=== PATIENT | male | born 1935 | race Caucasian/White ===

== ENCOUNTER 2021-08-07 17:03 | Inpatient (IN) | payer MEDICARE ==
[~2021-08-07] VITALS: Ht 182.9 cm; Wt 55.3 kg
[2021-08-07] MEDS ORDERED: TIOT18CA IH (17:48)
[2021-08-07] MEDS ORDERED: AMLO-186 PO (17:48)
[2021-08-07] MEDS ORDERED: CHOL10004 PO (17:48)
[2021-08-07] MEDS ORDERED: ALBU2.5V5 NEB (17:48)
[2021-08-07] MEDS ORDERED: ACET325T21 PO (17:48)
[2021-08-07] MEDS ORDERED: UBID100T5 PO (17:48)
[2021-08-07] MEDS ORDERED: MELA3TAB4 PO (17:48)
[2021-08-07] MEDS ORDERED: FOLIC ACID PO (17:48)
[2021-08-07] MEDS ORDERED: CALC-30 PO (17:48)
[2021-08-07] MEDS ORDERED: BUDE10.2 IH (17:48)
[2021-08-07] MEDS ORDERED: DONE5TAB7 PO (17:48)
[2021-08-07] MEDS ORDERED: ALBUTEROL SULFATE 2.5 MG/3 ML NEBU. NEB PRN (18:45)
[2021-08-07] MEDS ORDERED: METHYL SALICYLATE/MENTHOL TOPICAL OINTMENT 57GM TUBE. TP PRN (18:45)
[2021-08-07] MEDS ORDERED: ACETAMINOPHEN 325 MG TABLET PO PRN (18:45)
[2021-08-07] MEDS ORDERED: MAGNESIUM HYDROXIDE 2,400 MG/30 ML ORAL.SUSP. PO PRN (18:45)
[2021-08-07] MEDS ORDERED: MAG HYDROX/AL HYDROX/SIMETH 30 ML ORAL.SUSP PO PRN (18:45)
[2021-08-07] MEDS ORDERED: IPRATRPIUM/ALBUTEROL 0.5/2.5MG 3 ML NEBU. NEB SCH (20:00)
[2021-08-07] MEDS ORDERED: IPRATROPIUM/ALBUTEROL 20/100mcg/INH INHALER. INH PRN (20:00)
[2021-08-07] MEDS ORDERED: BUDESONIDE 0.5 MG/2 ML NEBU NEB SCH (20:00)
[2021-08-07] MEDS ORDERED: DONEPEZIL HCL 5 MG TABLET. PO SCH (21:00)
[2021-08-07] MEDS ORDERED: MELATONIN 3 MG TABLET PO SCH (21:00)
[2021-08-07] MEDS: FLUTICASONE FUROATE 100mcg/INH ELLIPTA INHALER. INH SCH (21:00)
[2021-08-07] MEDS ORDERED: NON FORMULARY ITEM (Budesonide/Formoterol Fumarate (Symbicort 160-4.5 Mcg Inhaler) 2 PUFF) IH SCH (21:00)
--- NOTE | 2021-08-07 22:23 | PDOC ---
Exam Note: Marvin Note: Please also refer to the separate dictated note~for this date of service dictated separately.~Patient seen individually. Discussed the patient with Nursing staff reviewed the chart.~Reviewed interim history and current functioning. Reviewed vital signs,~Labs/ Radiology~and current medications noted below. Continue current treatment with the changes noted in the dictated addendum note Current Medications: Meds: Current Medications Medications (Trade) Dose Ordered Sig/Joyce Route PRN Reason Start Time Stop Time Status Last Admin Dose Admin Donepezil HCl (Aricept) 5 mg HS PO 08/07/21 21:00 08/07/21 20:18 Melatonin (Melatonin) 6 mg QHS PO 08/07/21 21:00 08/07/21 20:18 I have reviewed the current psychotropics carefully including drug interactions. Risk benefit ratio favors no change other than as noted in my dictated progress note. Diagnosis: Problems: (1) Impulse control disorder LES MORA MD Aug 07, 2021 22:23
[2021-08-08 06:07] VITALS: BP 120/84
[2021-08-08 07:50] LABS: BASO % 0 % (0-3); EOS % 0 % (0-3); HEMATOCRIT 37.7 % (39.0-53.0); HEMOGLOBIN 12.5 g/dL (13.0-17.5); LYMPH # 1.7 x10^3/uL (1.0-4.8); LYMPH % 8 % (24-48); MEAN CORPUSCULAR HEMOGLOBIN 31 pg (25-35); MEAN CORPUSCULAR HGB CONC 33 g/dL (31-37); MEAN CORPUSCULAR VOLUME 93 fL (79-100); MONO # 1.2 x10^3/uL (0.0-1.1); MONO % 5 % (0-9); NEUT # 19.3 x10^3uL (1.8-7.7); NEUT % 87 % (31-73); PLATELET COUNT 292 x10^3/uL (140-400); RED BLOOD COUNT 4.05 x10^6/uL (4.30-5.70); RED CELL DISTRIBUTION WIDTH 13.4 % (11.5-14.5); WHITE BLOOD COUNT 22.2 x10^3/uL (4.0-11.0)
[2021-08-08 08:01] LABS: ALBUMIN 2.9 g/dL (3.4-5.0); ALBUMIN/GLOBULIN RATIO 0.6 (1.0-1.7); CALCIUM 8.7 mg/dL (8.5-10.1); CREATININE 0.9 mg/dL (0.7-1.3); GFR 80.2; MAGNESIUM 1.9 mg/dL (1.8-2.4); POTASSIUM 3.6 mmol/L (3.5-5.1); TOTAL BILIRUBIN 0.8 mg/dL (0.2-1.0); TOTAL PROTEIN 7.4 g/dL (6.4-8.2)
[2021-08-08] MEDS ORDERED: NON FORMULARY ITEM (Tiotropium Bromide (Spiriva) 1 CAP) IH SCH (09:00)
[2021-08-08] MEDS: FLUTICASONE FUROATE 100mcg/INH ELLIPTA INHALER. INH SCH ×2 (09:00→20:17)
[2021-08-08] MEDS ORDERED: FLU VACC QUAD 21-22 (6MOS+) PF 0.5 ML SYRINGE. VAX IM ONE (09:00)
[2021-08-08] MEDS: UBIDECARENONE 50 MG CAPSULE. PO SCH (10:36)
[2021-08-08] MEDS: FOLIC ACID 1 MG TABLET PO SCH (10:37)
[2021-08-08] MEDS: CALCIUM CARB/VIT D3 500/200 TABLET PO SCH (10:37)
[2021-08-08] MEDS: amLODIPine BESYLATE 5 MG TABLET PO SCH (10:37)
[2021-08-08 13:50] LABS: % ATYL 2 % (0-0); % BANDS 8 % (0-9); % LYMPHS 7 % (24-48); % MONOS 7 % (0-10); % SEGS 76 % (35-66)
[2021-08-08 13:54] LABS: PLT ESTIMATE ADEQUATE (ADEQUATE)
[2021-08-08 15:37] VITALS: BP 146/73
[2021-08-08] MEDS ORDERED: DEXTROSE 50% 25 GM / 50ML DISP.SYRIN. IV PRN (17:00)
[2021-08-08] MEDS: INSULIN LISPRO 300 UNITS/3 ML VIAL. SQ SCH (17:00)
--- NOTE | 2021-08-08 19:13 | RAD ---
EXAM: PA and Lateral Views of the Chest DATE: 08/08/2021 5:46 PM INDICATION: Reason: worsening shortness of breath and leukocytosis / Spl. Instructions: / History: COMPARISON: No Prior FINDINGS: The heart is not enlarged. Mediastinal and hilar contours are normal. Aortic calcifications are seen. Nodular opacity right lower lung. Linear opacities left lung base. No pleural effusion or pneumothorax. IMPRESSION: Nodular opacity right lower lung, possibly developing consolidative process. However imaging follow-u p to resolution is recommended as underlying mass is not excluded. Electronically signed by: Colin Herrera MD (08/08/2021 7:10 PM) PRANAY
--- NOTE | 2021-08-08 19:15 | RAD ---
EXAM: 2 views left hand DATE: 08/08/2021 5:46 PM INDICATION: Reason: skin tear, redness, concen for infection / Spl. Instructions: / History: . COMPARISON: No Prior FINDINGS: Atherosclerotic vascular calcifications are seen. With advanced thumb CMC DJD. Multifocal scattered I P DJD. Borderline ulnar minus variance. Distal radioulnar joint degenerative changes are seen. No acu te fracture or dislocation. No definite retained radiopaque foreign body. Prominent dorsal soft tissu e swelling overlying the metacarpals. IMPRESSION: 1. Soft tissue swelling overlying the dorsal metacarpals without acute fracture or dislocation or re tained foreign body. 2. Multifocal degenerative changes, with advanced thumb CMC DJD. Electronically signed by: Colin Herrera MD (08/08/2021 7:13 PM) PRANAY
[2021-08-08 20:08] LABS: THYROID STIM HORMONE (TSH) 0.351 uIU/mL (0.358-3.740)
[2021-08-08] MEDS: MELATONIN 3 MG TABLET PO SCH (20:18)
[2021-08-08] MEDS: MIRTAZAPINE 7.5 MG TABLET. PO SCH (20:18)
[2021-08-08] MEDS ORDERED: DONEPEZIL HCL 10 MG TABLET PO SCH (21:00)
--- NOTE | 2021-08-08 22:00 | PDOC ---
Exam Note: Marvin Note: Please also refer to the separate dictated note~for this date of service dictated separately.~Patient seen individually. Discussed the patient with Nursing staff reviewed the chart.~Reviewed interim history and current functioning. Reviewed vital signs,~Labs/ Radiology~and current medications noted below. Continue current treatment with the changes noted in the dictated addendum note Assessment: Vital Signs/I&O: Vital Signs Date Time Temp Pulse Resp B/P (MAP) Pulse Ox O2 Delivery O2 Flow Rate FiO2 08/08/21 15:37 98.9 80 20 146/73 (97) 94 I & O 08/07/21 08/07/21 08/08/21 15:00 23:00 07:00 Intake Total 120 ml Balance 120 ml Labs: Laboratory Tests Test 08/08/21 06:50 08/08/21 17:44 08/08/21 19:23 White Blood Count 22.2 x10^3/uL (4.0-11.0) H Red Blood Count 4.05 x10^6/uL (4.30-5.70) L Hemoglobin 12.5 g/dL (13.0-17.5) L Hematocrit 37.7 % (39.0-53.0) L Mean Corpuscular Volume 93 fL (79-100) Mean Corpuscular Hemoglobin 31 pg (25-35) Mean Corpuscular Hemoglobin Concent 33 g/dL (31-37) Red Cell Distribution Width 13.4 % (11.5-14.5) Platelet Count 292 x10^3/uL (140-400) Neutrophils (%) (Auto) 87 % (31-73) H Lymphocytes (%) (Auto) 8 % (24-48) L Monocytes (%) (Auto) 5 % (0-9) Eosinophils (%) (Auto) 0 % (0-3) Basophils (%) (Auto) 0 % (0-3) Neutrophils # (Auto) 19.3 x10^3uL (1.8-7.7) H Lymphocytes # (Auto) 1.7 x10^3/uL (1.0-4.8) Monocytes # (Auto) 1.2 x10^3/uL (0.0-1.1) H Eosinophils # (Auto) 0.0 x10^3/uL (0.0-0.7) Basophils # (Auto) 0.0 x10^3/uL (0.0-0.2) Segmented Neutrophils % 76 % (35-66) H Band Neutrophils % 8 % (0-9) Lymphocytes % 7 % (24-48) L Atypical Lymphocytes % (Manual) 2 % (0-0) H Monocytes % 7 % (0-10) Platelet Estimate Adequate (ADEQUATE) D-Dimer (Jacque) 0.74 mg/L (0.00-0.50) H Sodium Level 133 mmol/L (136-145) L Potassium Level 3.6 mmol/L (3.5-5.1) Chloride Level 99 mmol/L (98-107) Carbon Dioxide Level 24 mmol/L (21-32) Anion Gap 10 (6-14) Blood Urea Nitrogen 22 mg/dL (8-26) Creatinine 0.9 mg/dL (0.7-1.3) Estimated GFR (Cockcroft-Gault) 80.2 BUN/Creatinine Ratio 24 (6-20) H Glucose Level 195 mg/dL (70-99) H Calcium Level 8.7 mg/dL (8.5-10.1) Magnesium Level 1.9 mg/dL (1.8-2.4) Iron Level 15 ug/dL (65-175) L Total Iron Binding Capacity 175 ug/dL (250-450) L Iron Saturation 9 % (15-34) L Total Bilirubin 0.8 mg/dL (0.2-1.0) Aspartate Amino Transferase (AST) 15 U/L (15-37) Alanine Aminotransferase (ALT) 22 U/L (16-63) Alkaline Phosphatase 75 U/L (46-116) Total Protein 7.4 g/dL (6.4-8.2) Albumin 2.9 g/dL (3.4-5.0) L Albumin/Globulin Ratio 0.6 (1.0-1.7) L Triglycerides Level 40 mg/dL (0-150) Cholesterol Level 163 mg/dL (0-200) LDL Cholesterol, Calculated 102 mg/dL (0-100) H VLDL Cholesterol, Calculated 8 mg/dL (0-40) Non-HDL Cholesterol Calculated 110 mg/dL (0-129) HDL Cholesterol 53 mg/dL (40-60) Cholesterol/HDL Ratio 3.0 Vitamin B12 Level 430 pg/mL (247-911) 25-Hydroxy Vitamin D Total 12.7 ng/mL (30-100) L Thyroid Stimulating Hormone (TSH) 0.351 uIU/mL (0.358-3.740) Treponema pallidum Antibody Nonreactive (Nonreactive) Glucose (Fingerstick) 231 mg/dL (70-99) H 210 mg/dL (70-99) H Current Medications: Meds: Laboratory Tests Test 08/08/21 06:50 08/08/21 17:44 08/08/21 19:23 White Blood Count 22.2 x10^3/uL Red Blood Count 4.05 x10^6/uL Hemoglobin 12.5 g/dL Hematocrit 37.7 % Mean Corpuscular Volume 93 fL Mean Corpuscular Hemoglobin 31 pg Mean Corpuscular Hemoglobin Concent 33 g/dL Red Cell Distribution Width 13.4 % Platelet Count 292 x10^3/uL Neutrophils (%) (Auto) 87 % Lymphocytes (%) (Auto) 8 % Monocytes (%) (Auto) 5 % Eosinophils (%) (Auto) 0 % Basophils (%) (Auto) 0 % Neutrophils # (Auto) 19.3 x10^3uL Lymphocytes # (Auto) 1.7 x10^3/uL Monocytes # (Auto) 1.2 x10^3/uL Eosinophils # (Auto) 0.0 x10^3/uL Basophils # (Auto) 0.0 x10^3/uL Segmented Neutrophils % 76 % Band Neutrophils % 8 % Lymphocytes % 7 % Atypical Lymphocytes % (Manual) 2 % Monocytes % 7 % Platelet Estimate Adequate D-Dimer (Jacque) 0.74 mg/L Sodium Level 133 mmol/L Potassium Level 3.6 mmol/L Chloride Level 99 mmol/L Carbon Dioxide Level 24 mmol/L Anion Gap 10 Blood Urea Nitrogen 22 mg/dL Creatinine 0.9 mg/dL Estimated GFR (Cockcroft-Gault) 80.2 BUN/Creatinine Ratio 24 Glucose Level 195 mg/dL Calcium Level 8.7 mg/dL Magnesium Level 1.9 mg/dL Iron Level 15 ug/dL Total Iron Binding Capacity 175 ug/dL Iron Saturation 9 % Total Bilirubin 0.8 mg/dL Aspartate Amino Transf (AST/SGOT) 15 U/L Alanine Aminotransferase (ALT/SGPT) 22 U/L Alkaline Phosphatase 75 U/L Total Protein 7.4 g/dL Albumin 2.9 g/dL Albumin/Globulin Ratio 0.6 Triglycerides Level 40 mg/dL Cholesterol Level 163 mg/dL LDL Cholesterol, Calculated 102 mg/dL VLDL Cholesterol, Calculated 8 mg/dL Non-HDL Cholesterol Calculated 110 mg/dL HDL Cholesterol 53 mg/dL Cholesterol/HDL Ratio 3.0 Vitamin B12 Level 430 pg/mL 25-Hydroxy Vitamin D Total 12.7 ng/mL Thyroid Stimulating Hormone (TSH) 0.351 uIU/mL Treponema pallidum Antibody Nonreactive Glucose (Fingerstick) 231 mg/dL 210 mg/dL Current Medications Medications (Trade) Dose Ordered Sig/Joyce Route PRN Reason Start Time Stop Time Status Last Admin Dose Admin Acetaminophen (Tylenol) 650 mg PRN Q4HRS PRN PO pain or fever 08/07/21 18:45 Albuterol Sulfate (Ventolin) 2.5 mg PRN Q6HRS PRN NEB SHORTNESS OF AIR 08/07/21 18:45 08/07/21 19:47 DC Amlodipine Besylate (Norvasc) 5 mg DAILY PO 08/08/21 09:00 08/08/21 10:37 Vitamin D (Vitamin D3) 5,000 unit WEEKLY PO 08/14/21 09:00 Donepezil HCl (Aricept) 5 mg HS PO 08/07/21 21:00 08/08/21 18:37 DC 08/07/21 20:18 Melatonin (Melatonin) 6 mg QHS PO 08/07/21 21:00 08/08/21 18:37 DC 08/07/21 20:18 Non-Formulary Medication (Budesonide/ Formoterol Fumarate (Symbicort 160-4.5 Mcg Inhaler)) 2 puff BID IH 08/07/21 21:00 08/07/21 19:24 DC Calcium/Vitamin D (Oscal D 500mg/ 200uts) 1 tab DAILY PO 08/08/21 09:00 08/08/21 10:37 Non-Formulary Medication (Tiotropium [place] (Spiriva)) 1 cap DAILY IH 08/08/21 09:00 08/07/21 19:24 DC Coenzyme Q10 (Coenzyme Q10) 50 mg DAILY PO 08/08/21 09:00 08/08/21 10:36 Folic Acid (Folic Acid) 1 mg DAILY PO 08/08/21 09:00 08/08/21 10:37 Acetaminophen (Tylenol) 650 mg PRN Q6HRS PRN PO MILD PAIN / TEMP > 100.3'F 08/07/21 18:45 08/07/21 18:51 DC Multi-Ingredient Ointment (Analgesic [place]) 1 niles PRN QID PRN TP MUSCLE PAIN 08/07/21 18:45 Al Hydroxide/Mg Hydroxide (Mylanta Plus Xs) 15 ml PRN AFTMEALHC PRN PO DYSPEPSIA 08/07/21 18:45 Magnesium Hydroxide (Milk Of Magnesia) 2,400 mg PRN QHS PRN PO CONSTIPATION 08/07/21 18:45 Influenza Virus Vaccine Quadrival (Flulaval Quad [id number] Syringe) 0.5 ml ONCE ONCE VAX IM 08/08/21 09:00 08/08/21 09:01 DC 08/08/21 10:45 Budesonide (Pulmicort) 0.5 mg RTBID NEB 08/07/21 20:00 08/07/21 19:48 DC Albuterol/ Ipratropium (Duoneb) 3 ml RTQID NEB 08/07/21 20:00 08/07/21 19:49 DC Albuterol/ Ipratropium (Combivent Respimat 20-100 Mcg) 1 puff PRN Q6HRS PRN INH SHORTNESS OF BREATH 08/07/21 20:00 Fluticasone Furoate (ARNUITY 100mcg ELLIPTA) 1 puff BID INH 08/07/21 21:00 08/08/21 20:17 Insulin Human Lispro (HumaLOG) 0-5 UNITS TIDWMEALS SQ 08/08/21 17:00 Dextrose (Dextrose 50%-Water Syringe) 12.5 gm PRN Q15MIN PRN IV SEE COMMENTS 08/08/21 17:00 Donepezil HCl (Aricept) 10 mg HS PO 08/08/21 21:00 08/08/21 20:18 Melatonin (Melatonin) 3 mg QHS PO 08/08/21 21:00 08/08/21 20:18 Rivastigmine (Exelon) 1 patch DAILY TD 08/09/21 09:00 08/11/21 23:50 Rivastigmine (Exelon) 1 patch DAILY TD 08/12/21 09:00 08/14/21 23:50 Rivastigmine (Exelon 13.3mg) 1 patch DAILY TD 08/15/21 09:00 Mirtazapine (Remeron) 7.5 mg QHS PO 08/08/21 21:00 08/08/21 20:18 Current Medications Medications (Trade) Dose Ordered Sig/Joyce Route PRN Reason Start Time Stop Time Status Last Admin Dose Admin Amlodipine Besylate (Norvasc) 5 mg DAILY PO 08/08/21 09:00 08/08/21 10:37 Calcium/Vitamin D (Oscal D 500mg/ 200uts) 1 tab DAILY PO 08/08/21 09:00 08/08/21 10:37 Coenzyme Q10 (Coenzyme Q10) 50 mg DAILY PO 08/08/21 09:00 08/08/21 10:36 Folic Acid (Folic Acid) 1 mg DAILY PO 08/08/21 09:00 08/08/21 10:37 Influenza Virus Vaccine Quadrival (Flulaval Quad Syringe) 0.5 ml ONCE ONCE VAX IM 08/08/21 09:00 08/08/21 09:01 DC 08/08/21 10:45 Donepezil HCl (Aricept) 10 mg HS PO 08/08/21 21:00 08/08/21 20:18 Melatonin (Melatonin) 3 mg QHS PO 08/08/21 21:00 08/08/21 20:18 Mirtazapine (Remeron) 7.5 mg QHS PO 08/08/21 21:00 08/08/21 20:18 I have reviewed the current psychotropics carefully including drug interactions. Risk benefit ratio favors no change other than as noted in my dictated progress note. Diagnosis: Problems: (1) Impulse control disorder LES MORA MD Aug 08, 2021 22:00
[2021-08-08 22:16] LABS: THYROXINE 7.4 ug/dL (4.5-12.0)
[2021-08-09 01:07] LABS: HEMOGLOBIN A1C 6.1 % (4.8-5.6)
--- NOTE | 2021-08-09 02:57 | CONS ---
DATE OF CONSULTATION: 08/08/2021 REASON FOR CONSULTATION: Medical management. HISTORY OF PRESENT ILLNESS: The patient is an 86-year-old male patient, a resident at [facility] in [place], who was [facility] on account of eloping from the facility, then getting lost, slamming doors, agitated, verbally aggressive, attempting to hit staff, all this in a background of impulse control disorder. PAST MEDICAL HISTORY: The patient himself does not really give any useful information; however, when I examined him, his left hand was markedly swollen with open wound; however, he could not really give me any explanation for why his hand is swollen. His white cell count is also extremely high at 22,000. 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 He has also severe protein calorie malnutrition. PAST SURGICAL HISTORY: Unobtainable. FAMILY HISTORY: Unobtainable. SOCIAL HISTORY: He is a resident at [facility]. He is , has a son and a daughter. He has been a smoker before and also alcohol drinker. He used to work for the [employer]. REVIEW OF SYSTEMS: As per history of present illness. PHYSICAL EXAMINATION: GENERAL: When I examined him this afternoon, he was sitting on the edge of the bed comfortably, in no apparent distress. He was extremely cachectic, in fact, his body mass index only 17.6 kilograms/square meter. He was somewhat pale, but not jaundiced, cyanosed, no lymphadenopathy, no thyromegaly, no jugular venous distention. No lower limb edema. VITAL SIGNS: His heart rate was 18, blood pressure 146/73, temperature was 98.9, respiratory rate 20, and oxygen saturation was 94% on room air. HEAD, EYES, EARS, NOSE, AND THROAT: Showed normocephalic, atraumatic. He has a very peaked nose with very tight skin. Again, the patient with scleroderma, might have some surgery on his nose, although he denied that and was unable to give me an account for that. NECK: Supple, with no lymphadenopathy or thyromegaly. HEART: Showed normal first and second heart sounds. No gallop, rub or murmur. CHEST: Shows central trachea, equally reduced expansion, reduced air entry, vesicular breath sounds. I could not really appreciate any crepitation or rhonchi. ABDOMEN: Scaphoid, soft, nontender. NEUROLOGIC: He is awake, alert, but unable to answer my questions. All his cranial nerves seem to be grossly intact. He moves all extremities without difficulty, ambulates without assistance or assistive devices; however, he has marked muscle wasting and weakness. LABORATORY DATA: On arrival showed a white cell count 22,200, hemoglobin 12.5, hematocrit 37.7, MCV 93 and platelet count 292,000 with a manual differential showed 87% polymorphs, 8% lymphocytes, 5% monocytes. His chemistry showed a serum sodium 133, potassium 3.6, chloride 99, bicarbonate 24, anion gap of 10, BUN 22, creatinine 0.9. Estimated GFR was 80 mL per minute. His glucose 195, calcium was 8.7, magnesium was 1.9. Total bilirubin, AST, ALT, alkaline phosphatase were normal. Total protein 7.4, albumin was 2.9. His D-dimer was 0.74. ALLERGIES: ALLERGIC TO BACITRACIN, NEOMYCIN, AND POLYMYXIN B. MEDICATIONS: He is currently on the following medication: He is on Aricept 5 mg at bedtime, tiotropium bromide for Spiriva HandiHaler 1 inhalation once a day, albuterol sulfate 2.5 mg 3 mL by nebulizer every 6 hours, amlodipine besylate 5 mg once a day, acetaminophen 650 mg every 4 hours, calcium carbonate with vitamin D3 one tablet once a day, Symbicort 160/4.5 two puffs twice a day, cholecalciferol for vitamin D 125 mcg once a week, melatonin 6 mg at bedtime, coenzyme Q10 at 50 mg daily and folic acid 1 mg daily. ASSESSMENT AND PLAN: In summary, this is an 86-year-old male patient who was admitted on account of elopement from the facility, then getting lost, slamming doors, being agitated, verbally aggressive, attempting to hit the staff, all this in a background of impulse control disorder. His past medical history is significant for multiple medical problems including lung cancer, COPD, hypertension, hyperlipidemia, skin cancer, gastroesophageal reflux disease, metabolic encephalopathy, and type 2 diabetes for which he is currently on no medication. The patient has markedly elevated white cell count and also his left hand is markedly swollen on the dorsal aspect with an open wound that seems to be old. My plan is obviously to do a stat chest x-ray and x-ray of the left hand and monitor him closely as he might he has any infection. We will also send urine for culture and sensitivity. Meanwhile, we will continue with all his current medication. Thank you, Dr. Blum, for allowing me to participate in the care of this patient. ZULY DR: Amber TID: [id number]
[2021-08-09 06:27] VITALS: BP 150/78
[2021-08-09 07:19] LABS: BILIRUBIN,URINE SMALL (NEG); CLARITY,URINE HAZY; COLOR,URINE AMBER; GLUCOSE,URINE NEG (NEG); NITRITE,URINE POS (NEG); UROBILINOGEN,URINE 0.2 mg/dL (0.2 mg/dL)
[2021-08-09 07:20] LABS: BACTERIA,URINE 0 /HPF (0-FEW); HYALINE CASTS, URINE OCC /HPF; SQUAMOUS EPITHELIAL CELL,UR FEW /LPF
[2021-08-09] MEDS: INSULIN LISPRO 300 UNITS/3 ML VIAL. SQ SCH ×3 (07:50→16:46)
[2021-08-09] MEDS: amLODIPine BESYLATE 5 MG TABLET PO SCH (08:44)
[2021-08-09] MEDS: FOLIC ACID 1 MG TABLET PO SCH (08:44)
[2021-08-09] MEDS: CALCIUM CARB/VIT D3 500/200 TABLET PO SCH (08:44)
[2021-08-09] MEDS: UBIDECARENONE 50 MG CAPSULE. PO SCH (08:44)
[2021-08-09] MEDS: FLUTICASONE FUROATE 100mcg/INH ELLIPTA INHALER. INH SCH ×2 (08:45→20:20)
[2021-08-09] MEDS: RIVASTIGMINE 4.6MG PATCH. TD SCH (08:45)
[2021-08-09] MEDS ORDERED: IPRATRPIUM/ALBUTEROL 0.5/2.5MG 3 ML NEBU. NEB PRN (14:00)
[2021-08-09 16:06] VITALS: BP 123/76
[2021-08-09] MEDS: MELATONIN 3 MG TABLET PO SCH (20:19)
[2021-08-09] MEDS: MIRTAZAPINE 7.5 MG TABLET. PO SCH (20:19)
[2021-08-09] MEDS: ACETAMINOPHEN 325 MG TABLET PO PRN (20:34)
[2021-08-09] MEDS: CEPHALEXIN 250 MG CAPSULE PO SCH (21:20)
--- NOTE | 2021-08-09 22:08 | PDOC ---
Exam Note: Marvin Note: Please also refer to the separate dictated note~for this date of service dictated separately.~Patient seen individually. Discussed the patient with Nursing staff reviewed the chart.~Reviewed interim history and current functioning. Reviewed vital signs,~Labs/ Radiology~and current medications noted below. Continue current treatment with the changes noted in the dictated addendum note Assessment: Vital Signs/I&O: Vital Signs Date Time Temp Pulse Resp B/P (MAP) Pulse Ox O2 Delivery O2 Flow Rate FiO2 08/09/21 16:06 98.5 85 20 123/76 (92) 95 I & O 08/08/21 08/08/21 08/09/21 15:00 23:00 07:00 Intake Total 60 ml 360 ml Output Total 180 ml Balance 60 ml 360 ml -180 ml Labs: Laboratory Tests Test 08/09/21 05:40 08/09/21 07:32 08/09/21 11:52 08/09/21 16:39 Urine Collection Type Unknown Urine Color Yen Urine Clarity Hazy Urine pH 5.0 Urine Specific [place] >=1.030 Urine Protein 100 mg/dl (NEG-TRACE) Urine Glucose (UA) Neg mg/dL (NEG) Urine Ketones (Stick) Neg mg/dL (NEG) Urine Blood Neg (NEG) Urine Nitrite Pos (NEG) Urine Bilirubin Small (NEG) Urine Urobilinogen Dipstick 0.2 mg/dL (0.2 mg/dL) Urine Leukocyte Esterase Neg (NEG) Urine RBC 1-2 /HPF (0-2) Urine WBC 1-4 /HPF (0-4) Urine Squamous Epithelial Cells Few /LPF Urine Bacteria 0 /HPF (0-FEW) Urine Hyaline Casts Occ /HPF Urine Mucus Mod /LPF Glucose (Fingerstick) 146 mg/dL (70-99) H 188 mg/dL (70-99) H 125 mg/dL (70-99) H Current Medications: Meds: Laboratory Tests Test 08/09/21 05:40 08/09/21 07:32 08/09/21 11:52 08/09/21 16:39 Urine Collection Type Unknown Urine Color Yen Urine Clarity Hazy Urine pH 5.0 Urine Specific [place] >=1.030 Urine Protein 100 mg/dl Urine Glucose (UA) Neg mg/dL Urine Ketones (Stick) Neg mg/dL Urine Blood Neg Urine Nitrite Pos Urine Bilirubin Small Urine Urobilinogen Dipstick 0.2 mg/dL Urine Leukocyte Esterase Neg Urine RBC 1-2 /HPF Urine WBC 1-4 /HPF Urine Squamous Epithelial Cells Few /LPF Urine Bacteria 0 /HPF Urine Hyaline Casts Occ /HPF Urine Mucus Mod /LPF Glucose (Fingerstick) 146 mg/dL 188 mg/dL 125 mg/dL Current Medications Medications (Trade) Dose Ordered Sig/Joyce Route PRN Reason Start Time Stop Time Status Last Admin Dose Admin Acetaminophen (Tylenol) 650 mg PRN Q4HRS PRN PO pain or fever 08/07/21 18:45 08/09/21 20:34 Albuterol Sulfate (Ventolin) 2.5 mg PRN Q6HRS PRN NEB SHORTNESS OF AIR 08/07/21 18:45 08/07/21 19:47 DC Amlodipine Besylate (Norvasc) 5 mg DAILY PO 08/08/21 09:00 08/09/21 08:44 Vitamin D (Vitamin D3) 5,000 unit WEEKLY PO 08/14/21 09:00 Donepezil HCl (Aricept) 5 mg HS PO 08/07/21 21:00 08/08/21 18:37 DC 08/07/21 20:18 Melatonin (Melatonin) 6 mg QHS PO 08/07/21 21:00 08/08/21 18:37 DC 08/07/21 20:18 Non-Formulary Medication (Budesonide/ Formoterol Fumarate (Symbicort 160-4.5 Mcg Inhaler)) 2 puff BID IH 08/07/21 21:00 08/07/21 19:24 DC Calcium/Vitamin D (Oscal D 500mg/ 200uts) 1 tab DAILY PO 08/08/21 09:00 08/09/21 08:44 Non-Formulary Medication (Tiotropium [place] (Spiriva)) 1 cap DAILY IH 08/08/21 09:00 08/07/21 19:24 DC Coenzyme Q10 (Coenzyme Q10) 50 mg DAILY PO 08/08/21 09:00 08/09/21 08:44 Folic Acid (Folic Acid) 1 mg DAILY PO 08/08/21 09:00 08/09/21 08:44 Acetaminophen (Tylenol) 650 mg PRN Q6HRS PRN PO MILD PAIN / TEMP > 100.3'F 08/07/21 18:45 08/07/21 18:51 DC Multi-Ingredient Ointment (Analgesic [place]) 1 niles PRN QID PRN TP MUSCLE PAIN 08/07/21 18:45 Al Hydroxide/Mg Hydroxide (Mylanta Plus Xs) 15 ml PRN AFTMEALHC PRN PO DYSPEPSIA 08/07/21 18:45 Magnesium Hydroxide (Milk Of Magnesia) 2,400 mg PRN QHS PRN PO CONSTIPATION 08/07/21 18:45 Influenza Virus Vaccine Quadrival (Flulaval Quad [id number] Syringe) 0.5 ml ONCE ONCE VAX IM 08/08/21 09:00 08/08/21 09:01 DC 08/08/21 10:45 Budesonide (Pulmicort) 0.5 mg RTBID NEB 08/07/21 20:00 08/07/21 19:48 DC Albuterol/ Ipratropium (Duoneb) 3 ml RTQID NEB 08/07/21 20:00 08/07/21 19:49 DC Albuterol/ Ipratropium (Combivent Respimat 20-100 Mcg) 1 puff PRN Q6HRS PRN INH SHORTNESS OF BREATH 08/07/21 20:00 Fluticasone Furoate (ARNUITY 100mcg ELLIPTA) 1 puff BID INH 08/07/21 21:00 08/08/21 20:17 Insulin Human Lispro (HumaLOG) 0-5 UNITS TIDWMEALS SQ 08/08/21 17:00 Dextrose (Dextrose 50%-Water Syringe) 12.5 gm PRN Q15MIN PRN IV SEE COMMENTS 08/08/21 17:00 Donepezil HCl (Aricept) 10 mg HS PO 08/08/21 21:00 08/09/21 11:16 DC 08/08/21 20:18 Melatonin (Melatonin) 3 mg QHS PO 08/08/21 21:00 08/09/21 20:19 Rivastigmine (Exelon) 1 patch DAILY TD 08/09/21 09:00 08/11/21 23:50 08/09/21 08:45 Rivastigmine (Exelon) 1 patch DAILY TD 08/12/21 09:00 08/14/21 23:50 Rivastigmine (Exelon 13.3mg) 1 patch DAILY TD 08/15/21 09:00 Mirtazapine (Remeron) 7.5 mg QHS PO 08/08/21 21:00 08/09/21 20:19 Sertraline HCl (Zoloft) 25 mg DAILY PO 08/10/21 09:00 08/12/21 21:00 Sertraline HCl (Zoloft) 50 mg DAILY PO 08/13/21 09:00 Albuterol/ Ipratropium (Duoneb) 3 ml PRN QID PRN NEB WHEEZING 08/09/21 14:00 Cephalexin HCl (Keflex) 500 mg TID PO 08/09/21 21:00 08/16/21 21:00 08/09/21 21:20 Current Medications Medications (Trade) Dose Ordered Sig/Joyce Route PRN Reason Start Time Stop Time Status Last Admin Dose Admin Rivastigmine (Exelon) 1 patch DAILY TD 08/09/21 09:00 08/11/21 23:50 08/09/21 08:45 Cephalexin HCl (Keflex) 500 mg TID PO 08/09/21 21:00 08/16/21 21:00 08/09/21 21:20 I have reviewed the current psychotropics carefully including drug interactions. Risk benefit ratio favors no change other than as noted in my dictated progress note. Diagnosis: Problems: (1) Impulse control disorder LES MORA MD Aug 09, 2021 22:08
[2021-08-10 06:10] VITALS: BP 148/74
[2021-08-10 06:28] LABS: BASO # 0.1 x10^3/uL (0.0-0.2); BASO % 1 % (0-3); EOS % 0 % (0-3); HEMATOCRIT 38.3 % (39.0-53.0); HEMOGLOBIN 12.5 g/dL (13.0-17.5); LYMPH # 2.3 x10^3/uL (1.0-4.8); LYMPH % 11 % (24-48); MEAN CORPUSCULAR HEMOGLOBIN 30 pg (25-35); MEAN CORPUSCULAR HGB CONC 33 g/dL (31-37); MEAN CORPUSCULAR VOLUME 93 fL (79-100); MONO # 1.1 x10^3/uL (0.0-1.1); MONO % 6 % (0-9); NEUT # 16.7 x10^3uL (1.8-7.7); NEUT % 82 % (31-73); PLATELET COUNT 304 x10^3/uL (140-400); RED BLOOD COUNT 4.12 x10^6/uL (4.30-5.70); RED CELL DISTRIBUTION WIDTH 13.6 % (11.5-14.5); WHITE BLOOD COUNT 20.3 x10^3/uL (4.0-11.0)
--- NOTE | 2021-08-10 06:43 | EKG ---
[address] [address] Test Date: 2021-08-07 Test Time: 15:36:12 Pat Name: JOANNA ARCHIBALD Department: Room: [address] [place] [address] Gender: M Vessel Captain: : [id number] Requested By: LES MORA Order Number: [id number] Reading MD: Jonas Martinez MD Measurements Intervals [place] Rate: P: [place]: QRS: QRSD: T: QT: QTc: Interpretive Statements Non-diagnostic EKG due to motion artifaction Electronically Signed On 08-13-2021 14:08:56 [employer] by Jonas Martinez MD
[2021-08-10 06:49] LABS: ALBUMIN 2.4 g/dL (3.4-5.0); ALBUMIN/GLOBULIN RATIO 0.5 (1.0-1.7); CALCIUM 9.3 mg/dL (8.5-10.1); POTASSIUM 3.6 mmol/L (3.5-5.1); TOTAL BILIRUBIN 0.6 mg/dL (0.2-1.0); TOTAL PROTEIN 7.1 g/dL (6.4-8.2)
[2021-08-10] MEDS: FLUTICASONE FUROATE 100mcg/INH ELLIPTA INHALER. INH SCH ×2 (07:09→20:55)
[2021-08-10] MEDS: INSULIN LISPRO 300 UNITS/3 ML VIAL. SQ SCH ×3 (07:41→16:56)
[2021-08-10] MEDS: CALCIUM CARB/VIT D3 500/200 TABLET PO SCH (08:13)
[2021-08-10] MEDS: SERTRALINE 25 MG TABLET. PO SCH (08:13)
[2021-08-10] MEDS: CEPHALEXIN 250 MG CAPSULE PO SCH ×3 (08:13→20:55)
[2021-08-10] MEDS: FOLIC ACID 1 MG TABLET PO SCH (08:13)
[2021-08-10] MEDS: UBIDECARENONE 50 MG CAPSULE. PO SCH (08:13)
[2021-08-10] MEDS: amLODIPine BESYLATE 5 MG TABLET PO SCH (08:14)
[2021-08-10] MEDS: RIVASTIGMINE 4.6MG PATCH. TD SCH (08:14)
--- NOTE | 2021-08-10 08:29 | RAD ---
CT HEAD/BRAIN WO Date: 08/10/2021 8:00 AM Clinical Indication: Altered mental status. [facility] admit, establish baseline, hx of lung cancer Comparison: None. Technique: 5 mm axial tomographic images were obtained of the head without contrast. These were view ed on brain and bone windows. One or more of the following dose reduction techniques were utilized: A utomated exposure control (AEC), Adjustment of mA and/or kV according to patient size, Use of iterati ve reconstruction technique such as ASiR, CT scan done according to ALARA and image gently/image weston ly Findings: Mild generalized cerebral and cerebellar volume loss. Moderate nonspecific periventricular hypoattenu ation, most commonly seen with chronic small vessel ischemic disease. Calcified atherosclerosis of th e bilateral cavernous and paraclinoid internal carotid arteries and intracranial vertebral arteries. No intra- or extra-axial mass or fluid collection. No acute hemorrhage. The ventricles are normal in size, shape, and morphology. The shore-white matter junction is normal. The subarachnoid cisterns are patent. The visualized paranasal sinuses are normal. The visualized portions of the orbits and globes are no rmal. The mastoid air cells are clear. The wheelchair van driver topogram shows no lytic lesion or fracture. Impression: No acute intracranial process. Mild cerebral volume loss. Moderate chronic small vessel ischemic disease. Electronically signed by: Harinder Philippe MD (08/10/2021 8:26 AM) [facility]
[2021-08-10 15:58] VITALS: BP 123/82
--- NOTE | 2021-08-10 20:50 | HP ---
DATE OF SERVICE: 08/10/2021 ADMIT DATE: 08/07/2021 PSYCHIATRIC ADMISSION HISTORY AND EVALUATION This is a late entry, date of service, 08/07/2021 covers elements not covered in my initial note. I met with the patient on the evening of 08/07/2021 shortly after he arrived on the unit. Discussed with Heathre Guillen, tutor coordinator, discussed with nursing staff, reviewed current and past records including information from [facility] [place] from where the patient is referred to us. IDENTIFYING DATA: The patient is an 86-year-old male [facility] by his primary care physician/psychiatrist after he was repeatedly eloping from the facility, then getting lost. He is getting increasingly agitated, slamming doors, verbally aggressive, attempting to physically attack staff. The patient's behaviors were deemed dangerous, unmanageable. He had failed outpatient psychiatric intervention resulting in this referral. CHIEF COMPLAINT: "I came here today." I met with the patient shortly after he arrived on the unit. He was aware he came here today from [place], but was unaware of the name of the facility he came from. HISTORY OF PRESENT ILLNESS: The patient has a history of dementia, Alzheimer's, vascular type. He has been at the above facility for a short period of time and getting more agitated, paranoid with sleep and appetite changes, aggressive, disruptive. No active suicidal or homicidal ideation. No clear history of bipolar disorder. PAST PSYCHIATRIC HISTORY: As above. MEDICAL HISTORY: History of lung cancer, COPD, hypertension, hyperlipidemia, skin cancer, GERD, metabolic encephalopathy, diabetes mellitus, Accu-Cheks before meals and at bedtime. ALLERGIES: NEOSPORIN. CODE STATUS: DNR. DIET: Regular. Takes medications whole. Ambulates independently. UA culture, no growth. CURRENT PSYCHOTROPICS: Melatonin 3 mg at bedtime. FAMILY HISTORY: Noncontributory. SOCIAL HISTORY: The patient admits to alcohol abuse history in his younger years, but none for an extended period of time. He worked for the [employer] for several decades. No physical, sexual, elder abuse history is noted. He is not known to be a perpetrator. Reaction to hospitalization, the patient accepting of it. REVIEW OF SYSTEMS: No CV, , pulmonary, eye, ENT system symptoms on review. MENTAL STATUS EXAM: The patient is oriented to himself, and situation. He knew the year was 2020, was somewhat confused by the name of president and when asked about the prior president, he said he remember, but needed assistance in identifying the name. Speech otherwise has some latency. Abstraction fair. Computation impaired. Language function intact. Short-term memory is impaired. No active suicidal or homicidal ideation. Mood and affect are depressed, anxious. LABORATORY DATA: Reviewed. IMPRESSION: Major neurocognitive disorder, Alzheimer, vascular with delusion, depression, behavioral disturbance, anxiety disorder, unspecified; impulse control disorder, unspecified. PLAN: Admit to geropsychiatry unit at [facility]. I will see the patient daily individually from a psychiatric standpoint, medical followup with Dr. Araujo/Dr. Leong. Continue patient on his current psychotropics. He is currently on Aricept 5 mg a day, melatonin 6 mg at bedtime. The above noted 3 mg is corrected. We may consider changing Aricept to Exelon patch depending on the sleep pattern and may add low dose Remeron and may consider the addition of SSRIs for his mood and anxiety symptoms. ESTIMATED LENGTH OF STAY: 10-12 days. DISPOSITION: Plans back to alf when stable. BRETT DR: LELA/leonard TID: [id number]
[2021-08-10] MEDS: MELATONIN 3 MG TABLET PO SCH (20:55)
[2021-08-10] MEDS: MIRTAZAPINE 7.5 MG TABLET. PO SCH (20:55)
[2021-08-10] MEDS: ACETAMINOPHEN 325 MG TABLET PO PRN (21:40)
--- NOTE | 2021-08-10 21:58 | PDOC ---
Exam Note: Marvin Note: Please also refer to the separate dictated note~for this date of service dictated separately.~Patient seen individually. Discussed the patient with Nursing staff reviewed the chart.~Reviewed interim history and current functioning. Reviewed vital signs,~Labs/ Radiology~and current medications noted below. Continue current treatment with the changes noted in the dictated addendum note Assessment: Vital Signs/I&O: Vital Signs Date Time Temp Pulse Resp B/P (MAP) Pulse Ox O2 Delivery O2 Flow Rate FiO2 08/10/21 15:58 98.4 86 24 123/82 (96) 94 I & O 08/09/21 08/09/21 08/10/21 15:00 23:00 07:00 Intake Total 360 ml 240 ml Balance 360 ml 240 ml Labs: Laboratory Tests Test 08/10/21 06:12 08/10/21 07:40 08/10/21 16:54 08/10/21 19:43 White Blood Count 20.3 x10^3/uL (4.0-11.0) H Red Blood Count 4.12 x10^6/uL (4.30-5.70) L Hemoglobin 12.5 g/dL (13.0-17.5) L Hematocrit 38.3 % (39.0-53.0) L Mean Corpuscular Volume 93 fL (79-100) Mean Corpuscular Hemoglobin 30 pg (25-35) Mean Corpuscular Hemoglobin Concent 33 g/dL (31-37) Red Cell Distribution Width 13.6 % (11.5-14.5) Platelet Count 304 x10^3/uL (140-400) Neutrophils (%) (Auto) 82 % (31-73) H Lymphocytes (%) (Auto) 11 % (24-48) L Monocytes (%) (Auto) 6 % (0-9) Eosinophils (%) (Auto) 0 % (0-3) Basophils (%) (Auto) 1 % (0-3) Neutrophils # (Auto) 16.7 x10^3uL (1.8-7.7) H Lymphocytes # (Auto) 2.3 x10^3/uL (1.0-4.8) Monocytes # (Auto) 1.1 x10^3/uL (0.0-1.1) Eosinophils # (Auto) 0.0 x10^3/uL (0.0-0.7) Basophils # (Auto) 0.1 x10^3/uL (0.0-0.2) Sodium Level 137 mmol/L (136-145) Potassium Level 3.6 mmol/L (3.5-5.1) Chloride Level 101 mmol/L (98-107) Carbon Dioxide Level 27 mmol/L (21-32) Anion Gap 9 (6-14) Blood Urea Nitrogen 31 mg/dL (8-26) H Creatinine 1.0 mg/dL (0.7-1.3) Estimated GFR (Cockcroft-Gault) 71.0 BUN/Creatinine Ratio 31 (6-20) H Glucose Level 138 mg/dL (70-99) H Calcium Level 9.3 mg/dL (8.5-10.1) Total Bilirubin 0.6 mg/dL (0.2-1.0) Aspartate Amino Transferase (AST) 24 U/L (15-37) Alanine Aminotransferase (ALT) 21 U/L (16-63) Alkaline Phosphatase 69 U/L (46-116) Total Protein 7.1 g/dL (6.4-8.2) Albumin 2.4 g/dL (3.4-5.0) L Albumin/Globulin Ratio 0.5 (1.0-1.7) L Glucose (Fingerstick) 136 mg/dL (70-99) H 116 mg/dL (70-99) H 208 mg/dL (70-99) H Current Medications: Meds: Laboratory Tests Test 08/10/21 06:12 08/10/21 07:40 08/10/21 16:54 08/10/21 19:43 White Blood Count 20.3 x10^3/uL Red Blood Count 4.12 x10^6/uL Hemoglobin 12.5 g/dL Hematocrit 38.3 % Mean Corpuscular Volume 93 fL Mean Corpuscular Hemoglobin 30 pg Mean Corpuscular Hemoglobin Concent 33 g/dL Red Cell Distribution Width 13.6 % Platelet Count 304 x10^3/uL Neutrophils (%) (Auto) 82 % Lymphocytes (%) (Auto) 11 % Monocytes (%) (Auto) 6 % Eosinophils (%) (Auto) 0 % Basophils (%) (Auto) 1 % Neutrophils # (Auto) 16.7 x10^3uL Lymphocytes # (Auto) 2.3 x10^3/uL Monocytes # (Auto) 1.1 x10^3/uL Eosinophils # (Auto) 0.0 x10^3/uL Basophils # (Auto) 0.1 x10^3/uL Sodium Level 137 mmol/L Potassium Level 3.6 mmol/L Chloride Level 101 mmol/L Carbon Dioxide Level 27 mmol/L Anion Gap 9 Blood Urea Nitrogen 31 mg/dL Creatinine 1.0 mg/dL Estimated GFR (Cockcroft-Gault) 71.0 BUN/Creatinine Ratio 31 Glucose Level 138 mg/dL Calcium Level 9.3 mg/dL Total Bilirubin 0.6 mg/dL Aspartate Amino Transf (AST/SGOT) 24 U/L Alanine Aminotransferase (ALT/SGPT) 21 U/L Alkaline Phosphatase 69 U/L Total Protein 7.1 g/dL Albumin 2.4 g/dL Albumin/Globulin Ratio 0.5 Glucose (Fingerstick) 136 mg/dL 116 mg/dL 208 mg/dL Current Medications Medications (Trade) Dose Ordered Sig/Joyce Route PRN Reason Start Time Stop Time Status Last Admin Dose Admin Acetaminophen (Tylenol) 650 mg PRN Q4HRS PRN PO pain or fever 08/07/21 18:45 08/10/21 21:40 Albuterol Sulfate (Ventolin) 2.5 mg PRN Q6HRS PRN NEB SHORTNESS OF AIR 08/07/21 18:45 08/07/21 19:47 DC Amlodipine Besylate (Norvasc) 5 mg DAILY PO 08/08/21 09:00 08/10/21 08:14 Vitamin D (Vitamin D3) 5,000 unit WEEKLY PO 08/14/21 09:00 Donepezil HCl (Aricept) 5 mg HS PO 08/07/21 21:00 08/08/21 18:37 DC 08/07/21 20:18 Melatonin (Melatonin) 6 mg QHS PO 08/07/21 21:00 08/08/21 18:37 DC 08/07/21 20:18 Non-Formulary Medication (Budesonide/ Formoterol Fumarate (Symbicort 160-4.5 Mcg Inhaler)) 2 puff BID IH 08/07/21 21:00 08/07/21 19:24 DC Calcium/Vitamin D (Oscal D 500mg/ 200uts) 1 tab DAILY PO 08/08/21 09:00 08/10/21 08:13 Non-Formulary Medication (Tiotropium [place] (Spiriva)) 1 cap DAILY IH 08/08/21 09:00 08/07/21 19:24 DC Coenzyme Q10 (Coenzyme Q10) 50 mg DAILY PO 08/08/21 09:00 08/10/21 08:13 Folic Acid (Folic Acid) 1 mg DAILY PO 08/08/21 09:00 08/10/21 08:13 Acetaminophen (Tylenol) 650 mg PRN Q6HRS PRN PO MILD PAIN / TEMP > 100.3'F 08/07/21 18:45 08/07/21 18:51 DC Multi-Ingredient Ointment (Analgesic [place]) 1 niles PRN QID PRN TP MUSCLE PAIN 08/07/21 18:45 Al Hydroxide/Mg Hydroxide (Mylanta Plus Xs) 15 ml PRN AFTMEALHC PRN PO DYSPEPSIA 08/07/21 18:45 Magnesium Hydroxide (Milk Of Magnesia) 2,400 mg PRN QHS PRN PO CONSTIPATION 08/07/21 18:45 Influenza Virus Vaccine Quadrival (Flulaval Quad [id number] Syringe) 0.5 ml ONCE ONCE VAX IM 08/08/21 09:00 08/08/21 09:01 DC 08/08/21 10:45 Budesonide (Pulmicort) 0.5 mg RTBID NEB 08/07/21 20:00 08/07/21 19:48 DC Albuterol/ Ipratropium (Duoneb) 3 ml RTQID NEB 08/07/21 20:00 08/07/21 19:49 DC Albuterol/ Ipratropium (Combivent Respimat 20-100 Mcg) 1 puff PRN Q6HRS PRN INH SHORTNESS OF BREATH 08/07/21 20:00 Fluticasone Furoate (ARNUITY 100mcg ELLIPTA) 1 puff BID INH 08/07/21 21:00 08/10/21 20:55 Insulin Human Lispro (HumaLOG) 0-5 UNITS TIDWMEALS SQ 08/08/21 17:00 08/10/21 12:00 Dextrose (Dextrose 50%-Water Syringe) 12.5 gm PRN Q15MIN PRN IV SEE COMMENTS 08/08/21 17:00 Donepezil HCl (Aricept) 10 mg HS PO 08/08/21 21:00 08/09/21 11:16 DC 08/08/21 20:18 Melatonin (Melatonin) 3 mg QHS PO 08/08/21 21:00 08/10/21 20:55 Rivastigmine (Exelon) 1 patch DAILY TD 08/09/21 09:00 08/11/21 23:50 08/10/21 08:14 Rivastigmine (Exelon) 1 patch DAILY TD 08/12/21 09:00 08/14/21 23:50 Rivastigmine (Exelon 13.3mg) 1 patch DAILY TD 08/15/21 09:00 Mirtazapine (Remeron) 7.5 mg QHS PO 08/08/21 21:00 08/10/21 20:55 Sertraline HCl (Zoloft) 25 mg DAILY PO 08/10/21 09:00 08/12/21 21:00 08/10/21 08:13 Sertraline HCl (Zoloft) 50 mg DAILY PO 08/13/21 09:00 Albuterol/ Ipratropium (Duoneb) 3 ml PRN QID PRN NEB WHEEZING 08/09/21 14:00 08/10/21 06:39 DC Cephalexin HCl (Keflex) 500 mg TID PO 08/09/21 21:00 08/16/21 21:00 08/10/21 20:55 Current Medications Medications (Trade) Dose Ordered Sig/Joyce Route PRN Reason Start Time Stop Time Status Last Admin Dose Admin Sertraline HCl (Zoloft) 25 mg DAILY PO 08/10/21 09:00 08/12/21 21:00 08/10/21 08:13 I have reviewed the current psychotropics carefully including drug interactions. Risk benefit ratio favors no change other than as noted in my dictated progress note. Diagnosis: Problems: (1) Dementia of the Alzheimer's type with early onset with behavioral disturbance (2) Impulse control disorder (3) Anxiety disorder, unspecified (4) Dementia, vascular, with depression (5) Dementia, vascular, with delusions (6) Dementia in Alzheimer's disease with depression (7) Dementia in Alzheimer's disease with delusions (8) Major neurocognitive disorder LES MORA MD Aug 10, 2021 21:58
[2021-08-11 06:06] VITALS: BP 123/73
[2021-08-11] MEDS: INSULIN LISPRO 300 UNITS/3 ML VIAL. SQ SCH ×3 (07:23→17:00)
[2021-08-11] MEDS: FOLIC ACID 1 MG TABLET PO SCH (08:14)
[2021-08-11] MEDS: RIVASTIGMINE 4.6MG PATCH. TD SCH (08:14)
[2021-08-11] MEDS: amLODIPine BESYLATE 5 MG TABLET PO SCH (08:14)
[2021-08-11] MEDS: SERTRALINE 25 MG TABLET. PO SCH (08:14)
[2021-08-11] MEDS: CALCIUM CARB/VIT D3 500/200 TABLET PO SCH (08:14)
[2021-08-11] MEDS: CEPHALEXIN 250 MG CAPSULE PO SCH ×3 (08:14→20:18)
[2021-08-11] MEDS: UBIDECARENONE 50 MG CAPSULE. PO SCH (08:15)
[2021-08-11] MEDS: FLUTICASONE FUROATE 100mcg/INH ELLIPTA INHALER. INH SCH ×2 (09:00→20:18)
[2021-08-11] MEDS: ACETAMINOPHEN 325 MG TABLET PO PRN (12:18)
[2021-08-11 15:39] VITALS: BP 116/52
[2021-08-11] MEDS: MIRTAZAPINE 7.5 MG TABLET. PO SCH (20:18)
[2021-08-11] MEDS: MELATONIN 3 MG TABLET PO SCH (20:18)
--- NOTE | 2021-08-11 20:41 | PDOC ---
Exam Note: Marvin Note: This note is a late entry for 08/08/2021 covers elements not covered in my initial note. Subjective: The patient was seen individually in the evening of 08/08/2021 with Ruben FRAZIER, discussed and reviewed the chart. The patient slept 4 hours previous night. Patient remains withdrawn, impulsive, did eat some breakfast, refused lunch, yelling out at times, arguing with staff, withdrawn to his bed. Review of Systems: No CV, , pulmonary, eye, ENT system symptoms on review. Mental Status Exam: The patient is oriented to himself and situation. Speech is coherent. Abstraction fair. Computation impaired. Language function intact. Mood and affect withdrawn. No suicidal or homicidal ideation. Laboratory Data: Reviewed. Impression: Major neurocognitive disorder Alzheimer vascular with delusion, depression, behavioral disturbance. He does have an infection of his left hand with WBC 22.2. We will defer this to Dr. Araujo. Anxiety disorder unspecified. Impulse control distorder unspecified. Plan: Patient slept poorly last night. We will start Remeron 7.5 mg p.o. h.s. We will reduce melatonin from 6 mg h.s. down to 3 mg h.s. Increase Aricept from 5 mg a day to 10 mg a day. Reviewed risk-benefit ratio and drug interactions. Assessment: Vital Signs/I&O: Vital Signs Date Time Temp Pulse Resp B/P (MAP) Pulse Ox O2 Delivery O2 Flow Rate FiO2 08/11/21 15:39 98.7 83 20 116/52 (73) 96 08/11/21 06:06 Room Air I & O 08/10/21 08/10/21 08/11/21 15:00 23:00 07:00 Intake Total 480 ml 340 ml Balance 480 ml 340 ml Labs: Laboratory Tests Test 08/11/21 07:17 08/11/21 11:11 08/11/21 20:05 Glucose (Fingerstick) 135 mg/dL (70-99) H 179 mg/dL (70-99) H 126 mg/dL (70-99) H Current Medications: Meds: Laboratory Tests Test 08/11/21 07:17 08/11/21 11:11 08/11/21 20:05 Glucose (Fingerstick) 135 mg/dL 179 mg/dL 126 mg/dL Current Medications Medications (Trade) Dose Ordered Sig/Joyce Route PRN Reason Start Time Stop Time Status Last Admin Dose Admin Acetaminophen (Tylenol) 650 mg PRN Q4HRS PRN PO pain or fever 08/07/21 18:45 08/11/21 12:18 Albuterol Sulfate (Ventolin) 2.5 mg PRN Q6HRS PRN NEB SHORTNESS OF AIR 08/07/21 18:45 08/07/21 19:47 DC Amlodipine Besylate (Norvasc) 5 mg DAILY PO 08/08/21 09:00 08/11/21 08:14 Vitamin D (Vitamin D3) 5,000 unit WEEKLY PO 08/14/21 09:00 Donepezil HCl (Aricept) 5 mg HS PO 08/07/21 21:00 08/08/21 18:37 DC 08/07/21 20:18 Melatonin (Melatonin) 6 mg QHS PO 08/07/21 21:00 08/08/21 18:37 DC 08/07/21 20:18 Non-Formulary Medication (Budesonide/ Formoterol Fumarate (Symbicort 160-4.5 Mcg Inhaler)) 2 puff BID IH 08/07/21 21:00 08/07/21 19:24 DC Calcium/Vitamin D (Oscal D 500mg/ 200uts) 1 tab DAILY PO 08/08/21 09:00 08/11/21 08:14 Non-Formulary Medication (Tiotropium [place] (Spiriva)) 1 cap DAILY IH 08/08/21 09:00 08/07/21 19:24 DC Coenzyme Q10 (Coenzyme Q10) 50 mg DAILY PO 08/08/21 09:00 08/11/21 08:15 Folic Acid (Folic Acid) 1 mg DAILY PO 08/08/21 09:00 08/11/21 08:14 Acetaminophen (Tylenol) 650 mg PRN Q6HRS PRN PO MILD PAIN / TEMP > 100.3'F 08/07/21 18:45 08/07/21 18:51 DC Multi-Ingredient Ointment (Analgesic [place]) 1 niles PRN QID PRN TP MUSCLE PAIN 08/07/21 18:45 Al Hydroxide/Mg Hydroxide (Mylanta Plus Xs) 15 ml PRN AFTMEALHC PRN PO DYSPEPSIA 08/07/21 18:45 Magnesium Hydroxide (Milk Of Magnesia) 2,400 mg PRN QHS PRN PO CONSTIPATION 08/07/21 18:45 Influenza Virus Vaccine Quadrival (Flulaval Quad [id number] Syringe) 0.5 ml ONCE ONCE VAX IM 08/08/21 09:00 08/08/21 09:01 DC 08/08/21 10:45 Budesonide (Pulmicort) 0.5 mg RTBID NEB 08/07/21 20:00 08/07/21 19:48 DC Albuterol/ Ipratropium (Duoneb) 3 ml RTQID NEB 08/07/21 20:00 08/07/21 19:49 DC Albuterol/ Ipratropium (Combivent Respimat 20-100 Mcg) 1 puff PRN Q6HRS PRN INH SHORTNESS OF BREATH 08/07/21 20:00 Fluticasone Furoate (ARNUITY 100mcg ELLIPTA) 1 puff BID INH 08/07/21 21:00 08/11/21 20:18 Insulin Human Lispro (HumaLOG) 0-5 UNITS TIDWMEALS SQ 08/08/21 17:00 08/11/21 17:00 Dextrose (Dextrose 50%-Water Syringe) 12.5 gm PRN Q15MIN PRN IV SEE COMMENTS 08/08/21 17:00 Donepezil HCl (Aricept) 10 mg HS PO 08/08/21 21:00 08/09/21 11:16 DC 08/08/21 20:18 Melatonin (Melatonin) 3 mg QHS PO 08/08/21 21:00 08/11/21 20:18 Rivastigmine (Exelon) 1 patch DAILY TD 08/09/21 09:00 08/11/21 23:50 08/11/21 08:14 Rivastigmine (Exelon) 1 patch DAILY TD 08/12/21 09:00 08/14/21 23:50 Rivastigmine (Exelon 13.3mg) 1 patch DAILY TD 08/15/21 09:00 Mirtazapine (Remeron) 7.5 mg QHS PO 08/08/21 21:00 08/11/21 20:18 Sertraline HCl (Zoloft) 25 mg DAILY PO 08/10/21 09:00 08/12/21 21:00 08/11/21 08:14 Sertraline HCl (Zoloft) 50 mg DAILY PO 08/13/21 09:00 Albuterol/ Ipratropium (Duoneb) 3 ml PRN QID PRN NEB WHEEZING 08/09/21 14:00 08/10/21 06:39 DC Cephalexin HCl (Keflex) 500 mg TID PO 08/09/21 21:00 08/16/21 21:00 08/11/21 20:18 I have reviewed the current psychotropics carefully including drug interactions. Risk benefit ratio favors no change other than as noted in my dictated progress note. 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
--- NOTE | 2021-08-11 20:43 | PDOC ---
Exam Note: Marvin Note: This note is a late entry for 08/09/2021 covers elements not covered in my initial note. Subjective: The patient was reviewed at treatment team meeting individually in the morning on 08/09/2021 with Evelyn Prado, Heather Fontanez, and eRbekah Onofre (director of social services), Jenny, activity therapy and Yen RN, discussed and reviewed the chart. The patient slept 6 hours previous night. Patient remains confused, withdrawn to his room, yelling at night and in the morning. He feels he is in [place]. Review of Systems: No CV, , pulmonary, eye, ENT system symptoms on review. He is hard of hearing. Mental Status Exam: The patient is oriented to himself and situation. Speech has some latency. Often response is monosyllabic. Abstraction fair. Computation impaired. Language function intact. Attention span short. Mood and affect withdrawn. Laboratory Data: Reviewed. 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 Anxiety disorder unspecified. Impulse control disorder unspecified. Plan: We will stop the Aricept as he is on Exelon patch which is gradually increased to 13.3 mg a day. Start Zoloft 25 mg a day for 3 days, then 50 mg a day. Continue rest of the psychotropics unchanged including Remeron 7.5 mg h.s. Adjust further as clinically indicated. Assessment: Vital Signs/I&O: Vital Signs Date Time Temp Pulse Resp B/P (MAP) Pulse Ox O2 Delivery O2 Flow Rate FiO2 08/11/21 15:39 98.7 83 20 116/52 (73) 96 08/11/21 06:06 Room Air I & O 08/10/21 08/10/21 08/11/21 15:00 23:00 07:00 Intake Total 480 ml 340 ml Balance 480 ml 340 ml Labs: Laboratory Tests Test 08/11/21 07:17 08/11/21 11:11 08/11/21 20:05 Glucose (Fingerstick) 135 mg/dL (70-99) H 179 mg/dL (70-99) H 126 mg/dL (70-99) H Current Medications: Meds: Laboratory Tests Test 08/11/21 07:17 08/11/21 11:11 08/11/21 20:05 Glucose (Fingerstick) 135 mg/dL 179 mg/dL 126 mg/dL Current Medications Medications (Trade) Dose Ordered Sig/Joyce Route PRN Reason Start Time Stop Time Status Last Admin Dose Admin Acetaminophen (Tylenol) 650 mg PRN Q4HRS PRN PO pain or fever 08/07/21 18:45 08/11/21 12:18 Albuterol Sulfate (Ventolin) 2.5 mg PRN Q6HRS PRN NEB SHORTNESS OF AIR 08/07/21 18:45 08/07/21 19:47 DC Amlodipine Besylate (Norvasc) 5 mg DAILY PO 08/08/21 09:00 08/11/21 08:14 Vitamin D (Vitamin D3) 5,000 unit WEEKLY PO 08/14/21 09:00 Donepezil HCl (Aricept) 5 mg HS PO 08/07/21 21:00 08/08/21 18:37 DC 08/07/21 20:18 Melatonin (Melatonin) 6 mg QHS PO 08/07/21 21:00 08/08/21 18:37 DC 08/07/21 20:18 Non-Formulary Medication (Budesonide/ Formoterol Fumarate (Symbicort 160-4.5 Mcg Inhaler)) 2 puff BID IH 08/07/21 21:00 08/07/21 19:24 DC Calcium/Vitamin D (Oscal D 500mg/ 200uts) 1 tab DAILY PO 08/08/21 09:00 08/11/21 08:14 Non-Formulary Medication (Tiotropium [place] (Spiriva)) 1 cap DAILY IH 08/08/21 09:00 08/07/21 19:24 DC Coenzyme Q10 (Coenzyme Q10) 50 mg DAILY PO 08/08/21 09:00 08/11/21 08:15 Folic Acid (Folic Acid) 1 mg DAILY PO 08/08/21 09:00 08/11/21 08:14 Acetaminophen (Tylenol) 650 mg PRN Q6HRS PRN PO MILD PAIN / TEMP > 100.3'F 08/07/21 18:45 08/07/21 18:51 DC Multi-Ingredient Ointment (Analgesic [place]) 1 niles PRN QID PRN TP MUSCLE PAIN 08/07/21 18:45 Al Hydroxide/Mg Hydroxide (Mylanta Plus Xs) 15 ml PRN AFTMEALHC PRN PO DYSPEPSIA 08/07/21 18:45 Magnesium Hydroxide (Milk Of Magnesia) 2,400 mg PRN QHS PRN PO CONSTIPATION 08/07/21 18:45 Influenza Virus Vaccine Quadrival (Flulaval Quad Syringe) 0.5 ml ONCE ONCE VAX IM 08/08/21 09:00 08/08/21 09:01 DC 08/08/21 10:45 Budesonide (Pulmicort) 0.5 mg RTBID NEB 08/07/21 20:00 08/07/21 19:48 DC Albuterol/ Ipratropium (Duoneb) 3 ml RTQID NEB 08/07/21 20:00 08/07/21 19:49 DC Albuterol/ Ipratropium (Combivent Respimat 20-100 Mcg) 1 puff PRN Q6HRS PRN INH SHORTNESS OF BREATH 08/07/21 20:00 Fluticasone Furoate (ARNUITY 100mcg ELLIPTA) 1 puff BID INH 08/07/21 21:00 08/11/21 20:18 Insulin Human Lispro (HumaLOG) 0-5 UNITS TIDWMEALS SQ 08/08/21 17:00 08/11/21 17:00 Dextrose (Dextrose 50%-Water Syringe) 12.5 gm PRN Q15MIN PRN IV SEE COMMENTS 08/08/21 17:00 Donepezil HCl (Aricept) 10 mg HS PO 08/08/21 21:00 08/09/21 11:16 DC 08/08/21 20:18 Melatonin (Melatonin) 3 mg QHS PO 08/08/21 21:00 08/11/21 20:18 Rivastigmine (Exelon) 1 patch DAILY TD 08/09/21 09:00 08/11/21 23:50 08/11/21 08:14 Rivastigmine (Exelon) 1 patch DAILY TD 08/12/21 09:00 08/14/21 23:50 Rivastigmine (Exelon 13.3mg) 1 patch DAILY TD 08/15/21 09:00 Mirtazapine (Remeron) 7.5 mg QHS PO 08/08/21 21:00 08/11/21 20:18 Sertraline HCl (Zoloft) 25 mg DAILY PO 08/10/21 09:00 08/12/21 21:00 08/11/21 08:14 Sertraline HCl (Zoloft) 50 mg DAILY PO 08/13/21 09:00 Albuterol/ Ipratropium (Duoneb) 3 ml PRN QID PRN NEB WHEEZING 08/09/21 14:00 08/10/21 06:39 DC Cephalexin HCl (Keflex) 500 mg TID PO 08/09/21 21:00 08/16/21 21:00 08/11/21 20:18 I have reviewed the current psychotropics carefully including drug interactions. Risk benefit ratio favors no change other than as noted in my dictated progress note. Diagnosis: Problems: (1) Impulse control disorder (2) Dementia of the Alzheimer's type with early onset with behavioral disturbance (3) Anxiety disorder, unspecified (4) Dementia, vascular, with depression (5) Dementia, vascular, with delusions (6) Dementia in Alzheimer's disease with depression (7) Dementia in Alzheimer's disease with delusions (8) Major neurocognitive disorder LES MORA MD Aug 11, 2021 20:43
--- NOTE | 2021-08-11 21:07 | PDOC ---
Exam Note: Marvin Note: This note is a late entry for 08/10/2021 covers elements not covered in my initial note. Subjective: The patient was seen individually in the evening of 08/10/2021 with Yen FRAZIER, discussed and reviewed the chart. The patient slept 8-3/[address] head is negative. He spends much time in bed. He is dehydrated and left hand is infected. Dr. Araujo is starting him on IV antibiotics and the patient refused IV fluids for his dehydration. Oral fluids have been pushed. Review of Systems: No CV, , pulmonary, eye, ENT system symptoms on review. He is hard of hearing. Reliability poor. Mental Status Exam: The patient is oriented just to himself. He feels he is in [place]. I met with him in his room. Speech has some latency. Often response is monosyllabic. Abstraction fair. Computation impaired. Language function intact. Attention span short. Mood and affect withdrawn. Laboratory Data: Reviewed. Impression: Major depressive disorder. Anxiety disorder unspecified. Mild cognitive impairment. Plan: No change from initial note. Assessment: Vital Signs/I&O: Vital Signs Date Time Temp Pulse Resp B/P (MAP) Pulse Ox O2 Delivery O2 Flow Rate FiO2 08/11/21 15:39 98.7 83 20 116/52 (73) 96 08/11/21 06:06 Room Air I & O 08/10/21 08/10/21 08/11/21 15:00 23:00 07:00 Intake Total 480 ml 340 ml Balance 480 ml 340 ml Labs: Laboratory Tests Test 08/11/21 07:17 08/11/21 11:11 08/11/21 20:05 Glucose (Fingerstick) 135 mg/dL (70-99) H 179 mg/dL (70-99) H 126 mg/dL (70-99) H Current Medications: Meds: Laboratory Tests Test 08/11/21 07:17 08/11/21 11:11 08/11/21 20:05 Glucose (Fingerstick) 135 mg/dL 179 mg/dL 126 mg/dL Current Medications Medications (Trade) Dose Ordered Sig/Joyce Route PRN Reason Start Time Stop Time Status Last Admin Dose Admin Acetaminophen (Tylenol) 650 mg PRN Q4HRS PRN PO pain or fever 08/07/21 18:45 08/11/21 12:18 Albuterol Sulfate (Ventolin) 2.5 mg PRN Q6HRS PRN NEB SHORTNESS OF AIR 08/07/21 18:45 08/07/21 19:47 DC Amlodipine Besylate (Norvasc) 5 mg DAILY PO 08/08/21 09:00 08/11/21 08:14 Vitamin D (Vitamin D3) 5,000 unit WEEKLY PO 08/14/21 09:00 Donepezil HCl (Aricept) 5 mg HS PO 08/07/21 21:00 08/08/21 18:37 DC 08/07/21 20:18 Melatonin (Melatonin) 6 mg QHS PO 08/07/21 21:00 08/08/21 18:37 DC 08/07/21 20:18 Non-Formulary Medication (Budesonide/ Formoterol Fumarate (Symbicort 160-4.5 Mcg Inhaler)) 2 puff BID IH 08/07/21 21:00 08/07/21 19:24 DC Calcium/Vitamin D (Oscal D 500mg/ 200uts) 1 tab DAILY PO 08/08/21 09:00 08/11/21 08:14 Non-Formulary Medication (Tiotropium [place] (Spiriva)) 1 cap DAILY IH 08/08/21 09:00 08/07/21 19:24 DC Coenzyme Q10 (Coenzyme Q10) 50 mg DAILY PO 08/08/21 09:00 08/11/21 08:15 Folic Acid (Folic Acid) 1 mg DAILY PO 08/08/21 09:00 08/11/21 08:14 Acetaminophen (Tylenol) 650 mg PRN Q6HRS PRN PO MILD PAIN / TEMP > 100.3'F 08/07/21 18:45 08/07/21 18:51 DC Multi-Ingredient Ointment (Analgesic [place]) 1 niles PRN QID PRN TP MUSCLE PAIN 08/07/21 18:45 Al Hydroxide/Mg Hydroxide (Mylanta Plus Xs) 15 ml PRN AFTMEALHC PRN PO DYSPEPSIA 08/07/21 18:45 Magnesium Hydroxide (Milk Of Magnesia) 2,400 mg PRN QHS PRN PO CONSTIPATION 08/07/21 18:45 Influenza Virus Vaccine Quadrival (Flulaval Quad Syringe) 0.5 ml ONCE ONCE VAX IM 08/08/21 09:00 08/08/21 09:01 DC 08/08/21 10:45 Budesonide (Pulmicort) 0.5 mg RTBID NEB 08/07/21 20:00 08/07/21 19:48 DC Albuterol/ Ipratropium (Duoneb) 3 ml RTQID NEB 08/07/21 20:00 08/07/21 19:49 DC Albuterol/ Ipratropium (Combivent Respimat 20-100 Mcg) 1 puff PRN Q6HRS PRN INH SHORTNESS OF BREATH 08/07/21 20:00 Fluticasone Furoate (ARNUITY 100mcg ELLIPTA) 1 puff BID INH 08/07/21 21:00 08/11/21 20:18 Insulin Human Lispro (HumaLOG) 0-5 UNITS TIDWMEALS SQ 08/08/21 17:00 08/11/21 17:00 Dextrose (Dextrose 50%-Water Syringe) 12.5 gm PRN Q15MIN PRN IV SEE COMMENTS 08/08/21 17:00 Donepezil HCl (Aricept) 10 mg HS PO 08/08/21 21:00 08/09/21 11:16 DC 08/08/21 20:18 Melatonin (Melatonin) 3 mg QHS PO 08/08/21 21:00 08/11/21 20:18 Rivastigmine (Exelon) 1 patch DAILY TD 08/09/21 09:00 08/11/21 23:50 08/11/21 08:14 Rivastigmine (Exelon) 1 patch DAILY TD 08/12/21 09:00 08/14/21 23:50 Rivastigmine (Exelon 13.3mg) 1 patch DAILY TD 08/15/21 09:00 Mirtazapine (Remeron) 7.5 mg QHS PO 08/08/21 21:00 08/11/21 20:18 Sertraline HCl (Zoloft) 25 mg DAILY PO 08/10/21 09:00 08/12/21 21:00 08/11/21 08:14 Sertraline HCl (Zoloft) 50 mg DAILY PO 08/13/21 09:00 Albuterol/ Ipratropium (Duoneb) 3 ml PRN QID PRN NEB WHEEZING 08/09/21 14:00 08/10/21 06:39 DC Cephalexin HCl (Keflex) 500 mg TID PO 08/09/21 21:00 08/16/21 21:00 08/11/21 20:18 I have reviewed the current psychotropics carefully including drug interactions. Risk benefit ratio favors no change other than as noted in my dictated progress note. Diagnosis: Problems: (1) Impulse control disorder (2) Dementia of the Alzheimer's type with early onset with behavioral disturbance (3) Anxiety disorder, unspecified (4) Dementia, vascular, with depression (5) Dementia, vascular, with delusions (6) Dementia in Alzheimer's disease with depression (7) Dementia in Alzheimer's disease with delusions (8) Major neurocognitive disorder LES MORA MD Aug 11, 2021 21:07
--- NOTE | 2021-08-11 21:08 | PDOC ---
Exam Note: Marvin Note: Please also refer to the separate dictated note~for this date of service dictated separately.~Patient seen individually. Discussed the patient with Nursing staff reviewed the chart.~Reviewed interim history and current functioning. Reviewed vital signs,~Labs/ Radiology~and current medications noted below. Continue current treatment with the changes noted in the dictated addendum note Assessment: Vital Signs/I&O: Vital Signs Date Time Temp Pulse Resp B/P (MAP) Pulse Ox O2 Delivery O2 Flow Rate FiO2 08/11/21 15:39 98.7 83 20 116/52 (73) 96 08/11/21 06:06 Room Air I & O 08/10/21 08/10/21 08/11/21 15:00 23:00 07:00 Intake Total 480 ml 340 ml Balance 480 ml 340 ml Labs: Laboratory Tests Test 08/11/21 07:17 08/11/21 11:11 08/11/21 20:05 Glucose (Fingerstick) 135 mg/dL (70-99) H 179 mg/dL (70-99) H 126 mg/dL (70-99) H Current Medications: I have reviewed the current psychotropics carefully including drug interactions. Risk benefit ratio favors no change other than as noted in my dictated progress note. Diagnosis: Problems: (1) Impulse control disorder (2) Dementia of the Alzheimer's type with early onset with behavioral disturbance (3) Anxiety disorder, unspecified (4) Dementia, vascular, with depression (5) Dementia, vascular, with delusions (6) Dementia in Alzheimer's disease with depression (7) Dementia in Alzheimer's disease with delusions (8) Major neurocognitive disorder LES MORA MD Aug 11, 2021 21:08
[2021-08-12 06:34] VITALS: BP 137/68
[2021-08-12] MEDS: INSULIN LISPRO 300 UNITS/3 ML VIAL. SQ SCH ×3 (08:00→17:00)
[2021-08-12] MEDS: FOLIC ACID 1 MG TABLET PO SCH (08:59)
[2021-08-12] MEDS: amLODIPine BESYLATE 5 MG TABLET PO SCH (08:59)
[2021-08-12] MEDS: CALCIUM CARB/VIT D3 500/200 TABLET PO SCH (08:59)
[2021-08-12] MEDS: CEPHALEXIN 250 MG CAPSULE PO SCH ×3 (08:59→20:00)
[2021-08-12] MEDS: UBIDECARENONE 50 MG CAPSULE. PO SCH (08:59)
[2021-08-12] MEDS: SERTRALINE 25 MG TABLET. PO SCH (08:59)
[2021-08-12] MEDS: RIVASTIGMINE 9.5MG PATCH. TD SCH (09:06)
[2021-08-12 11:39] LABS: BASO % 0 % (0-3); EOS # 0.1 x10^3/uL (0.0-0.7); EOS % 1 % (0-3); HEMATOCRIT 36.1 % (39.0-53.0); HEMOGLOBIN 11.6 g/dL (13.0-17.5); LYMPH # 1.7 x10^3/uL (1.0-4.8); LYMPH % 17 % (24-48); MEAN CORPUSCULAR HEMOGLOBIN 31 pg (25-35); MEAN CORPUSCULAR HGB CONC 32 g/dL (31-37); MEAN CORPUSCULAR VOLUME 95 fL (79-100); MONO # 0.7 x10^3/uL (0.0-1.1); MONO % 7 % (0-9); NEUT % 75 % (31-73); PLATELET COUNT 325 x10^3/uL (140-400); RED BLOOD COUNT 3.78 x10^6/uL (4.30-5.70); RED CELL DISTRIBUTION WIDTH 13.6 % (11.5-14.5); WHITE BLOOD COUNT 10.6 x10^3/uL (4.0-11.0)
[2021-08-12] MEDS: FLUTICASONE FUROATE 100mcg/INH ELLIPTA INHALER. INH SCH ×2 (12:30→19:58)
[2021-08-12 14:32] LABS: ALBUMIN 2.2 g/dL (3.4-5.0); ALBUMIN/GLOBULIN RATIO 0.5 (1.0-1.7); CALCIUM 8.6 mg/dL (8.5-10.1); CREATININE 0.9 mg/dL (0.7-1.3); GFR 80.2; POTASSIUM 4.2 mmol/L (3.5-5.1); TOTAL BILIRUBIN 0.4 mg/dL (0.2-1.0); TOTAL PROTEIN 6.7 g/dL (6.4-8.2)
[2021-08-12 16:21] VITALS: BP 104/75
[2021-08-12] MEDS: MELATONIN 3 MG TABLET PO SCH (19:59)
[2021-08-12] MEDS: MIRTAZAPINE 7.5 MG TABLET. PO SCH (19:59)
[2021-08-12] MEDS: LACTOBACILLUS RHAMNOSUS GG 1 CAPSULE. PO SCH (20:00)
--- NOTE | 2021-08-12 20:39 | PDOC ---
Exam Note: Marvin Note: Please also refer to the separate dictated note~for this date of service dictated separately.~Patient seen individually. Discussed the patient with Nursing staff reviewed the chart.~Reviewed interim history and current functioning. Reviewed vital signs,~Labs/ Radiology~and current medications noted below. Continue current treatment with the changes noted in the dictated addendum note Assessment: Vital Signs/I&O: Vital Signs Date Time Temp Pulse Resp B/P (MAP) Pulse Ox O2 Delivery O2 Flow Rate FiO2 08/12/21 16:21 97.9 72 18 104/75 (85) 95 Room Air I & O 08/11/21 08/11/21 08/12/21 15:00 23:00 07:00 Intake Total 687 ml 240 ml 0 ml Balance 687 ml 240 ml 0 ml Labs: Laboratory Tests Test 08/12/21 07:23 08/12/21 10:50 08/12/21 11:05 08/12/21 11:47 Glucose (Fingerstick) 136 mg/dL (70-99) H 216 mg/dL (70-99) H White Blood Count 10.6 x10^3/uL (4.0-11.0) Red Blood Count 3.78 x10^6/uL (4.30-5.70) L Hemoglobin 11.6 g/dL (13.0-17.5) L Hematocrit 36.1 % (39.0-53.0) L Mean Corpuscular Volume 95 fL (79-100) Mean Corpuscular Hemoglobin 31 pg (25-35) Mean Corpuscular Hemoglobin Concent 32 g/dL (31-37) Red Cell Distribution Width 13.6 % (11.5-14.5) Platelet Count 325 x10^3/uL (140-400) Neutrophils (%) (Auto) 75 % (31-73) H Lymphocytes (%) (Auto) 17 % (24-48) L Monocytes (%) (Auto) 7 % (0-9) Eosinophils (%) (Auto) 1 % (0-3) Basophils (%) (Auto) 0 % (0-3) Neutrophils # (Auto) 8.0 x10^3uL (1.8-7.7) H Lymphocytes # (Auto) 1.7 x10^3/uL (1.0-4.8) Monocytes # (Auto) 0.7 x10^3/uL (0.0-1.1) Eosinophils # (Auto) 0.1 x10^3/uL (0.0-0.7) Basophils # (Auto) 0.0 x10^3/uL (0.0-0.2) Sodium Level 136 mmol/L (136-145) Potassium Level 4.2 mmol/L (3.5-5.1) Chloride Level 103 mmol/L (98-107) Carbon Dioxide Level 24 mmol/L (21-32) Anion Gap 9 (6-14) Blood Urea Nitrogen 28 mg/dL (8-26) H Creatinine 0.9 mg/dL (0.7-1.3) Estimated GFR (Cockcroft-Gault) 80.2 BUN/Creatinine Ratio 31 (6-20) H Glucose Level 220 mg/dL (70-99) H Calcium Level 8.6 mg/dL (8.5-10.1) Total Bilirubin 0.4 mg/dL (0.2-1.0) Aspartate Amino Transferase (AST) 58 U/L (15-37) H Alanine Aminotransferase (ALT) 84 U/L (16-63) H Alkaline Phosphatase 72 U/L (46-116) Total Protein 6.7 g/dL (6.4-8.2) Albumin 2.2 g/dL (3.4-5.0) L Albumin/Globulin Ratio 0.5 (1.0-1.7) L Test 08/12/21 17:21 Glucose (Fingerstick) 106 mg/dL (70-99) H Current Medications: Meds: Laboratory Tests Test 08/12/21 07:23 08/12/21 10:50 08/12/21 11:05 08/12/21 11:47 Glucose (Fingerstick) 136 mg/dL 216 mg/dL White Blood Count 10.6 x10^3/uL Red Blood Count 3.78 x10^6/uL Hemoglobin 11.6 g/dL Hematocrit 36.1 % Mean Corpuscular Volume 95 fL Mean Corpuscular Hemoglobin 31 pg Mean Corpuscular Hemoglobin Concent 32 g/dL Red Cell Distribution Width 13.6 % Platelet Count 325 x10^3/uL Neutrophils (%) (Auto) 75 % Lymphocytes (%) (Auto) 17 % Monocytes (%) (Auto) 7 % Eosinophils (%) (Auto) 1 % Basophils (%) (Auto) 0 % Neutrophils # (Auto) 8.0 x10^3uL Lymphocytes # (Auto) 1.7 x10^3/uL Monocytes # (Auto) 0.7 x10^3/uL Eosinophils # (Auto) 0.1 x10^3/uL Basophils # (Auto) 0.0 x10^3/uL Sodium Level 136 mmol/L Potassium Level 4.2 mmol/L Chloride Level 103 mmol/L Carbon Dioxide Level 24 mmol/L Anion Gap 9 Blood Urea Nitrogen 28 mg/dL Creatinine 0.9 mg/dL Estimated GFR (Cockcroft-Gault) 80.2 BUN/Creatinine Ratio 31 Glucose Level 220 mg/dL Calcium Level 8.6 mg/dL Total Bilirubin 0.4 mg/dL Aspartate Amino Transf (AST/SGOT) 58 U/L Alanine Aminotransferase (ALT/SGPT) 84 U/L Alkaline Phosphatase 72 U/L Total Protein 6.7 g/dL Albumin 2.2 g/dL Albumin/Globulin Ratio 0.5 Test 08/12/21 17:21 Glucose (Fingerstick) 106 mg/dL Current Medications Medications (Trade) Dose Ordered Sig/Joyce Route PRN Reason Start Time Stop Time Status Last Admin Dose Admin Acetaminophen (Tylenol) 650 mg PRN Q4HRS PRN PO pain or fever 08/07/21 18:45 08/11/21 12:18 Albuterol Sulfate (Ventolin) 2.5 mg PRN Q6HRS PRN NEB SHORTNESS OF AIR 08/07/21 18:45 08/07/21 19:47 DC Amlodipine Besylate (Norvasc) 5 mg DAILY PO 08/08/21 09:00 08/12/21 08:59 Vitamin D (Vitamin D3) 5,000 unit WEEKLY PO 08/14/21 09:00 Donepezil HCl (Aricept) 5 mg HS PO 08/07/21 21:00 08/08/21 18:37 DC 08/07/21 20:18 Melatonin (Melatonin) 6 mg QHS PO 08/07/21 21:00 08/08/21 18:37 DC 08/07/21 20:18 Non-Formulary Medication (Budesonide/ Formoterol Fumarate (Symbicort 160-4.5 Mcg Inhaler)) 2 puff BID IH 08/07/21 21:00 08/07/21 19:24 DC Calcium/Vitamin D (Oscal D 500mg/ 200uts) 1 tab DAILY PO 08/08/21 09:00 08/12/21 08:59 Non-Formulary Medication (Tiotropium [place] (Spiriva)) 1 cap DAILY IH 08/08/21 09:00 08/07/21 19:24 DC Coenzyme Q10 (Coenzyme Q10) 50 mg DAILY PO 08/08/21 09:00 08/12/21 08:59 Folic Acid (Folic Acid) 1 mg DAILY PO 08/08/21 09:00 08/12/21 08:59 Acetaminophen (Tylenol) 650 mg PRN Q6HRS PRN PO MILD PAIN / TEMP > 100.3'F 08/07/21 18:45 08/07/21 18:51 DC Multi-Ingredient Ointment (Analgesic [place]) 1 niles PRN QID PRN TP MUSCLE PAIN 08/07/21 18:45 Al Hydroxide/Mg Hydroxide (Mylanta Plus Xs) 15 ml PRN AFTMEALHC PRN PO DYSPEPSIA 08/07/21 18:45 Magnesium Hydroxide (Milk Of Magnesia) 2,400 mg PRN QHS PRN PO CONSTIPATION 08/07/21 18:45 08/12/21 19:59 Influenza Virus Vaccine Quadrival (Flulaval Quad [id number] Syringe) 0.5 ml ONCE ONCE VAX IM 08/08/21 09:00 08/08/21 09:01 DC 08/08/21 10:45 Budesonide (Pulmicort) 0.5 mg RTBID NEB 08/07/21 20:00 08/07/21 19:48 DC Albuterol/ Ipratropium (Duoneb) 3 ml RTQID NEB 08/07/21 20:00 08/07/21 19:49 DC Albuterol/ Ipratropium (Combivent Respimat 20-100 Mcg) 1 puff PRN Q6HRS PRN INH SHORTNESS OF BREATH 08/07/21 20:00 Fluticasone Furoate (ARNUITY 100mcg ELLIPTA) 1 puff BID INH 08/07/21 21:00 08/12/21 19:58 Insulin Human Lispro (HumaLOG) 0-5 UNITS TIDWMEALS SQ 08/08/21 17:00 08/12/21 12:29 Dextrose (Dextrose 50%-Water Syringe) 12.5 gm PRN Q15MIN PRN IV SEE COMMENTS 08/08/21 17:00 Donepezil HCl (Aricept) 10 mg HS PO 08/08/21 21:00 08/09/21 11:16 DC 08/08/21 20:18 Melatonin (Melatonin) 3 mg QHS PO 08/08/21 21:00 08/12/21 19:59 Rivastigmine (Exelon) 1 patch DAILY TD 08/09/21 09:00 08/11/21 23:50 DC 08/11/21 08:14 Rivastigmine (Exelon) 1 patch DAILY TD 08/12/21 09:00 08/14/21 23:50 08/12/21 09:06 Rivastigmine (Exelon 13.3mg) 1 patch DAILY TD 08/15/21 09:00 Mirtazapine (Remeron) 7.5 mg QHS PO 08/08/21 21:00 08/12/21 19:59 Sertraline HCl (Zoloft) 25 mg DAILY PO 08/10/21 09:00 08/12/21 21:00 08/12/21 08:59 Sertraline HCl (Zoloft) 50 mg DAILY PO 08/13/21 09:00 Albuterol/ Ipratropium (Duoneb) 3 ml PRN QID PRN NEB WHEEZING 08/09/21 14:00 08/10/21 06:39 DC Cephalexin HCl (Keflex) 500 mg TID PO 08/09/21 21:00 08/16/21 21:00 08/12/21 20:00 Lactobacillus Rhamnosus (Culturelle) 1 cap BID PO 08/12/21 21:00 08/12/21 20:00 Current Medications Medications (Trade) Dose Ordered Sig/Joyce Route PRN Reason Start Time Stop Time Status Last Admin Dose Admin Rivastigmine (Exelon) 1 patch DAILY TD 08/12/21 09:00 08/14/21 23:50 08/12/21 09:06 Lactobacillus Rhamnosus (Culturelle) 1 cap BID PO 08/12/21 21:00 08/12/21 20:00 I have reviewed the current psychotropics carefully including drug interactions. Risk benefit ratio favors no change other than as noted in my dictated progress note. Diagnosis: Problems: (1) Impulse control disorder (2) Dementia of the Alzheimer's type with early onset with behavioral disturbance (3) Anxiety disorder, unspecified (4) Dementia, vascular, with depression (5) Dementia, vascular, with delusions (6) Dementia in Alzheimer's disease with depression (7) Dementia in Alzheimer's disease with delusions (8) Major neurocognitive disorder LES MORA MD Aug 12, 2021 20:39
[2021-08-13 06:10] VITALS: BP 147/75
[2021-08-13] MEDS: INSULIN LISPRO 300 UNITS/3 ML VIAL. SQ SCH ×3 (08:00→17:00)
[2021-08-13] MEDS: LACTOBACILLUS RHAMNOSUS GG 1 CAPSULE. PO SCH ×2 (09:02→20:12)
[2021-08-13] MEDS: CALCIUM CARB/VIT D3 500/200 TABLET PO SCH (09:02)
[2021-08-13] MEDS: UBIDECARENONE 50 MG CAPSULE. PO SCH (09:02)
[2021-08-13] MEDS: RIVASTIGMINE 9.5MG PATCH. TD SCH (09:02)
[2021-08-13] MEDS: CEPHALEXIN 250 MG CAPSULE PO SCH ×3 (09:02→20:12)
[2021-08-13] MEDS: SERTRALINE 50 MG TABLET. PO SCH (09:02)
[2021-08-13] MEDS: amLODIPine BESYLATE 5 MG TABLET PO SCH (09:02)
[2021-08-13] MEDS: FOLIC ACID 1 MG TABLET PO SCH (09:02)
[2021-08-13] MEDS: FLUTICASONE FUROATE 100mcg/INH ELLIPTA INHALER. INH SCH ×2 (09:03→20:13)
[2021-08-13 15:48] VITALS: BP 128/75
[2021-08-13] MEDS: MIRTAZAPINE 7.5 MG TABLET. PO SCH (20:12)
[2021-08-13] MEDS: MELATONIN 3 MG TABLET PO SCH (20:12)
--- NOTE | 2021-08-13 20:59 | PDOC ---
Exam Note: Marvin Note: This note is a late entry for 08/11/2021 covers elements not covered in my initial note. Subjective: The patient was seen individually in the evening of 08/11/2021 with Yen FRAZIER, discussed and reviewed the chart. The patient slept 7-1/2 hours previous night. The patient is a little more social. I met with him at some length in his room. Fluids are being pushed since he is dehydrated and I discussed this with him. Review of Systems: No CV, , pulmonary, eye, ENT system symptoms on review. He is hard of hearing. Reliability poor. Mental Status Exam: The patient is oriented just to himself. Speech has some latency. Often response is monosyllabic. Abstraction fair. Computation impaired. Language function intact. Attention span short. Mood and affect withdrawn. Laboratory Data: Reviewed. Impression: Major depressive disorder. Anxiety disorder unspecified. Mild cognitive impairment. Plan: No change from initial note. Assessment: Vital Signs/I&O: Vital Signs Date Time Temp Pulse Resp B/P (MAP) Pulse Ox O2 Delivery O2 Flow Rate FiO2 08/13/21 15:48 98.5 71 16 128/75 (92) 97 08/13/21 06:10 Room Air I & O 08/12/21 08/12/21 08/13/21 15:00 23:00 07:00 Intake Total 720 ml 240 ml Balance 720 ml 240 ml Labs: Laboratory Tests Test 08/13/21 07:25 08/13/21 12:00 08/13/21 16:30 08/13/21 19:37 Glucose (Fingerstick) 118 mg/dL (70-99) H 124 mg/dL (70-99) H 155 mg/dL (70-99) H 179 mg/dL (70-99) H Current Medications: Meds: Laboratory Tests Test 08/13/21 07:25 08/13/21 12:00 08/13/21 16:30 08/13/21 19:37 Glucose (Fingerstick) 118 mg/dL 124 mg/dL 155 mg/dL 179 mg/dL Current Medications Medications (Trade) Dose Ordered Sig/Joyce Route PRN Reason Start Time Stop Time Status Last Admin Dose Admin Acetaminophen (Tylenol) 650 mg PRN Q4HRS PRN PO pain or fever 08/07/21 18:45 08/11/21 12:18 Albuterol Sulfate (Ventolin) 2.5 mg PRN Q6HRS PRN NEB SHORTNESS OF AIR 08/07/21 18:45 08/07/21 19:47 DC Amlodipine Besylate (Norvasc) 5 mg DAILY PO 08/08/21 09:00 08/13/21 09:02 Vitamin D (Vitamin D3) 5,000 unit WEEKLY PO 08/14/21 09:00 Donepezil HCl (Aricept) 5 mg HS PO 08/07/21 21:00 08/08/21 18:37 DC 08/07/21 20:18 Melatonin (Melatonin) 6 mg QHS PO 08/07/21 21:00 08/08/21 18:37 DC 08/07/21 20:18 Non-Formulary Medication (Budesonide/ Formoterol Fumarate (Symbicort 160-4.5 Mcg Inhaler)) 2 puff BID IH 08/07/21 21:00 08/07/21 19:24 DC Calcium/Vitamin D (Oscal D 500mg/ 200uts) 1 tab DAILY PO 08/08/21 09:00 08/13/21 09:02 Non-Formulary Medication (Tiotropium [place] (Spiriva)) 1 cap DAILY IH 08/08/21 09:00 08/07/21 19:24 DC Coenzyme Q10 (Coenzyme Q10) 50 mg DAILY PO 08/08/21 09:00 08/13/21 09:02 Folic Acid (Folic Acid) 1 mg DAILY PO 08/08/21 09:00 08/13/21 09:02 Acetaminophen (Tylenol) 650 mg PRN Q6HRS PRN PO MILD PAIN / TEMP > 100.3'F 08/07/21 18:45 08/07/21 18:51 DC Multi-Ingredient Ointment (Analgesic [place]) 1 niles PRN QID PRN TP MUSCLE PAIN 08/07/21 18:45 Al Hydroxide/Mg Hydroxide (Mylanta Plus Xs) 15 ml PRN AFTMEALHC PRN PO DYSPEPSIA 08/07/21 18:45 Magnesium Hydroxide (Milk Of Magnesia) 2,400 mg PRN QHS PRN PO CONSTIPATION 08/07/21 18:45 Influenza Virus Vaccine Quadrival (Flulaval Quad Syringe) 0.5 ml ONCE ONCE VAX IM 08/08/21 09:00 08/08/21 09:01 DC 08/08/21 10:45 Budesonide (Pulmicort) 0.5 mg RTBID NEB 08/07/21 20:00 08/07/21 19:48 DC Albuterol/ Ipratropium (Duoneb) 3 ml RTQID NEB 08/07/21 20:00 08/07/21 19:49 DC Albuterol/ Ipratropium (Combivent Respimat 20-100 Mcg) 1 puff PRN Q6HRS PRN INH SHORTNESS OF BREATH 08/07/21 20:00 Fluticasone Furoate (ARNUITY 100mcg ELLIPTA) 1 puff BID INH 08/07/21 21:00 08/13/21 20:13 Insulin Human Lispro (HumaLOG) 0-5 UNITS TIDWMEALS SQ 08/08/21 17:00 08/12/21 12:29 Dextrose (Dextrose 50%-Water Syringe) 12.5 gm PRN Q15MIN PRN IV SEE COMMENTS 08/08/21 17:00 Donepezil HCl (Aricept) 10 mg HS PO 08/08/21 21:00 08/09/21 11:16 DC 08/08/21 20:18 Melatonin (Melatonin) 3 mg QHS PO 08/08/21 21:00 08/13/21 20:12 Rivastigmine (Exelon) 1 patch DAILY TD 08/09/21 09:00 08/11/21 23:50 DC 08/11/21 08:14 Rivastigmine (Exelon) 1 patch DAILY TD 08/12/21 09:00 08/14/21 23:50 08/13/21 09:02 Rivastigmine (Exelon 13.3mg) 1 patch DAILY TD 08/15/21 09:00 Mirtazapine (Remeron) 7.5 mg QHS PO 08/08/21 21:00 08/13/21 20:12 Sertraline HCl (Zoloft) 25 mg DAILY PO 08/10/21 09:00 08/12/21 21:00 DC 08/12/21 08:59 Sertraline HCl (Zoloft) 50 mg DAILY PO 08/13/21 09:00 08/13/21 09:02 Albuterol/ Ipratropium (Duoneb) 3 ml PRN QID PRN NEB WHEEZING 08/09/21 14:00 08/10/21 06:39 DC Cephalexin HCl (Keflex) 500 mg TID PO 08/09/21 21:00 08/16/21 21:00 08/13/21 20:12 Lactobacillus Rhamnosus (Culturelle) 1 cap BID PO 08/12/21 21:00 08/13/21 20:12 Current Medications Medications (Trade) Dose Ordered Sig/Joyce Route PRN Reason Start Time Stop Time Status Last Admin Dose Admin Sertraline HCl (Zoloft) 50 mg DAILY PO 08/13/21 09:00 08/13/21 09:02 Lactobacillus Rhamnosus (Culturelle) 1 cap BID PO 08/12/21 21:00 08/13/21 20:12 I have reviewed the current psychotropics carefully including drug interactions. Risk benefit ratio favors no change other than as noted in my dictated progress note. Diagnosis: Problems: (1) Impulse control disorder (2) Dementia of the Alzheimer's type with early onset with behavioral disturbance (3) Anxiety disorder, unspecified (4) Dementia, vascular, with depression (5) Dementia, vascular, with delusions (6) Dementia in Alzheimer's disease with depression (7) Dementia in Alzheimer's disease with delusions (8) Major neurocognitive disorder LES MORA MD Aug 13, 2021 20:59
--- NOTE | 2021-08-13 21:19 | PDOC ---
Exam Note: Marvin Note: This note is a late entry for 08/12/2021 covers elements not covered in my initial note. Subjective: The patient was seen individually in the evening of 08/12/2021 with Lay FRAZIER, discussed and reviewed the chart. The patient slept 7 hours previous night. Patient remains somewhat dehydrated. Fluids are being pushed. He is little grumpy and irritable. He was watching the football game, [place] versus the [place] and states he always liked to watch the [place] play. Review of Systems: No CV, , pulmonary, eye, ENT system symptoms on review. Mental Status Exam: The patient is oriented just to himself. Speech coherent. Abstraction fair. Computation impaired. Language function intact. Attention span short. Mood and affect withdrawn. Laboratory Data: Reviewed. Impression: Major depressive disorder. Anxiety disorder unspecified. Mild cognitive impairment. Plan: No change from initial note. Assessment: Vital Signs/I&O: Vital Signs Date Time Temp Pulse Resp B/P (MAP) Pulse Ox O2 Delivery O2 Flow Rate FiO2 08/13/21 15:48 98.5 71 16 128/75 (92) 97 08/13/21 06:10 Room Air I & O 08/12/21 08/12/21 08/13/21 15:00 23:00 07:00 Intake Total 720 ml 240 ml Balance 720 ml 240 ml Labs: Laboratory Tests Test 08/13/21 07:25 08/13/21 12:00 08/13/21 16:30 08/13/21 19:37 Glucose (Fingerstick) 118 mg/dL (70-99) H 124 mg/dL (70-99) H 155 mg/dL (70-99) H 179 mg/dL (70-99) H Current Medications: Meds: Laboratory Tests Test 08/13/21 07:25 08/13/21 12:00 08/13/21 16:30 08/13/21 19:37 Glucose (Fingerstick) 118 mg/dL 124 mg/dL 155 mg/dL 179 mg/dL Current Medications Medications (Trade) Dose Ordered Sig/Joyce Route PRN Reason Start Time Stop Time Status Last Admin Dose Admin Acetaminophen (Tylenol) 650 mg PRN Q4HRS PRN PO pain or fever 08/07/21 18:45 08/11/21 12:18 Albuterol Sulfate (Ventolin) 2.5 mg PRN Q6HRS PRN NEB SHORTNESS OF AIR 08/07/21 18:45 08/07/21 19:47 DC Amlodipine Besylate (Norvasc) 5 mg DAILY PO 08/08/21 09:00 08/13/21 09:02 Vitamin D (Vitamin D3) 5,000 unit WEEKLY PO 08/14/21 09:00 Donepezil HCl (Aricept) 5 mg HS PO 08/07/21 21:00 08/08/21 18:37 DC 08/07/21 20:18 Melatonin (Melatonin) 6 mg QHS PO 08/07/21 21:00 08/08/21 18:37 DC 08/07/21 20:18 Non-Formulary Medication (Budesonide/ Formoterol Fumarate (Symbicort 160-4.5 Mcg Inhaler)) 2 puff BID IH 08/07/21 21:00 08/07/21 19:24 DC Calcium/Vitamin D (Oscal D 500mg/ 200uts) 1 tab DAILY PO 08/08/21 09:00 08/13/21 09:02 Non-Formulary Medication (Tiotropium [place] (Spiriva)) 1 cap DAILY IH 08/08/21 09:00 08/07/21 19:24 DC Coenzyme Q10 (Coenzyme Q10) 50 mg DAILY PO 08/08/21 09:00 08/13/21 09:02 Folic Acid (Folic Acid) 1 mg DAILY PO 08/08/21 09:00 08/13/21 09:02 Acetaminophen (Tylenol) 650 mg PRN Q6HRS PRN PO MILD PAIN / TEMP > 100.3'F 08/07/21 18:45 08/07/21 18:51 DC Multi-Ingredient Ointment (Analgesic [place]) 1 niles PRN QID PRN TP MUSCLE PAIN 08/07/21 18:45 Al Hydroxide/Mg Hydroxide (Mylanta Plus Xs) 15 ml PRN AFTMEALHC PRN PO DYSPEPSIA 08/07/21 18:45 Magnesium Hydroxide (Milk Of Magnesia) 2,400 mg PRN QHS PRN PO CONSTIPATION 08/07/21 18:45 Influenza Virus Vaccine Quadrival (Flulaval Quad Syringe) 0.5 ml ONCE ONCE VAX IM 08/08/21 09:00 08/08/21 09:01 DC 08/08/21 10:45 Budesonide (Pulmicort) 0.5 mg RTBID NEB 08/07/21 20:00 08/07/21 19:48 DC Albuterol/ Ipratropium (Duoneb) 3 ml RTQID NEB 08/07/21 20:00 08/07/21 19:49 DC Albuterol/ Ipratropium (Combivent Respimat 20-100 Mcg) 1 puff PRN Q6HRS PRN INH SHORTNESS OF BREATH 08/07/21 20:00 Fluticasone Furoate (ARNUITY 100mcg ELLIPTA) 1 puff BID INH 08/07/21 21:00 08/13/21 20:13 Insulin Human Lispro (HumaLOG) 0-5 UNITS TIDWMEALS SQ 08/08/21 17:00 08/12/21 12:29 Dextrose (Dextrose 50%-Water Syringe) 12.5 gm PRN Q15MIN PRN IV SEE COMMENTS 08/08/21 17:00 Donepezil HCl (Aricept) 10 mg HS PO 08/08/21 21:00 08/09/21 11:16 DC 08/08/21 20:18 Melatonin (Melatonin) 3 mg QHS PO 08/08/21 21:00 08/13/21 20:12 Rivastigmine (Exelon) 1 patch DAILY TD 08/09/21 09:00 08/11/21 23:50 DC 08/11/21 08:14 Rivastigmine (Exelon) 1 patch DAILY TD 08/12/21 09:00 08/14/21 23:50 08/13/21 09:02 Rivastigmine (Exelon 13.3mg) 1 patch DAILY TD 08/15/21 09:00 Mirtazapine (Remeron) 7.5 mg QHS PO 08/08/21 21:00 08/13/21 20:12 Sertraline HCl (Zoloft) 25 mg DAILY PO 08/10/21 09:00 08/12/21 21:00 DC 08/12/21 08:59 Sertraline HCl (Zoloft) 50 mg DAILY PO 08/13/21 09:00 08/13/21 09:02 Albuterol/ Ipratropium (Duoneb) 3 ml PRN QID PRN NEB WHEEZING 08/09/21 14:00 08/10/21 06:39 DC Cephalexin HCl (Keflex) 500 mg TID PO 08/09/21 21:00 08/16/21 21:00 08/13/21 20:12 Lactobacillus Rhamnosus (Culturelle) 1 cap BID PO 08/12/21 21:00 08/13/21 20:12 Current Medications Medications (Trade) Dose Ordered Sig/Joyce Route PRN Reason Start Time Stop Time Status Last Admin Dose Admin Sertraline HCl (Zoloft) 50 mg DAILY PO 08/13/21 09:00 08/13/21 09:02 I have reviewed the current psychotropics carefully including drug interactions. Risk benefit ratio favors no change other than as noted in my dictated progress note. Diagnosis: Problems: (1) Impulse control disorder (2) Dementia of the Alzheimer's type with early onset with behavioral disturbance (3) Anxiety disorder, unspecified (4) Dementia, vascular, with depression (5) Dementia, vascular, with delusions (6) Dementia in Alzheimer's disease with depression (7) Dementia in Alzheimer's disease with delusions (8) Major neurocognitive disorder LES MORA MD Aug 13, 2021 21:19
--- NOTE | 2021-08-13 21:20 | PDOC ---
Exam Note: Marvin Note: Please also refer to the separate dictated note~for this date of service dictated separately.~Patient seen individually. Discussed the patient with Nursing staff reviewed the chart.~Reviewed interim history and current functioning. Reviewed vital signs,~Labs/ Radiology~and current medications noted below. Continue current treatment with the changes noted in the dictated addendum note Assessment: Vital Signs/I&O: Vital Signs Date Time Temp Pulse Resp B/P (MAP) Pulse Ox O2 Delivery O2 Flow Rate FiO2 08/13/21 15:48 98.5 71 16 128/75 (92) 97 08/13/21 06:10 Room Air I & O 08/12/21 08/12/21 08/13/21 15:00 23:00 07:00 Intake Total 720 ml 240 ml Balance 720 ml 240 ml Labs: Laboratory Tests Test 08/13/21 07:25 08/13/21 12:00 08/13/21 16:30 08/13/21 19:37 Glucose (Fingerstick) 118 mg/dL (70-99) H 124 mg/dL (70-99) H 155 mg/dL (70-99) H 179 mg/dL (70-99) H Current Medications: Meds: Laboratory Tests Test 08/13/21 07:25 08/13/21 12:00 08/13/21 16:30 08/13/21 19:37 Glucose (Fingerstick) 118 mg/dL 124 mg/dL 155 mg/dL 179 mg/dL Current Medications Medications (Trade) Dose Ordered Sig/Joyce Route PRN Reason Start Time Stop Time Status Last Admin Dose Admin Acetaminophen (Tylenol) 650 mg PRN Q4HRS PRN PO pain or fever 08/07/21 18:45 08/11/21 12:18 Albuterol Sulfate (Ventolin) 2.5 mg PRN Q6HRS PRN NEB SHORTNESS OF AIR 08/07/21 18:45 08/07/21 19:47 DC Amlodipine Besylate (Norvasc) 5 mg DAILY PO 08/08/21 09:00 08/13/21 09:02 Vitamin D (Vitamin D3) 5,000 unit WEEKLY PO 08/14/21 09:00 Donepezil HCl (Aricept) 5 mg HS PO 08/07/21 21:00 08/08/21 18:37 DC 08/07/21 20:18 Melatonin (Melatonin) 6 mg QHS PO 08/07/21 21:00 08/08/21 18:37 DC 08/07/21 20:18 Non-Formulary Medication (Budesonide/ Formoterol Fumarate (Symbicort 160-4.5 Mcg Inhaler)) 2 puff BID IH 08/07/21 21:00 08/07/21 19:24 DC Calcium/Vitamin D (Oscal D 500mg/ 200uts) 1 tab DAILY PO 08/08/21 09:00 08/13/21 09:02 Non-Formulary Medication (Tiotropium [place] (Spiriva)) 1 cap DAILY IH 08/08/21 09:00 08/07/21 19:24 DC Coenzyme Q10 (Coenzyme Q10) 50 mg DAILY PO 08/08/21 09:00 08/13/21 09:02 Folic Acid (Folic Acid) 1 mg DAILY PO 08/08/21 09:00 08/13/21 09:02 Acetaminophen (Tylenol) 650 mg PRN Q6HRS PRN PO MILD PAIN / TEMP > 100.3'F 08/07/21 18:45 08/07/21 18:51 DC Multi-Ingredient Ointment (Analgesic [place]) 1 niles PRN QID PRN TP MUSCLE PAIN 08/07/21 18:45 Al Hydroxide/Mg Hydroxide (Mylanta Plus Xs) 15 ml PRN AFTMEALHC PRN PO DYSPEPSIA 08/07/21 18:45 Magnesium Hydroxide (Milk Of Magnesia) 2,400 mg PRN QHS PRN PO CONSTIPATION 08/07/21 18:45 Influenza Virus Vaccine Quadrival (Flulaval Quad [id number] Syringe) 0.5 ml ONCE ONCE VAX IM 08/08/21 09:00 08/08/21 09:01 DC 08/08/21 10:45 Budesonide (Pulmicort) 0.5 mg RTBID NEB 08/07/21 20:00 08/07/21 19:48 DC Albuterol/ Ipratropium (Duoneb) 3 ml RTQID NEB 08/07/21 20:00 08/07/21 19:49 DC Albuterol/ Ipratropium (Combivent Respimat 20-100 Mcg) 1 puff PRN Q6HRS PRN INH SHORTNESS OF BREATH 11/2/21 20:00 Fluticasone Furoate (ARNUITY 100mcg ELLIPTA) 1 puff BID INH 08/07/21 21:00 08/13/21 20:13 Insulin Human Lispro (HumaLOG) 0-5 UNITS TIDWMEALS SQ 08/08/21 17:00 08/12/21 12:29 Dextrose (Dextrose 50%-Water Syringe) 12.5 gm PRN Q15MIN PRN IV SEE COMMENTS 08/08/21 17:00 Donepezil HCl (Aricept) 10 mg HS PO 08/08/21 21:00 08/09/21 11:16 DC 08/08/21 20:18 Melatonin (Melatonin) 3 mg QHS PO 08/08/21 21:00 08/13/21 20:12 Rivastigmine (Exelon) 1 patch DAILY TD 08/09/21 09:00 08/11/21 23:50 DC 08/11/21 08:14 Rivastigmine (Exelon) 1 patch DAILY TD 08/12/21 09:00 08/14/21 23:50 08/13/21 09:02 Rivastigmine (Exelon 13.3mg) 1 patch DAILY TD 08/15/21 09:00 Mirtazapine (Remeron) 7.5 mg QHS PO 08/08/21 21:00 08/13/21 20:12 Sertraline HCl (Zoloft) 25 mg DAILY PO 08/10/21 09:00 08/12/21 21:00 DC 08/12/21 08:59 Sertraline HCl (Zoloft) 50 mg DAILY PO 08/13/21 09:00 08/13/21 09:02 Albuterol/ Ipratropium (Duoneb) 3 ml PRN QID PRN NEB WHEEZING 08/09/21 14:00 08/10/21 06:39 DC Cephalexin HCl (Keflex) 500 mg TID PO 08/09/21 21:00 08/16/21 21:00 08/13/21 20:12 Lactobacillus Rhamnosus (Culturelle) 1 cap BID PO 08/12/21 21:00 08/13/21 20:12 Current Medications Medications (Trade) Dose Ordered Sig/Joyce Route PRN Reason Start Time Stop Time Status Last Admin Dose Admin Sertraline HCl (Zoloft) 50 mg DAILY PO 08/13/21 09:00 08/13/21 09:02 I have reviewed the current psychotropics carefully including drug interactions. Risk benefit ratio favors no change other than as noted in my dictated progress note. Diagnosis: Problems: (1) Impulse control disorder (2) Dementia of the Alzheimer's type with early onset with behavioral disturbance (3) Anxiety disorder, unspecified (4) Dementia, vascular, with depression (5) Dementia, vascular, with delusions (6) Dementia in Alzheimer's disease with depression (7) Dementia in Alzheimer's disease with delusions (8) Major neurocognitive disorder LES MORA MD Aug 13, 2021 21:20
[2021-08-14 05:41] VITALS: BP 132/67
[2021-08-14 06:08] LABS: BASO # 0.1 x10^3/uL (0.0-0.2); BASO % 1 % (0-3); EOS # 0.1 x10^3/uL (0.0-0.7); EOS % 1 % (0-3); HEMATOCRIT 33.8 % (39.0-53.0); HEMOGLOBIN 11.1 g/dL (13.0-17.5); LYMPH # 2.2 x10^3/uL (1.0-4.8); LYMPH % 20 % (24-48); MEAN CORPUSCULAR HEMOGLOBIN 30 pg (25-35); MEAN CORPUSCULAR HGB CONC 33 g/dL (31-37); MEAN CORPUSCULAR VOLUME 93 fL (79-100); MONO # 0.8 x10^3/uL (0.0-1.1); MONO % 7 % (0-9); NEUT # 7.8 x10^3uL (1.8-7.7); NEUT % 71 % (31-73); PLATELET COUNT 328 x10^3/uL (140-400); RED BLOOD COUNT 3.66 x10^6/uL (4.30-5.70); RED CELL DISTRIBUTION WIDTH 13.7 % (11.5-14.5)
[2021-08-14 06:17] LABS: ALBUMIN 2.2 g/dL (3.4-5.0); ALBUMIN/GLOBULIN RATIO 0.5 (1.0-1.7); CALCIUM 8.3 mg/dL (8.5-10.1); CREATININE 0.9 mg/dL (0.7-1.3); GFR 80.2; POTASSIUM 3.9 mmol/L (3.5-5.1); TOTAL BILIRUBIN 0.3 mg/dL (0.2-1.0); TOTAL PROTEIN 6.8 g/dL (6.4-8.2)
[2021-08-14] MEDS: INSULIN LISPRO 300 UNITS/3 ML VIAL. SQ SCH ×3 (07:40→17:00)
[2021-08-14] MEDS: CHOLECALCIFEROL (VITAMIN D3) 1,000 UNIT TABLET PO SCH (08:26)
[2021-08-14] MEDS: UBIDECARENONE 50 MG CAPSULE. PO SCH (08:26)
[2021-08-14] MEDS: CEPHALEXIN 250 MG CAPSULE PO SCH ×3 (08:26→20:30)
[2021-08-14] MEDS: SERTRALINE 50 MG TABLET. PO SCH (08:26)
[2021-08-14] MEDS: CALCIUM CARB/VIT D3 500/200 TABLET PO SCH (08:26)
[2021-08-14] MEDS: FOLIC ACID 1 MG TABLET PO SCH (08:26)
[2021-08-14] MEDS: RIVASTIGMINE 9.5MG PATCH. TD SCH (08:27)
[2021-08-14] MEDS: amLODIPine BESYLATE 5 MG TABLET PO SCH (08:27)
[2021-08-14] MEDS: LACTOBACILLUS RHAMNOSUS GG 1 CAPSULE. PO SCH ×2 (08:27→20:30)
[2021-08-14] MEDS: FLUTICASONE FUROATE 100mcg/INH ELLIPTA INHALER. INH SCH ×2 (09:00→20:30)
[2021-08-14 15:25] VITALS: BP 112/55
[2021-08-14] MEDS: MELATONIN 3 MG TABLET PO SCH (20:30)
[2021-08-14] MEDS: MIRTAZAPINE 7.5 MG TABLET. PO SCH (20:30)
--- NOTE | 2021-08-14 20:50 | PDOC ---
Exam Note: Marvin Note: Please also refer to the separate dictated note~for this date of service dictated separately.~Patient seen individually. Discussed the patient with Nursing staff reviewed the chart.~Reviewed interim history and current functioning. Reviewed vital signs,~Labs/ Radiology~and current medications noted below. Continue current treatment with the changes noted in the dictated addendum note Assessment: Vital Signs/I&O: Vital Signs Date Time Temp Pulse Resp B/P (MAP) Pulse Ox O2 Delivery O2 Flow Rate FiO2 08/14/21 15:25 98.6 65 18 112/55 (74) 96 Room Air I & O 08/13/21 08/13/21 08/14/21 15:00 23:00 07:00 Intake Total 840 ml 480 ml Balance 840 ml 480 ml Labs: Laboratory Tests Test 08/14/21 05:54 08/14/21 07:33 08/14/21 11:35 08/14/21 16:54 White Blood Count 11.0 x10^3/uL (4.0-11.0) Red Blood Count 3.66 x10^6/uL (4.30-5.70) L Hemoglobin 11.1 g/dL (13.0-17.5) L Hematocrit 33.8 % (39.0-53.0) L Mean Corpuscular Volume 93 fL (79-100) Mean Corpuscular Hemoglobin 30 pg (25-35) Mean Corpuscular Hemoglobin Concent 33 g/dL (31-37) Red Cell Distribution Width 13.7 % (11.5-14.5) Platelet Count 328 x10^3/uL (140-400) Neutrophils (%) (Auto) 71 % (31-73) Lymphocytes (%) (Auto) 20 % (24-48) L Monocytes (%) (Auto) 7 % (0-9) Eosinophils (%) (Auto) 1 % (0-3) Basophils (%) (Auto) 1 % (0-3) Neutrophils # (Auto) 7.8 x10^3uL (1.8-7.7) H Lymphocytes # (Auto) 2.2 x10^3/uL (1.0-4.8) Monocytes # (Auto) 0.8 x10^3/uL (0.0-1.1) Eosinophils # (Auto) 0.1 x10^3/uL (0.0-0.7) Basophils # (Auto) 0.1 x10^3/uL (0.0-0.2) Sodium Level 137 mmol/L (136-145) Potassium Level 3.9 mmol/L (3.5-5.1) Chloride Level 103 mmol/L (98-107) Carbon Dioxide Level 27 mmol/L (21-32) Anion Gap 7 (6-14) Blood Urea Nitrogen 20 mg/dL (8-26) Creatinine 0.9 mg/dL (0.7-1.3) Estimated GFR (Cockcroft-Gault) 80.2 BUN/Creatinine Ratio 22 (6-20) H Glucose Level 127 mg/dL (70-99) H Calcium Level 8.3 mg/dL (8.5-10.1) L Total Bilirubin 0.3 mg/dL (0.2-1.0) Aspartate Amino Transferase (AST) 31 U/L (15-37) Alanine Aminotransferase (ALT) 61 U/L (16-63) Alkaline Phosphatase 75 U/L (46-116) Total Protein 6.8 g/dL (6.4-8.2) Albumin 2.2 g/dL (3.4-5.0) L Albumin/Globulin Ratio 0.5 (1.0-1.7) L Glucose (Fingerstick) 119 mg/dL (70-99) H 119 mg/dL (70-99) H 125 mg/dL (70-99) H Test 08/14/21 19:18 Glucose (Fingerstick) 213 mg/dL (70-99) H Current Medications: Meds: Laboratory Tests Test 08/14/21 05:54 08/14/21 07:33 08/14/21 11:35 08/14/21 16:54 White Blood Count 11.0 x10^3/uL Red Blood Count 3.66 x10^6/uL Hemoglobin 11.1 g/dL Hematocrit 33.8 % Mean Corpuscular Volume 93 fL Mean Corpuscular Hemoglobin 30 pg Mean Corpuscular Hemoglobin Concent 33 g/dL Red Cell Distribution Width 13.7 % Platelet Count 328 x10^3/uL Neutrophils (%) (Auto) 71 % Lymphocytes (%) (Auto) 20 % Monocytes (%) (Auto) 7 % Eosinophils (%) (Auto) 1 % Basophils (%) (Auto) 1 % Neutrophils # (Auto) 7.8 x10^3uL Lymphocytes # (Auto) 2.2 x10^3/uL Monocytes # (Auto) 0.8 x10^3/uL Eosinophils # (Auto) 0.1 x10^3/uL Basophils # (Auto) 0.1 x10^3/uL Sodium Level 137 mmol/L Potassium Level 3.9 mmol/L Chloride Level 103 mmol/L Carbon Dioxide Level 27 mmol/L Anion Gap 7 Blood Urea Nitrogen 20 mg/dL Creatinine 0.9 mg/dL Estimated GFR (Cockcroft-Gault) 80.2 BUN/Creatinine Ratio 22 Glucose Level 127 mg/dL Calcium Level 8.3 mg/dL Total Bilirubin 0.3 mg/dL Aspartate Amino Transf (AST/SGOT) 31 U/L Alanine Aminotransferase (ALT/SGPT) 61 U/L Alkaline Phosphatase 75 U/L Total Protein 6.8 g/dL Albumin 2.2 g/dL Albumin/Globulin Ratio 0.5 Glucose (Fingerstick) 119 mg/dL 119 mg/dL 125 mg/dL Test 08/14/21 19:18 Glucose (Fingerstick) 213 mg/dL Current Medications Medications (Trade) Dose Ordered Sig/Joyce Route PRN Reason Start Time Stop Time Status Last Admin Dose Admin Acetaminophen (Tylenol) 650 mg PRN Q4HRS PRN PO pain or fever 08/07/21 18:45 08/11/21 12:18 Albuterol Sulfate (Ventolin) 2.5 mg PRN Q6HRS PRN NEB SHORTNESS OF AIR 08/07/21 18:45 08/07/21 19:47 DC Amlodipine Besylate (Norvasc) 5 mg DAILY PO 08/08/21 09:00 08/14/21 08:27 Vitamin D (Vitamin D3) 5,000 unit WEEKLY PO 08/14/21 09:00 08/14/21 08:26 Donepezil HCl (Aricept) 5 mg HS PO 08/07/21 21:00 08/08/21 18:37 DC 08/07/21 20:18 Melatonin (Melatonin) 6 mg QHS PO 08/07/21 21:00 08/08/21 18:37 DC 08/07/21 20:18 Non-Formulary Medication (Budesonide/ Formoterol Fumarate (Symbicort 160-4.5 Mcg Inhaler)) 2 puff BID IH 08/07/21 21:00 08/07/21 19:24 DC Calcium/Vitamin D (Oscal D 500mg/ 200uts) 1 tab DAILY PO 08/08/21 09:00 08/14/21 08:26 Non-Formulary Medication (Tiotropium [place] (Spiriva)) 1 cap DAILY IH 08/08/21 09:00 08/07/21 19:24 DC Coenzyme Q10 (Coenzyme Q10) 50 mg DAILY PO 08/08/21 09:00 08/14/21 08:26 Folic Acid (Folic Acid) 1 mg DAILY PO 08/08/21 09:00 08/14/21 08:26 Acetaminophen (Tylenol) 650 mg PRN Q6HRS PRN PO MILD PAIN / TEMP > 100.3'F 08/07/21 18:45 08/07/21 18:51 DC Multi-Ingredient Ointment (Analgesic [place]) 1 niles PRN QID PRN TP MUSCLE PAIN 08/07/21 18:45 Al Hydroxide/Mg Hydroxide (Mylanta Plus Xs) 15 ml PRN AFTMEALHC PRN PO DYSPEPSIA 08/07/21 18:45 Magnesium Hydroxide (Milk Of Magnesia) 2,400 mg PRN QHS PRN PO CONSTIPATION 08/07/21 18:45 Influenza Virus Vaccine Quadrival (Flulaval Quad [id number] Syringe) 0.5 ml ONCE ONCE VAX IM 08/08/21 09:00 08/08/21 09:01 DC 08/08/21 10:45 Budesonide (Pulmicort) 0.5 mg RTBID NEB 08/07/21 20:00 08/07/21 19:48 DC Albuterol/ Ipratropium (Duoneb) 3 ml RTQID NEB 08/07/21 20:00 08/07/21 19:49 DC Albuterol/ Ipratropium (Combivent Respimat 20-100 Mcg) 1 puff PRN Q6HRS PRN INH SHORTNESS OF BREATH 08/07/21 20:00 Fluticasone Furoate (ARNUITY 100mcg ELLIPTA) 1 puff BID INH 08/07/21 21:00 08/14/21 20:30 Insulin Human Lispro (HumaLOG) 0-5 UNITS TIDWMEALS SQ 08/08/21 17:00 08/12/21 12:29 Dextrose (Dextrose 50%-Water Syringe) 12.5 gm PRN Q15MIN PRN IV SEE COMMENTS 08/08/21 17:00 Donepezil HCl (Aricept) 10 mg HS PO 08/08/21 21:00 08/09/21 11:16 DC 08/08/21 20:18 Melatonin (Melatonin) 3 mg QHS PO 08/08/21 21:00 08/14/21 20:30 Rivastigmine (Exelon) 1 patch DAILY TD 08/09/21 09:00 08/11/21 23:50 DC 08/11/21 08:14 Rivastigmine (Exelon) 1 patch DAILY TD 08/12/21 09:00 08/14/21 23:50 08/14/21 08:27 Rivastigmine (Exelon 13.3mg) 1 patch DAILY TD 08/15/21 09:00 Mirtazapine (Remeron) 7.5 mg QHS PO 08/08/21 21:00 08/14/21 20:30 Sertraline HCl (Zoloft) 25 mg DAILY PO 08/10/21 09:00 08/12/21 21:00 DC 08/12/21 08:59 Sertraline HCl (Zoloft) 50 mg DAILY PO 08/13/21 09:00 08/14/21 08:26 Albuterol/ Ipratropium (Duoneb) 3 ml PRN QID PRN NEB WHEEZING 08/09/21 14:00 08/10/21 06:39 DC Cephalexin HCl (Keflex) 500 mg TID PO 08/09/21 21:00 08/16/21 21:00 08/14/21 20:30 Lactobacillus Rhamnosus (Culturelle) 1 cap BID PO 08/12/21 21:00 08/14/21 20:30 Current Medications Medications (Trade) Dose Ordered Sig/Joyce Route PRN Reason Start Time Stop Time Status Last Admin Dose Admin Vitamin D (Vitamin D3) 5,000 unit WEEKLY PO 08/14/21 09:00 08/14/21 08:26 I have reviewed the current psychotropics carefully including drug interactions. Risk benefit ratio favors no change other than as noted in my dictated progress note. Diagnosis: Problems: (1) Impulse control disorder (2) Dementia of the Alzheimer's type with early onset with behavioral disturbance (3) Anxiety disorder, unspecified (4) Dementia, vascular, with depression (5) Dementia, vascular, with delusions (6) Dementia in Alzheimer's disease with depression (7) Dementia in Alzheimer's disease with delusions (8) Major neurocognitive disorder LES MORA MD Aug 14, 2021 20:50
[2021-08-15 06:10] VITALS: BP 135/66
--- NOTE | 2021-08-15 07:15 | PDOC ---
Exam Note: Marvin Note: This note is a late entry for 08/13/2021 covers elements not covered in my initial note. Subjective: The patient was seen individually in the evening of 08/13/2021 with Vicki FRAZIER, discussed and reviewed the chart. The patient slept 7-1/4 hours previous night. Patient has been less irritable, making exit statements, wanting to go to [place] to the [employer] plant. Fluids are being pushed. We will check a metabolic profile on 08/14. I met with him in his room. Review of Systems: No CV, , pulmonary, eye, ENT system symptoms on review. Reliability poor. Mental Status Exam: The patient is oriented just to himself. Insight and judgment, recent and remote memory, attention and concentration, fund of knowledge is poor consistent with his diagnoses. Laboratory Data: Reviewed. 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 Anxiety disorder unspecified. Impulse control disorder. Plan: We will check a metabolic profile on 08/14. Assessment: Vital Signs/I&O: Vital Signs Date Time Temp Pulse Resp B/P (MAP) Pulse Ox O2 Delivery O2 Flow Rate FiO2 08/15/21 06:10 98.0 62 20 135/66 (89) 99 08/14/21 15:25 Room Air I & O 08/14/21 08/14/21 08/15/21 15:00 23:00 07:00 Intake Total 480 ml 480 ml Balance 480 ml 480 ml Labs: Laboratory Tests Test 08/14/21 07:33 08/14/21 11:35 08/14/21 16:54 08/14/21 19:18 Glucose (Fingerstick) 119 mg/dL (70-99) H 119 mg/dL (70-99) H 125 mg/dL (70-99) H 213 mg/dL (70-99) H Current Medications: Meds: Laboratory Tests Test 08/14/21 07:33 08/14/21 11:35 08/14/21 16:54 08/14/21 19:18 Glucose (Fingerstick) 119 mg/dL 119 mg/dL 125 mg/dL 213 mg/dL Current Medications Medications (Trade) Dose Ordered Sig/Joyce Route PRN Reason Start Time Stop Time Status Last Admin Dose Admin Acetaminophen (Tylenol) 650 mg PRN Q4HRS PRN PO pain or fever 08/07/21 18:45 08/11/21 12:18 Albuterol Sulfate (Ventolin) 2.5 mg PRN Q6HRS PRN NEB SHORTNESS OF AIR 08/07/21 18:45 08/07/21 19:47 DC Amlodipine Besylate (Norvasc) 5 mg DAILY PO 08/08/21 09:00 08/14/21 08:27 Vitamin D (Vitamin D3) 5,000 unit WEEKLY PO 08/14/21 09:00 08/14/21 08:26 Donepezil HCl (Aricept) 5 mg HS PO 08/07/21 21:00 08/08/21 18:37 DC 08/07/21 20:18 Melatonin (Melatonin) 6 mg QHS PO 08/07/21 21:00 08/08/21 18:37 DC 08/07/21 20:18 Non-Formulary Medication (Budesonide/ Formoterol Fumarate (Symbicort 160-4.5 Mcg Inhaler)) 2 puff BID IH 08/07/21 21:00 08/07/21 19:24 DC Calcium/Vitamin D (Oscal D 500mg/ 200uts) 1 tab DAILY PO 08/08/21 09:00 08/14/21 08:26 Non-Formulary Medication (Tiotropium [place] (Spiriva)) 1 cap DAILY IH 08/08/21 09:00 08/07/21 19:24 DC Coenzyme Q10 (Coenzyme Q10) 50 mg DAILY PO 08/08/21 09:00 08/14/21 08:26 Folic Acid (Folic Acid) 1 mg DAILY PO 08/08/21 09:00 08/14/21 08:26 Acetaminophen (Tylenol) 650 mg PRN Q6HRS PRN PO MILD PAIN / TEMP > 100.3'F 08/07/21 18:45 08/07/21 18:51 DC Multi-Ingredient Ointment (Analgesic [place]) 1 niles PRN QID PRN TP MUSCLE PAIN 08/07/21 18:45 Al Hydroxide/Mg Hydroxide (Mylanta Plus Xs) 15 ml PRN AFTMEALHC PRN PO DYSPEPSIA 08/07/21 18:45 Magnesium Hydroxide (Milk Of Magnesia) 2,400 mg PRN QHS PRN PO CONSTIPATION 08/07/21 18:45 Influenza Virus Vaccine Quadrival (Flulaval Quad [id number] Syringe) 0.5 ml ONCE ONCE VAX IM 08/08/21 09:00 08/08/21 09:01 DC 08/08/21 10:45 Budesonide (Pulmicort) 0.5 mg RTBID NEB 08/07/21 20:00 08/07/21 19:48 DC Albuterol/ Ipratropium (Duoneb) 3 ml RTQID NEB 08/07/21 20:00 08/07/21 19:49 DC Albuterol/ Ipratropium (Combivent Respimat 20-100 Mcg) 1 puff PRN Q6HRS PRN INH SHORTNESS OF BREATH 08/07/21 20:00 Fluticasone Furoate (ARNUITY 100mcg ELLIPTA) 1 puff BID INH 08/07/21 21:00 08/14/21 20:30 Insulin Human Lispro (HumaLOG) 0-5 UNITS TIDWMEALS SQ 08/08/21 17:00 08/12/21 12:29 Dextrose (Dextrose 50%-Water Syringe) 12.5 gm PRN Q15MIN PRN IV SEE COMMENTS 08/08/21 17:00 Donepezil HCl (Aricept) 10 mg HS PO 08/08/21 21:00 08/09/21 11:16 DC 08/08/21 20:18 Melatonin (Melatonin) 3 mg QHS PO 08/08/21 21:00 08/14/21 20:30 Rivastigmine (Exelon) 1 patch DAILY TD 08/09/21 09:00 08/11/21 23:50 DC 08/11/21 08:14 Rivastigmine (Exelon) 1 patch DAILY TD 08/12/21 09:00 08/14/21 23:51 DC 08/14/21 08:27 Rivastigmine (Exelon 13.3mg) 1 patch DAILY TD 08/15/21 09:00 Mirtazapine (Remeron) 7.5 mg QHS PO 08/08/21 21:00 08/14/21 20:30 Sertraline HCl (Zoloft) 25 mg DAILY PO 08/10/21 09:00 08/12/21 21:00 DC 08/12/21 08:59 Sertraline HCl (Zoloft) 50 mg DAILY PO 08/13/21 09:00 08/14/21 08:26 Albuterol/ Ipratropium (Duoneb) 3 ml PRN QID PRN NEB WHEEZING 08/09/21 14:00 08/10/21 06:39 DC Cephalexin HCl (Keflex) 500 mg TID PO 08/09/21 21:00 08/16/21 21:00 08/14/21 20:30 Lactobacillus Rhamnosus (Culturelle) 1 cap BID PO 08/12/21 21:00 08/14/21 20:30 Current Medications Medications (Trade) Dose Ordered Sig/Joyce Route PRN Reason Start Time Stop Time Status Last Admin Dose Admin Vitamin D (Vitamin D3) 5,000 unit WEEKLY PO 08/14/21 09:00 08/14/21 08:26 I have reviewed the current psychotropics carefully including drug interactions. Risk benefit ratio favors no change other than as noted in my dictated progress note. Diagnosis: Problems: (1) Impulse control disorder (2) Dementia of the Alzheimer's type with early onset with behavioral disturbance (3) Anxiety disorder, unspecified (4) Dementia, vascular, with depression (5) Dementia, vascular, with delusions (6) Dementia in Alzheimer's disease with depression (7) Dementia in Alzheimer's disease with delusions (8) Major neurocognitive disorder LES MOAR MD Aug 15, 2021 07:15
--- NOTE | 2021-08-15 07:31 | PDOC ---
Exam Note: Marvin Note: This note is a late entry for 08/14/2021 covers elements not covered in my initial note. Subjective: The patient was seen individually in the evening of 08/14/2021 with Solange FRAZIER, discussed and reviewed the chart. The patient slept 5-1/4 hours previous night. 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 Araujo. We will check his labs today. In fact labs are stable including electrolytes. Review of Systems: Positive for discomfort in his hands. No CV, , pulmonary, eye, ENT system symptoms on review. Reliability poor. Mental Status Exam: The patient is oriented just to himself. Speech coherent. Abstraction fair. Computation impaired. Language function intact. Attention span short. Mood and affect withdrawn. Laboratory Data: Reviewed. 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 Anxiety disorder unspecified. Impulse control disorder. Plan: No change from initial note. Assessment: Vital Signs/I&O: Vital Signs Date Time Temp Pulse Resp B/P (MAP) Pulse Ox O2 Delivery O2 Flow Rate FiO2 08/15/21 06:10 98.0 62 20 135/66 (89) 99 08/14/21 15:25 Room Air I & O 08/14/21 08/14/21 08/15/21 15:00 23:00 07:00 Intake Total 480 ml 480 ml Balance 480 ml 480 ml Labs: Laboratory Tests Test 08/14/21 07:33 08/14/21 11:35 08/14/21 16:54 08/14/21 19:18 Glucose (Fingerstick) 119 mg/dL (70-99) H 119 mg/dL (70-99) H 125 mg/dL (70-99) H 213 mg/dL (70-99) H Current Medications: Meds: Laboratory Tests Test 08/14/21 07:33 08/14/21 11:35 08/14/21 16:54 08/14/21 19:18 Glucose (Fingerstick) 119 mg/dL 119 mg/dL 125 mg/dL 213 mg/dL Current Medications Medications (Trade) Dose Ordered Sig/Joyce Route PRN Reason Start Time Stop Time Status Last Admin Dose Admin Acetaminophen (Tylenol) 650 mg PRN Q4HRS PRN PO pain or fever 08/07/21 18:45 08/11/21 12:18 Albuterol Sulfate (Ventolin) 2.5 mg PRN Q6HRS PRN NEB SHORTNESS OF AIR 08/07/21 18:45 08/07/21 19:47 DC Amlodipine Besylate (Norvasc) 5 mg DAILY PO 08/08/21 09:00 08/14/21 08:27 Vitamin D (Vitamin D3) 5,000 unit WEEKLY PO 08/14/21 09:00 08/14/21 08:26 Donepezil HCl (Aricept) 5 mg HS PO 08/07/21 21:00 08/08/21 18:37 DC 08/07/21 20:18 Melatonin (Melatonin) 6 mg QHS PO 08/07/21 21:00 08/08/21 18:37 DC 08/07/21 20:18 Non-Formulary Medication (Budesonide/ Formoterol Fumarate (Symbicort 160-4.5 Mcg Inhaler)) 2 puff BID IH 08/07/21 21:00 08/07/21 19:24 DC Calcium/Vitamin D (Oscal D 500mg/ 200uts) 1 tab DAILY PO 08/08/21 09:00 08/14/21 08:26 Non-Formulary Medication (Tiotropium [place] (Spiriva)) 1 cap DAILY IH 08/08/21 09:00 08/07/21 19:24 DC Coenzyme Q10 (Coenzyme Q10) 50 mg DAILY PO 08/08/21 09:00 08/14/21 08:26 Folic Acid (Folic Acid) 1 mg DAILY PO 08/08/21 09:00 08/14/21 08:26 Acetaminophen (Tylenol) 650 mg PRN Q6HRS PRN PO MILD PAIN / TEMP > 100.3'F 08/07/21 18:45 08/07/21 18:51 DC Multi-Ingredient Ointment (Analgesic [place]) 1 niles PRN QID PRN TP MUSCLE PAIN 08/07/21 18:45 Al Hydroxide/Mg Hydroxide (Mylanta Plus Xs) 15 ml PRN AFTMEALHC PRN PO DYSPEPSIA 08/07/21 18:45 Magnesium Hydroxide (Milk Of Magnesia) 2,400 mg PRN QHS PRN PO CONSTIPATION 08/07/21 18:45 Influenza Virus Vaccine Quadrival (Flulaval Quad Syringe) 0.5 ml ONCE ONCE VAX IM 08/08/21 09:00 08/08/21 09:01 DC 08/08/21 10:45 Budesonide (Pulmicort) 0.5 mg RTBID NEB 08/07/21 20:00 08/07/21 19:48 DC Albuterol/ Ipratropium (Duoneb) 3 ml RTQID NEB 08/07/21 20:00 08/07/21 19:49 DC Albuterol/ Ipratropium (Combivent Respimat 20-100 Mcg) 1 puff PRN Q6HRS PRN INH SHORTNESS OF BREATH 08/07/21 20:00 Fluticasone Furoate (ARNUITY 100mcg ELLIPTA) 1 puff BID INH 08/07/21 21:00 08/14/21 20:30 Insulin Human Lispro (HumaLOG) 0-5 UNITS TIDWMEALS SQ 08/08/21 17:00 08/12/21 12:29 Dextrose (Dextrose 50%-Water Syringe) 12.5 gm PRN Q15MIN PRN IV SEE COMMENTS 08/08/21 17:00 Donepezil HCl (Aricept) 10 mg HS PO 08/08/21 21:00 08/09/21 11:16 DC 08/08/21 20:18 Melatonin (Melatonin) 3 mg QHS PO 08/08/21 21:00 08/14/21 20:30 Rivastigmine (Exelon) 1 patch DAILY TD 08/09/21 09:00 08/11/21 23:50 DC 08/11/21 08:14 Rivastigmine (Exelon) 1 patch DAILY TD 08/12/21 09:00 08/14/21 23:51 DC 08/14/21 08:27 Rivastigmine (Exelon 13.3mg) 1 patch DAILY TD 08/15/21 09:00 Mirtazapine (Remeron) 7.5 mg QHS PO 08/08/21 21:00 08/14/21 20:30 Sertraline HCl (Zoloft) 25 mg DAILY PO 08/10/21 09:00 08/12/21 21:00 DC 08/12/21 08:59 Sertraline HCl (Zoloft) 50 mg DAILY PO 08/13/21 09:00 08/14/21 08:26 Albuterol/ Ipratropium (Duoneb) 3 ml PRN QID PRN NEB WHEEZING 08/09/21 14:00 08/10/21 06:39 DC Cephalexin HCl (Keflex) 500 mg TID PO 08/09/21 21:00 08/16/21 21:00 08/14/21 20:30 Lactobacillus Rhamnosus (Culturelle) 1 cap BID PO 08/12/21 21:00 08/14/21 20:30 Current Medications Medications (Trade) Dose Ordered Sig/Joyce Route PRN Reason Start Time Stop Time Status Last Admin Dose Admin Vitamin D (Vitamin D3) 5,000 unit WEEKLY PO 08/14/21 09:00 08/14/21 08:26 I have reviewed the current psychotropics carefully including drug interactions. Risk benefit ratio favors no change other than as noted in my dictated progress note. Diagnosis: Problems: (1) Impulse control disorder (2) Dementia of the Alzheimer's type with early onset with behavioral disturbance (3) Anxiety disorder, unspecified (4) Dementia, vascular, with depression (5) Dementia, vascular, with delusions (6) Dementia in Alzheimer's disease with depression (7) Dementia in Alzheimer's disease with delusions (8) Major neurocognitive disorder LES MORA MD Aug 15, 2021 07:30
[2021-08-15] MEDS: amLODIPine BESYLATE 5 MG TABLET PO SCH (09:26)
[2021-08-15] MEDS: SERTRALINE 50 MG TABLET. PO SCH (09:26)
[2021-08-15] MEDS: CALCIUM CARB/VIT D3 500/200 TABLET PO SCH (09:26)
[2021-08-15] MEDS: INSULIN LISPRO 300 UNITS/3 ML VIAL. SQ SCH ×3 (09:26→17:00)
[2021-08-15] MEDS: CEPHALEXIN 250 MG CAPSULE PO SCH ×3 (09:26→19:53)
[2021-08-15] MEDS: FOLIC ACID 1 MG TABLET PO SCH (09:26)
[2021-08-15] MEDS: LACTOBACILLUS RHAMNOSUS GG 1 CAPSULE. PO SCH ×2 (09:26→19:54)
[2021-08-15] MEDS: UBIDECARENONE 50 MG CAPSULE. PO SCH (09:26)
[2021-08-15] MEDS: FLUTICASONE FUROATE 100mcg/INH ELLIPTA INHALER. INH SCH ×2 (09:27→19:54)
[2021-08-15] MEDS: RIVASTIGMINE 13.3MG PATCH. TD SCH (09:33)
[2021-08-15 15:42] VITALS: BP 141/69
[2021-08-15] MEDS: MIRTAZAPINE 7.5 MG TABLET. PO SCH (19:53)
[2021-08-15] MEDS: MELATONIN 3 MG TABLET PO SCH (19:54)
--- NOTE | 2021-08-15 21:07 | PDOC ---
Exam Note: Marvin Note: Please also refer to the separate dictated note~for this date of service dictated separately.~Patient seen individually. Discussed the patient with Nursing staff reviewed the chart.~Reviewed interim history and current functioning. Reviewed vital signs,~Labs/ Radiology~and current medications noted below. Continue current treatment with the changes noted in the dictated addendum note Assessment: Vital Signs/I&O: Vital Signs Date Time Temp Pulse Resp B/P (MAP) Pulse Ox O2 Delivery O2 Flow Rate FiO2 08/15/21 15:42 98.6 76 18 141/69 (93) 97 08/14/21 15:25 Room Air I & O 08/14/21 08/14/21 08/15/21 15:00 23:00 07:00 Intake Total 480 ml 480 ml Balance 480 ml 480 ml Labs: Laboratory Tests Test 08/15/21 07:34 08/15/21 11:39 08/15/21 16:57 08/15/21 19:09 Glucose (Fingerstick) 129 mg/dL (70-99) H 123 mg/dL (70-99) H 131 mg/dL (70-99) H 168 mg/dL (70-99) H Current Medications: Meds: Laboratory Tests Test 08/15/21 07:34 08/15/21 11:39 08/15/21 16:57 08/15/21 19:09 Glucose (Fingerstick) 129 mg/dL 123 mg/dL 131 mg/dL 168 mg/dL Current Medications Medications (Trade) Dose Ordered Sig/Joyce Route PRN Reason Start Time Stop Time Status Last Admin Dose Admin Acetaminophen (Tylenol) 650 mg PRN Q4HRS PRN PO pain or fever 08/07/21 18:45 08/11/21 12:18 Albuterol Sulfate (Ventolin) 2.5 mg PRN Q6HRS PRN NEB SHORTNESS OF AIR 08/07/21 18:45 08/07/21 19:47 DC Amlodipine Besylate (Norvasc) 5 mg DAILY PO 08/08/21 09:00 08/15/21 09:26 Vitamin D (Vitamin D3) 5,000 unit WEEKLY PO 08/14/21 09:00 08/14/21 08:26 Donepezil HCl (Aricept) 5 mg HS PO 08/07/21 21:00 08/08/21 18:37 DC 08/07/21 20:18 Melatonin (Melatonin) 6 mg QHS PO 08/07/21 21:00 08/08/21 18:37 DC 08/07/21 20:18 Non-Formulary Medication (Budesonide/ Formoterol Fumarate (Symbicort 160-4.5 Mcg Inhaler)) 2 puff BID IH 08/07/21 21:00 08/07/21 19:24 DC Calcium/Vitamin D (Oscal D 500mg/ 200uts) 1 tab DAILY PO 08/08/21 09:00 08/15/21 09:26 Non-Formulary Medication (Tiotropium [place] (Spiriva)) 1 cap DAILY IH 08/08/21 09:00 08/07/21 19:24 DC Coenzyme Q10 (Coenzyme Q10) 50 mg DAILY PO 08/08/21 09:00 08/15/21 09:26 Folic Acid (Folic Acid) 1 mg DAILY PO 08/08/21 09:00 08/15/21 09:26 Acetaminophen (Tylenol) 650 mg PRN Q6HRS PRN PO MILD PAIN / TEMP > 100.3'F 08/07/21 18:45 08/07/21 18:51 DC Multi-Ingredient Ointment (Analgesic [place]) 1 niles PRN QID PRN TP MUSCLE PAIN 08/07/21 18:45 Al Hydroxide/Mg Hydroxide (Mylanta Plus Xs) 15 ml PRN AFTMEALHC PRN PO DYSPEPSIA 08/07/21 18:45 Magnesium Hydroxide (Milk Of Magnesia) 2,400 mg PRN QHS PRN PO CONSTIPATION 08/07/21 18:45 Influenza Virus Vaccine Quadrival (Flulaval Quad 2050-3507 Syringe) 0.5 ml ONCE ONCE VAX IM 08/08/21 09:00 08/08/21 09:01 DC 08/08/21 10:45 Budesonide (Pulmicort) 0.5 mg RTBID NEB 08/07/21 20:00 08/07/21 19:48 DC Albuterol/ Ipratropium (Duoneb) 3 ml RTQID NEB 08/07/21 20:00 08/07/21 19:49 DC Albuterol/ Ipratropium (Combivent Respimat 20-100 Mcg) 1 puff PRN Q6HRS PRN INH SHORTNESS OF BREATH 08/07/21 20:00 Fluticasone Furoate (ARNUITY 100mcg ELLIPTA) 1 puff BID INH 08/07/21 21:00 08/15/21 19:54 Insulin Human Lispro (HumaLOG) 0-5 UNITS TIDWMEALS SQ 08/08/21 17:00 08/12/21 12:29 Dextrose (Dextrose 50%-Water Syringe) 12.5 gm PRN Q15MIN PRN IV SEE COMMENTS 08/08/21 17:00 Donepezil HCl (Aricept) 10 mg HS PO 08/08/21 21:00 08/09/21 11:16 DC 08/08/21 20:18 Melatonin (Melatonin) 3 mg QHS PO 08/08/21 21:00 08/15/21 19:54 Rivastigmine (Exelon) 1 patch DAILY TD 08/09/21 09:00 08/11/21 23:50 DC 08/11/21 08:14 Rivastigmine (Exelon) 1 patch DAILY TD 08/12/21 09:00 08/14/21 23:51 DC 08/14/21 08:27 Rivastigmine (Exelon 13.3mg) 1 patch DAILY TD 08/15/21 09:00 08/15/21 09:33 Mirtazapine (Remeron) 7.5 mg QHS PO 08/08/21 21:00 08/15/21 19:53 Sertraline HCl (Zoloft) 25 mg DAILY PO 08/10/21 09:00 08/12/21 21:00 DC 08/12/21 08:59 Sertraline HCl (Zoloft) 50 mg DAILY PO 08/13/21 09:00 08/15/21 09:26 Albuterol/ Ipratropium (Duoneb) 3 ml PRN QID PRN NEB WHEEZING 08/09/21 14:00 08/10/21 06:39 DC Cephalexin HCl (Keflex) 500 mg TID PO 08/09/21 21:00 08/16/21 21:00 08/15/21 19:53 Lactobacillus Rhamnosus (Culturelle) 1 cap BID PO 08/12/21 21:00 08/15/21 19:54 Current Medications Medications (Trade) Dose Ordered Sig/Joyce Route PRN Reason Start Time Stop Time Status Last Admin Dose Admin Rivastigmine (Exelon 13.3mg) 1 patch DAILY TD 08/15/21 09:00 08/15/21 09:33 I have reviewed the current psychotropics carefully including drug interactions. Risk benefit ratio favors no change other than as noted in my dictated progress note. Diagnosis: Problems: (1) Impulse control disorder (2) Dementia of the Alzheimer's type with early onset with behavioral disturbance (3) Anxiety disorder, unspecified (4) Dementia, vascular, with depression (5) Dementia, vascular, with delusions (6) Dementia in Alzheimer's disease with depression (7) Dementia in Alzheimer's disease with delusions (8) Major neurocognitive disorder LES MORA MD Aug 15, 2021 21:07
[2021-08-16 06:24] VITALS: BP 148/75
--- NOTE | 2021-08-16 07:24 | PDOC ---
Exam Note: Marvin Note: This note is a late entry for 08/15/2021 covers elements not covered in my initial note. Subjective: The patient was seen individually in the evening of 08/15/2021 with Vicki FRAZIER, discussed and reviewed the chart. The patient slept 7 hours previous night. Overall the patient has been up and more interactive, still confused, drinking more oral fluids. Review of Systems: Hard of hearing. No CV, , pulmonary, eye system symptoms on review. Reliability poor. Mental Status Exam: The patient is oriented just to himself. Speech coherent. Abstraction fair. Computation impaired. Language function intact. Attention span short. Mood and affect withdrawn. Laboratory Data: Reviewed. Impression: Major neurocognitive disorder Alzheimer, vascular, with delusions, depression, behavioral disturbance. Anxiety disorder unspecified. Impulse control disorder unspecified. Plan: Continue to treat the cellulitis of his hands. Maintain psychotropics unchanged. Assessment: Vital Signs/I&O: Vital Signs Date Time Temp Pulse Resp B/P (MAP) Pulse Ox O2 Delivery O2 Flow Rate FiO2 08/16/21 06:24 97.2 68 20 148/75 (99) 96 08/14/21 15:25 Room Air I & O 08/15/21 08/15/21 08/16/21 15:00 23:00 07:00 Intake Total 1060 ml 480 ml Balance 1060 ml 480 ml Labs: Laboratory Tests Test 08/15/21 07:34 08/15/21 11:39 08/15/21 16:57 08/15/21 19:09 Glucose (Fingerstick) 129 mg/dL (70-99) H 123 mg/dL (70-99) H 131 mg/dL (70-99) H 168 mg/dL (70-99) H Current Medications: Meds: Laboratory Tests Test 08/15/21 07:34 08/15/21 11:39 08/15/21 16:57 08/15/21 19:09 Glucose (Fingerstick) 129 mg/dL 123 mg/dL 131 mg/dL 168 mg/dL Current Medications Medications (Trade) Dose Ordered Sig/Joyce Route PRN Reason Start Time Stop Time Status Last Admin Dose Admin Acetaminophen (Tylenol) 650 mg PRN Q4HRS PRN PO pain or fever 08/07/21 18:45 08/11/21 12:18 Albuterol Sulfate (Ventolin) 2.5 mg PRN Q6HRS PRN NEB SHORTNESS OF AIR 08/07/21 18:45 08/07/21 19:47 DC Amlodipine Besylate (Norvasc) 5 mg DAILY PO 08/08/21 09:00 08/15/21 09:26 Vitamin D (Vitamin D3) 5,000 unit WEEKLY PO 08/14/21 09:00 08/14/21 08:26 Donepezil HCl (Aricept) 5 mg HS PO 08/07/21 21:00 08/08/21 18:37 DC 08/07/21 20:18 Melatonin (Melatonin) 6 mg QHS PO 08/07/21 21:00 08/08/21 18:37 DC 08/07/21 20:18 Non-Formulary Medication (Budesonide/ Formoterol Fumarate (Symbicort 160-4.5 Mcg Inhaler)) 2 puff BID IH 08/07/21 21:00 08/07/21 19:24 DC Calcium/Vitamin D (Oscal D 500mg/ 200uts) 1 tab DAILY PO 08/08/21 09:00 08/15/21 09:26 Non-Formulary Medication (Tiotropium [place] (Spiriva)) 1 cap DAILY IH 08/08/21 09:00 08/07/21 19:24 DC Coenzyme Q10 (Coenzyme Q10) 50 mg DAILY PO 08/08/21 09:00 08/15/21 09:26 Folic Acid (Folic Acid) 1 mg DAILY PO 08/08/21 09:00 08/15/21 09:26 Acetaminophen (Tylenol) 650 mg PRN Q6HRS PRN PO MILD PAIN / TEMP > 100.3'F 08/07/21 18:45 08/07/21 18:51 DC Multi-Ingredient Ointment (Analgesic [place]) 1 niles PRN QID PRN TP MUSCLE PAIN 08/07/21 18:45 Al Hydroxide/Mg Hydroxide (Mylanta Plus Xs) 15 ml PRN AFTMEALHC PRN PO DYSPEPSIA 08/07/21 18:45 Magnesium Hydroxide (Milk Of Magnesia) 2,400 mg PRN QHS PRN PO CONSTIPATION 08/07/21 18:45 Influenza Virus Vaccine Quadrival (Flulaval Quad Syringe) 0.5 ml ONCE ONCE VAX IM 08/08/21 09:00 08/08/21 09:01 DC 08/08/21 10:45 Budesonide (Pulmicort) 0.5 mg RTBID NEB 08/07/21 20:00 08/07/21 19:48 DC Albuterol/ Ipratropium (Duoneb) 3 ml RTQID NEB 08/07/21 20:00 08/07/21 19:49 DC Albuterol/ Ipratropium (Combivent Respimat 20-100 Mcg) 1 puff PRN Q6HRS PRN INH SHORTNESS OF BREATH 08/07/21 20:00 Fluticasone Furoate (ARNUITY 100mcg ELLIPTA) 1 puff BID INH 08/07/21 21:00 08/15/21 19:54 Insulin Human Lispro (HumaLOG) 0-5 UNITS TIDWMEALS SQ 08/08/21 17:00 08/12/21 12:29 Dextrose (Dextrose 50%-Water Syringe) 12.5 gm PRN Q15MIN PRN IV SEE COMMENTS 08/08/21 17:00 Donepezil HCl (Aricept) 10 mg HS PO 08/08/21 21:00 08/09/21 11:16 DC 08/08/21 20:18 Melatonin (Melatonin) 3 mg QHS PO 08/08/21 21:00 08/15/21 19:54 Rivastigmine (Exelon) 1 patch DAILY TD 08/09/21 09:00 08/11/21 23:50 DC 08/11/21 08:14 Rivastigmine (Exelon) 1 patch DAILY TD 08/12/21 09:00 08/14/21 23:51 DC 08/14/21 08:27 Rivastigmine (Exelon 13.3mg) 1 patch DAILY TD 08/15/21 09:00 08/15/21 09:33 Mirtazapine (Remeron) 7.5 mg QHS PO 08/08/21 21:00 08/15/21 19:53 Sertraline HCl (Zoloft) 25 mg DAILY PO 08/10/21 09:00 08/12/21 21:00 DC 08/12/21 08:59 Sertraline HCl (Zoloft) 50 mg DAILY PO 08/13/21 09:00 08/15/21 09:26 Albuterol/ Ipratropium (Duoneb) 3 ml PRN QID PRN NEB WHEEZING 08/09/21 14:00 08/10/21 06:39 DC Cephalexin HCl (Keflex) 500 mg TID PO 08/09/21 21:00 08/16/21 21:00 08/15/21 19:53 Lactobacillus Rhamnosus (Culturelle) 1 cap BID PO 08/12/21 21:00 08/15/21 19:54 Current Medications Medications (Trade) Dose Ordered Sig/Joyce Route PRN Reason Start Time Stop Time Status Last Admin Dose Admin Rivastigmine (Exelon 13.3mg) 1 patch DAILY TD 08/15/21 09:00 08/15/21 09:33 I have reviewed the current psychotropics carefully including drug interactions. Risk benefit ratio favors no change other than as noted in my dictated progress note. Diagnosis: Problems: (1) Impulse control disorder (2) Dementia of the Alzheimer's type with early onset with behavioral disturbance (3) Anxiety disorder, unspecified (4) Dementia, vascular, with depression (5) Dementia, vascular, with delusions (6) Dementia in Alzheimer's disease with depression (7) Dementia in Alzheimer's disease with delusions (8) Major neurocognitive disorder LES MORA MD Aug 16, 2021 07:23
[2021-08-16] MEDS: INSULIN LISPRO 300 UNITS/3 ML VIAL. SQ SCH ×3 (08:00→17:00)
[2021-08-16] MEDS: CALCIUM CARB/VIT D3 500/200 TABLET PO SCH (09:00)
[2021-08-16] MEDS: SERTRALINE 50 MG TABLET. PO SCH (09:00)
[2021-08-16] MEDS: UBIDECARENONE 50 MG CAPSULE. PO SCH (09:00)
[2021-08-16] MEDS: FLUTICASONE FUROATE 100mcg/INH ELLIPTA INHALER. INH SCH ×2 (09:00→20:47)
[2021-08-16] MEDS: LACTOBACILLUS RHAMNOSUS GG 1 CAPSULE. PO SCH ×2 (09:00→20:47)
[2021-08-16] MEDS: RIVASTIGMINE 13.3MG PATCH. TD SCH (09:01)
[2021-08-16] MEDS: FOLIC ACID 1 MG TABLET PO SCH (09:01)
[2021-08-16] MEDS: amLODIPine BESYLATE 5 MG TABLET PO SCH (09:01)
[2021-08-16] MEDS: CEPHALEXIN 250 MG CAPSULE PO SCH ×3 (09:01→20:47)
[2021-08-16 16:16] VITALS: BP 149/74
[2021-08-16] MEDS: MELATONIN 3 MG TABLET PO SCH (20:47)
[2021-08-16] MEDS: MIRTAZAPINE 7.5 MG TABLET. PO SCH (20:47)
--- NOTE | 2021-08-16 21:07 | PDOC ---
Exam Note: Marvin Note: Please also refer to the separate dictated note~for this date of service dictated separately.~Patient seen individually. Discussed the patient with Nursing staff reviewed the chart.~Reviewed interim history and current functioning. Reviewed vital signs,~Labs/ Radiology~and current medications noted below. Continue current treatment with the changes noted in the dictated addendum note Assessment: Vital Signs/I&O: Vital Signs Date Time Temp Pulse Resp B/P (MAP) Pulse Ox O2 Delivery O2 Flow Rate FiO2 08/16/21 16:16 98.0 62 19 149/74 (99) 99 Room Air I & O 08/15/21 08/15/21 08/16/21 15:00 23:00 07:00 Intake Total 1060 ml 480 ml Balance 1060 ml 480 ml Labs: Laboratory Tests Test 08/16/21 07:44 08/16/21 11:54 08/16/21 16:59 08/16/21 19:13 Glucose (Fingerstick) 124 mg/dL (70-99) H 99 mg/dL (70-99) 96 mg/dL (70-99) 202 mg/dL (70-99) H Current Medications: Meds: Laboratory Tests Test 08/16/21 07:44 08/16/21 11:54 08/16/21 16:59 08/16/21 19:13 Glucose (Fingerstick) 124 mg/dL 99 mg/dL 96 mg/dL 202 mg/dL Current Medications Medications (Trade) Dose Ordered Sig/Joyce Route PRN Reason Start Time Stop Time Status Last Admin Dose Admin Acetaminophen (Tylenol) 650 mg PRN Q4HRS PRN PO pain or fever 08/07/21 18:45 08/11/21 12:18 Albuterol Sulfate (Ventolin) 2.5 mg PRN Q6HRS PRN NEB SHORTNESS OF AIR 08/07/21 18:45 08/07/21 19:47 DC Amlodipine Besylate (Norvasc) 5 mg DAILY PO 08/08/21 09:00 08/16/21 09:01 Vitamin D (Vitamin D3) 5,000 unit WEEKLY PO 08/14/21 09:00 08/14/21 08:26 Donepezil HCl (Aricept) 5 mg HS PO 08/07/21 21:00 08/08/21 18:37 DC 08/07/21 20:18 Melatonin (Melatonin) 6 mg QHS PO 08/07/21 21:00 08/08/21 18:37 DC 08/07/21 20:18 Non-Formulary Medication (Budesonide/ Formoterol Fumarate (Symbicort 160-4.5 Mcg Inhaler)) 2 puff BID IH 08/07/21 21:00 08/07/21 19:24 DC Calcium/Vitamin D (Oscal D 500mg/ 200uts) 1 tab DAILY PO 08/08/21 09:00 08/16/21 09:00 Non-Formulary Medication (Tiotropium [place] (Spiriva)) 1 cap DAILY IH 08/08/21 09:00 08/07/21 19:24 DC Coenzyme Q10 (Coenzyme Q10) 50 mg DAILY PO 08/08/21 09:00 08/16/21 09:00 Folic Acid (Folic Acid) 1 mg DAILY PO 08/08/21 09:00 08/16/21 09:01 Acetaminophen (Tylenol) 650 mg PRN Q6HRS PRN PO MILD PAIN / TEMP > 100.3'F 08/07/21 18:45 08/07/21 18:51 DC Multi-Ingredient Ointment (Analgesic [place]) 1 niles PRN QID PRN TP MUSCLE PAIN 08/07/21 18:45 Al Hydroxide/Mg Hydroxide (Mylanta Plus Xs) 15 ml PRN AFTMEALHC PRN PO DYSPEPSIA 08/07/21 18:45 Magnesium Hydroxide (Milk Of Magnesia) 2,400 mg PRN QHS PRN PO CONSTIPATION 08/07/21 18:45 Influenza Virus Vaccine Quadrival (Flulaval Quad 8700-5020 Syringe) 0.5 ml ONCE ONCE VAX IM 08/08/21 09:00 08/08/21 09:01 DC 08/08/21 10:45 Budesonide (Pulmicort) 0.5 mg RTBID NEB 08/07/21 20:00 08/07/21 19:48 DC Albuterol/ Ipratropium (Duoneb) 3 ml RTQID NEB 08/07/21 20:00 08/07/21 19:49 DC Albuterol/ Ipratropium (Combivent Respimat 20-100 Mcg) 1 puff PRN Q6HRS PRN INH SHORTNESS OF BREATH 11/2/21 20:00 Fluticasone Furoate (ARNUITY 100mcg ELLIPTA) 1 puff BID INH 08/07/21 21:00 08/16/21 20:47 Insulin Human Lispro (HumaLOG) 0-5 UNITS TIDWMEALS SQ 08/08/21 17:00 08/12/21 12:29 Dextrose (Dextrose 50%-Water Syringe) 12.5 gm PRN Q15MIN PRN IV SEE COMMENTS 08/08/21 17:00 Donepezil HCl (Aricept) 10 mg HS PO 08/08/21 21:00 08/09/21 11:16 DC 08/08/21 20:18 Melatonin (Melatonin) 3 mg QHS PO 08/08/21 21:00 08/16/21 20:47 Rivastigmine (Exelon) 1 patch DAILY TD 08/09/21 09:00 08/11/21 23:50 DC 08/11/21 08:14 Rivastigmine (Exelon) 1 patch DAILY TD 08/12/21 09:00 08/14/21 23:51 DC 08/14/21 08:27 Rivastigmine (Exelon 13.3mg) 1 patch DAILY TD 08/15/21 09:00 08/16/21 09:01 Mirtazapine (Remeron) 7.5 mg QHS PO 08/08/21 21:00 08/16/21 20:47 Sertraline HCl (Zoloft) 25 mg DAILY PO 08/10/21 09:00 08/12/21 21:00 DC 08/12/21 08:59 Sertraline HCl (Zoloft) 50 mg DAILY PO 08/13/21 09:00 08/16/21 13:04 DC 08/16/21 09:00 Albuterol/ Ipratropium (Duoneb) 3 ml PRN QID PRN NEB WHEEZING 08/09/21 14:00 08/10/21 06:39 DC Cephalexin HCl (Keflex) 500 mg TID PO 08/09/21 21:00 08/16/21 21:00 DC 08/16/21 20:47 Lactobacillus Rhamnosus (Culturelle) 1 cap BID PO 08/12/21 21:00 08/16/21 20:47 Sertraline HCl (Zoloft) 75 mg DAILY PO 08/17/21 09:00 I have reviewed the current psychotropics carefully including drug interactions. Risk benefit ratio favors no change other than as noted in my dictated progress note. Diagnosis: Problems: (1) Impulse control disorder (2) Dementia of the Alzheimer's type with early onset with behavioral disturbance (3) Anxiety disorder, unspecified (4) Dementia, vascular, with depression (5) Dementia, vascular, with delusions (6) Dementia in Alzheimer's disease with depression (7) Dementia in Alzheimer's disease with delusions (8) Major neurocognitive disorder LES MORA MD Aug 16, 2021 21:07
[2021-08-17 06:07] VITALS: BP 143/85
--- NOTE | 2021-08-17 07:32 | PDOC ---
Exam Note: Marvin Note: This note is a late entry for 08/16/2021 covers elements not covered in my initial note. Subjective: The patient was reviewed at treatment team meeting individually in the morning on 08/16/2021 with Evelyn Prado, Heather Fontanez, and Rebekah Onofre (social science research assistant), Jenny, activity therapy and Ruben RN, discussed and reviewed the chart. The patient slept 5-1/4 hours previous night. Average sleep 7-1/2 hours. Appetite 50% and is up for meals. When questioned by nursing staff, the patient knew he was in the hospital, knew it was though previous evening he seemed confused, looking for a place to hitchhike to [place]. His scheduled antibiotics for the hand cellulitis is to be discontinued tomorrow but by this evening we received information that culture was positive for MRSA and I will defer to Dr. Araujo/Dr. Leong. Review of Systems: No CV, , pulmonary, eye system symptoms on review. Reliability poor. Mental Status Exam: The patient is oriented just to himself. Speech coherent. Abstraction fair. Computation impaired. Language function intact. Attention span short. Mood and affect withdrawn. Laboratory Data: Reviewed. Impression: Major neurocognitive disorder Alzheimer, vascular, with delusions, depression, behavioral disturbance. Anxiety disorder unspecified. Impulse control disorder. Plan: Continue rest psychotropics unchanged. We will defer treatment of cellulitis to Dr. Leong/Dr. Araujo. Adjust as clinically indicated. After he has been on Zoloft 50 mg a day for 3 days, we will make it 75 mg a day. Assessment: Vital Signs/I&O: Vital Signs Date Time Temp Pulse Resp B/P (MAP) Pulse Ox O2 Delivery O2 Flow Rate FiO2 08/17/21 06:07 97.5 77 18 143/85 (104) 96 Room Air I & O 08/16/21 08/16/21 08/17/21 15:00 23:00 07:00 Intake Total 697 ml 370 ml Balance 697 ml 370 ml Labs: Laboratory Tests Test 08/16/21 07:44 08/16/21 11:54 08/16/21 16:59 08/16/21 19:13 Glucose (Fingerstick) 124 mg/dL (70-99) H 99 mg/dL (70-99) 96 mg/dL (70-99) 202 mg/dL (70-99) H Test 08/17/21 07:21 Glucose (Fingerstick) 121 mg/dL (70-99) H Current Medications: Meds: Laboratory Tests Test 08/16/21 07:44 08/16/21 11:54 08/16/21 16:59 08/16/21 19:13 Glucose (Fingerstick) 124 mg/dL 99 mg/dL 96 mg/dL 202 mg/dL Test 08/17/21 07:21 Glucose (Fingerstick) 121 mg/dL Current Medications Medications (Trade) Dose Ordered Sig/Joyce Route PRN Reason Start Time Stop Time Status Last Admin Dose Admin Acetaminophen (Tylenol) 650 mg PRN Q4HRS PRN PO pain or fever 08/07/21 18:45 08/11/21 12:18 Albuterol Sulfate (Ventolin) 2.5 mg PRN Q6HRS PRN NEB SHORTNESS OF AIR 08/07/21 18:45 08/07/21 19:47 DC Amlodipine Besylate (Norvasc) 5 mg DAILY PO 08/08/21 09:00 08/16/21 09:01 Vitamin D (Vitamin D3) 5,000 unit WEEKLY PO 08/14/21 09:00 08/14/21 08:26 Donepezil HCl (Aricept) 5 mg HS PO 08/07/21 21:00 08/08/21 18:37 DC 08/07/21 20:18 Melatonin (Melatonin) 6 mg QHS PO 08/07/21 21:00 08/08/21 18:37 DC 08/07/21 20:18 Non-Formulary Medication (Budesonide/ Formoterol Fumarate (Symbicort 160-4.5 Mcg Inhaler)) 2 puff BID IH 08/07/21 21:00 08/07/21 19:24 DC Calcium/Vitamin D (Oscal D 500mg/ 200uts) 1 tab DAILY PO 08/08/21 09:00 08/16/21 09:00 Non-Formulary Medication (Tiotropium [place] (Spiriva)) 1 cap DAILY IH 08/08/21 09:00 08/07/21 19:24 DC Coenzyme Q10 (Coenzyme Q10) 50 mg DAILY PO 08/08/21 09:00 08/16/21 09:00 Folic Acid (Folic Acid) 1 mg DAILY PO 08/08/21 09:00 08/16/21 09:01 Acetaminophen (Tylenol) 650 mg PRN Q6HRS PRN PO MILD PAIN / TEMP > 100.3'F 08/07/21 18:45 08/07/21 18:51 DC Multi-Ingredient Ointment (Analgesic [place]) 1 niles PRN QID PRN TP MUSCLE PAIN 08/07/21 18:45 Al Hydroxide/Mg Hydroxide (Mylanta Plus Xs) 15 ml PRN AFTMEALHC PRN PO DYSPEPSIA 08/07/21 18:45 Magnesium Hydroxide (Milk Of Magnesia) 2,400 mg PRN QHS PRN PO CONSTIPATION 08/07/21 18:45 Influenza Virus Vaccine Quadrival (Flulaval Quad [id number] Syringe) 0.5 ml ONCE ONCE VAX IM 08/08/21 09:00 08/08/21 09:01 DC 08/08/21 10:45 Budesonide (Pulmicort) 0.5 mg RTBID NEB 08/07/21 20:00 08/07/21 19:48 DC Albuterol/ Ipratropium (Duoneb) 3 ml RTQID NEB 08/07/21 20:00 08/07/21 19:49 DC Albuterol/ Ipratropium (Combivent Respimat 20-100 Mcg) 1 puff PRN Q6HRS PRN INH SHORTNESS OF BREATH 08/07/21 20:00 Fluticasone Furoate (ARNUITY 100mcg ELLIPTA) 1 puff BID INH 08/07/21 21:00 08/16/21 20:47 Insulin Human Lispro (HumaLOG) 0-5 UNITS TIDWMEALS SQ 08/08/21 17:00 08/12/21 12:29 Dextrose (Dextrose 50%-Water Syringe) 12.5 gm PRN Q15MIN PRN IV SEE COMMENTS 08/08/21 17:00 Donepezil HCl (Aricept) 10 mg HS PO 08/08/21 21:00 08/09/21 11:16 DC 08/08/21 20:18 Melatonin (Melatonin) 3 mg QHS PO 08/08/21 21:00 08/16/21 20:47 Rivastigmine (Exelon) 1 patch DAILY TD 08/09/21 09:00 08/11/21 23:50 DC 08/11/21 08:14 Rivastigmine (Exelon) 1 patch DAILY TD 08/12/21 09:00 08/14/21 23:51 DC 08/14/21 08:27 Rivastigmine (Exelon 13.3mg) 1 patch DAILY TD 08/15/21 09:00 08/16/21 09:01 Mirtazapine (Remeron) 7.5 mg QHS PO 08/08/21 21:00 08/16/21 20:47 Sertraline HCl (Zoloft) 25 mg DAILY PO 08/10/21 09:00 08/12/21 21:00 DC 08/12/21 08:59 Sertraline HCl (Zoloft) 50 mg DAILY PO 08/13/21 09:00 08/16/21 13:04 DC 08/16/21 09:00 Albuterol/ Ipratropium (Duoneb) 3 ml PRN QID PRN NEB WHEEZING 08/09/21 14:00 08/10/21 06:39 DC Cephalexin HCl (Keflex) 500 mg TID PO 08/09/21 21:00 08/16/21 21:00 DC 08/16/21 20:47 Lactobacillus Rhamnosus (Culturelle) 1 cap BID PO 08/12/21 21:00 08/16/21 20:47 Sertraline HCl (Zoloft) 75 mg DAILY PO 08/17/21 09:00 I have reviewed the current psychotropics carefully including drug interactions. Risk benefit ratio favors no change other than as noted in my dictated progress note. Diagnosis: Problems: (1) Impulse control disorder (2) Dementia of the Alzheimer's type with early onset with behavioral disturbance (3) Anxiety disorder, unspecified (4) Dementia, vascular, with depression (5) Dementia, vascular, with delusions (6) Dementia in Alzheimer's disease with depression (7) Dementia in Alzheimer's disease with delusions (8) Major neurocognitive disorder LES MORA MD Aug 17, 2021 07:32
[2021-08-17] MEDS: INSULIN LISPRO 300 UNITS/3 ML VIAL. SQ SCH (08:00)
[2021-08-17] MEDS: CALCIUM CARB/VIT D3 500/200 TABLET PO SCH (08:59)
[2021-08-17] MEDS: amLODIPine BESYLATE 5 MG TABLET PO SCH (08:59)
[2021-08-17] MEDS: SERTRALINE 50 MG TABLET. PO SCH (08:59)
[2021-08-17] MEDS: RIVASTIGMINE 13.3MG PATCH. TD SCH (08:59)
[2021-08-17] MEDS: LACTOBACILLUS RHAMNOSUS GG 1 CAPSULE. PO SCH ×2 (08:59→20:17)
[2021-08-17] MEDS: FOLIC ACID 1 MG TABLET PO SCH (08:59)
[2021-08-17] MEDS: UBIDECARENONE 50 MG CAPSULE. PO SCH (08:59)
[2021-08-17] MEDS: FLUTICASONE FUROATE 100mcg/INH ELLIPTA INHALER. INH SCH ×2 (09:00→20:16)
[2021-08-17] MEDS: SMZ/TMP 800/160MG TABLET. PO SCH ×2 (13:01→20:17)
[2021-08-17] MEDS: DOXYCYCLINE HYCLATE 100 MG TABLET PO SCH ×2 (13:01→20:17)
[2021-08-17 16:10] VITALS: BP 150/75
[2021-08-17] MEDS: metFORMIN 850 MG TABLET PO SCH (17:07)
[2021-08-17] MEDS: MIRTAZAPINE 7.5 MG TABLET. PO SCH (20:17)
[2021-08-17] MEDS: MELATONIN 3 MG TABLET PO SCH (20:17)
--- NOTE | 2021-08-17 21:10 | PDOC ---
Exam Note: Marvni Note: Please also refer to the separate dictated note~for this date of service dictated separately.~Patient seen individually. Discussed the patient with Nursing staff reviewed the chart.~Reviewed interim history and current functioning. Reviewed vital signs,~Labs/ Radiology~and current medications noted below. Continue current treatment with the changes noted in the dictated addendum note Assessment: Vital Signs/I&O: Vital Signs Date Time Temp Pulse Resp B/P (MAP) Pulse Ox O2 Delivery O2 Flow Rate FiO2 08/17/21 16:10 98.7 71 18 150/75 (100) 96 08/17/21 06:07 Room Air I & O 08/16/21 08/16/21 08/17/21 15:00 23:00 07:00 Intake Total 697 ml 370 ml Balance 697 ml 370 ml Labs: Laboratory Tests Test 08/17/21 07:21 Glucose (Fingerstick) 121 mg/dL (70-99) H Current Medications: Meds: Laboratory Tests Test 08/17/21 07:21 Glucose (Fingerstick) 121 mg/dL Current Medications Medications (Trade) Dose Ordered Sig/Joyce Route PRN Reason Start Time Stop Time Status Last Admin Dose Admin Acetaminophen (Tylenol) 650 mg PRN Q4HRS PRN PO pain or fever 08/07/21 18:45 08/11/21 12:18 Albuterol Sulfate (Ventolin) 2.5 mg PRN Q6HRS PRN NEB SHORTNESS OF AIR 08/07/21 18:45 08/07/21 19:47 DC Amlodipine Besylate (Norvasc) 5 mg DAILY PO 08/08/21 09:00 08/17/21 08:59 Vitamin D (Vitamin D3) 5,000 unit WEEKLY PO 08/14/21 09:00 08/14/21 08:26 Donepezil HCl (Aricept) 5 mg HS PO 08/07/21 21:00 08/08/21 18:37 DC 08/07/21 20:18 Melatonin (Melatonin) 6 mg QHS PO 08/07/21 21:00 08/08/21 18:37 DC 08/07/21 20:18 Non-Formulary Medication (Budesonide/ Formoterol Fumarate (Symbicort 160-4.5 Mcg Inhaler)) 2 puff BID IH 08/07/21 21:00 08/07/21 19:24 DC Calcium/Vitamin D (Oscal D 500mg/ 200uts) 1 tab DAILY PO 08/08/21 09:00 08/17/21 08:59 Non-Formulary Medication (Tiotropium [place] (Spiriva)) 1 cap DAILY IH 08/08/21 09:00 08/07/21 19:24 DC Coenzyme Q10 (Coenzyme Q10) 50 mg DAILY PO 08/08/21 09:00 08/17/21 08:59 Folic Acid (Folic Acid) 1 mg DAILY PO 08/08/21 09:00 08/17/21 08:59 Acetaminophen (Tylenol) 650 mg PRN Q6HRS PRN PO MILD PAIN / TEMP > 100.3'F 08/07/21 18:45 08/07/21 18:51 DC Multi-Ingredient Ointment (Analgesic [place]) 1 niles PRN QID PRN TP MUSCLE PAIN 08/07/21 18:45 Al Hydroxide/Mg Hydroxide (Mylanta Plus Xs) 15 ml PRN AFTMEALHC PRN PO DYSPEPSIA 08/07/21 18:45 Magnesium Hydroxide (Milk Of Magnesia) 2,400 mg PRN QHS PRN PO CONSTIPATION 08/07/21 18:45 Influenza Virus Vaccine Quadrival (Flulaval Quad [id number] Syringe) 0.5 ml ONCE ONCE VAX IM 08/08/21 09:00 08/08/21 09:01 DC 08/08/21 10:45 Budesonide (Pulmicort) 0.5 mg RTBID NEB 08/07/21 20:00 08/07/21 19:48 DC Albuterol/ Ipratropium (Duoneb) 3 ml RTQID NEB 08/07/21 20:00 08/07/21 19:49 DC Albuterol/ Ipratropium (Combivent Respimat 20-100 Mcg) 1 puff PRN Q6HRS PRN INH SHORTNESS OF BREATH 08/07/21 20:00 Fluticasone Furoate (ARNUITY 100mcg ELLIPTA) 1 puff BID INH 08/07/21 21:00 08/17/21 20:16 Insulin Human Lispro (HumaLOG) 0-5 UNITS TIDWMEALS SQ 08/08/21 17:00 08/17/21 11:28 DC 08/12/21 12:29 Dextrose (Dextrose 50%-Water Syringe) 12.5 gm PRN Q15MIN PRN IV SEE COMMENTS 08/08/21 17:00 Donepezil HCl (Aricept) 10 mg HS PO 08/08/21 21:00 08/09/21 11:16 DC 08/08/21 20:18 Melatonin (Melatonin) 3 mg QHS PO 08/08/21 21:00 08/17/21 20:17 Rivastigmine (Exelon) 1 patch DAILY TD 08/09/21 09:00 08/11/21 23:50 DC 08/11/21 08:14 Rivastigmine (Exelon) 1 patch DAILY TD 08/12/21 09:00 08/14/21 23:51 DC 08/14/21 08:27 Rivastigmine (Exelon 13.3mg) 1 patch DAILY TD 08/15/21 09:00 08/17/21 08:59 Mirtazapine (Remeron) 7.5 mg QHS PO 08/08/21 21:00 08/17/21 20:17 Sertraline HCl (Zoloft) 25 mg DAILY PO 08/10/21 09:00 08/12/21 21:00 DC 08/12/21 08:59 Sertraline HCl (Zoloft) 50 mg DAILY PO 08/13/21 09:00 08/16/21 13:04 DC 08/16/21 09:00 Albuterol/ Ipratropium (Duoneb) 3 ml PRN QID PRN NEB WHEEZING 08/09/21 14:00 08/10/21 06:39 DC Cephalexin HCl (Keflex) 500 mg TID PO 08/09/21 21:00 08/16/21 21:00 DC 08/16/21 20:47 Lactobacillus Rhamnosus (Culturelle) 1 cap BID PO 08/12/21 21:00 08/17/21 20:17 Sertraline HCl (Zoloft) 75 mg DAILY PO 08/17/21 09:00 08/17/21 08:59 Doxycycline Hyclate (Vibra-Tab) 100 mg BID PO 08/17/21 12:30 08/24/21 12:29 08/17/21 20:17 Trimethoprim/ Sulfamethoxazole (Bactrim Ds) 1 tab BID PO 08/17/21 12:00 08/24/21 11:59 08/17/21 20:17 Metformin HCl (Glucophage) 850 mg BIDWMEALS PO 08/17/21 17:00 08/17/21 17:07 Current Medications Medications (Trade) Dose Ordered Sig/Joyce Route PRN Reason Start Time Stop Time Status Last Admin Dose Admin Sertraline HCl (Zoloft) 75 mg DAILY PO 08/17/21 09:00 08/17/21 08:59 Doxycycline Hyclate (Vibra-Tab) 100 mg BID PO 08/17/21 12:30 08/24/21 12:29 08/17/21 20:17 Trimethoprim/ Sulfamethoxazole (Bactrim Ds) 1 tab BID PO 08/17/21 12:00 08/24/21 11:59 08/17/21 20:17 Metformin HCl (Glucophage) 850 mg BIDWMEALS PO 08/17/21 17:00 08/17/21 17:07 I have reviewed the current psychotropics carefully including drug interactions. Risk benefit ratio favors no change other than as noted in my dictated progress note. Diagnosis: Problems: (1) Impulse control disorder (2) Dementia of the Alzheimer's type with early onset with behavioral distu rbance (3) Anxiety disorder, unspecified (4) Dementia, vascular, with depression (5) Dementia, vascular, with delusions (6) Dementia in Alzheimer's disease with depression (7) Dementia in Alzheimer's disease with delusions (8) Major neurocognitive disorder LES MORA MD Aug 17, 2021 21:10
[2021-08-18 05:59] VITALS: BP 153/64
[2021-08-18] MEDS: UBIDECARENONE 50 MG CAPSULE. PO SCH (08:19)
[2021-08-18] MEDS: metFORMIN 850 MG TABLET PO SCH ×2 (08:19→16:53)
[2021-08-18] MEDS: amLODIPine BESYLATE 5 MG TABLET PO SCH (08:19)
[2021-08-18] MEDS: LACTOBACILLUS RHAMNOSUS GG 1 CAPSULE. PO SCH ×2 (08:20→20:54)
[2021-08-18] MEDS: CALCIUM CARB/VIT D3 500/200 TABLET PO SCH (08:20)
[2021-08-18] MEDS: DOXYCYCLINE HYCLATE 100 MG TABLET PO SCH ×2 (08:20→20:54)
[2021-08-18] MEDS: FOLIC ACID 1 MG TABLET PO SCH (08:20)
[2021-08-18] MEDS: SERTRALINE 50 MG TABLET. PO SCH (08:20)
[2021-08-18] MEDS: SMZ/TMP 800/160MG TABLET. PO SCH ×2 (08:20→20:54)
[2021-08-18] MEDS: FLUTICASONE FUROATE 100mcg/INH ELLIPTA INHALER. INH SCH ×2 (08:21→20:55)
[2021-08-18] MEDS: RIVASTIGMINE 13.3MG PATCH. TD SCH (08:21)
[2021-08-18 15:24] VITALS: BP 147/80
[2021-08-18] MEDS: MELATONIN 3 MG TABLET PO SCH (20:54)
[2021-08-18] MEDS: MIRTAZAPINE 7.5 MG TABLET. PO SCH (20:54)
--- NOTE | 2021-08-18 21:09 | PDOC ---
Exam Note: Marvin Note: Please also refer to the separate dictated note~for this date of service dictated separately.~Patient seen individually. Discussed the patient with Nursing staff reviewed the chart.~Reviewed interim history and current functioning. Reviewed vital signs,~Labs/ Radiology~and current medications noted below. Continue current treatment with the changes noted in the dictated addendum note Assessment: Vital Signs/I&O: Vital Signs Date Time Temp Pulse Resp B/P (MAP) Pulse Ox O2 Delivery O2 Flow Rate FiO2 08/18/21 15:24 98.0 80 17 147/80 (102) 96 Room Air I & O 08/17/21 08/17/21 08/18/21 15:00 23:00 07:00 Intake Total 787 ml 720 ml Balance 787 ml 720 ml Labs: Laboratory Tests Test 08/18/21 07:22 Glucose (Fingerstick) 182 mg/dL (70-99) H Current Medications: Meds: Laboratory Tests Test 08/18/21 07:22 Glucose (Fingerstick) 182 mg/dL Current Medications Medications (Trade) Dose Ordered Sig/Joyce Route PRN Reason Start Time Stop Time Status Last Admin Dose Admin Acetaminophen (Tylenol) 650 mg PRN Q4HRS PRN PO pain or fever 08/07/21 18:45 08/11/21 12:18 Albuterol Sulfate (Ventolin) 2.5 mg PRN Q6HRS PRN NEB SHORTNESS OF AIR 08/07/21 18:45 08/07/21 19:47 DC Amlodipine Besylate (Norvasc) 5 mg DAILY PO 08/08/21 09:00 08/18/21 08:19 Vitamin D (Vitamin D3) 5,000 unit WEEKLY PO 08/14/21 09:00 08/14/21 08:26 Donepezil HCl (Aricept) 5 mg HS PO 08/07/21 21:00 08/08/21 18:37 DC 08/07/21 20:18 Melatonin (Melatonin) 6 mg QHS PO 08/07/21 21:00 08/08/21 18:37 DC 08/07/21 20:18 Non-Formulary Medication (Budesonide/ Formoterol Fumarate (Symbicort 160-4.5 Mcg Inhaler)) 2 puff BID IH 08/07/21 21:00 08/07/21 19:24 DC Calcium/Vitamin D (Oscal D 500mg/ 200uts) 1 tab DAILY PO 08/08/21 09:00 08/18/21 08:20 Non-Formulary Medication (Tiotropium [place] (Spiriva)) 1 cap DAILY IH 08/08/21 09:00 08/07/21 19:24 DC Coenzyme Q10 (Coenzyme Q10) 50 mg DAILY PO 08/08/21 09:00 08/18/21 08:19 Folic Acid (Folic Acid) 1 mg DAILY PO 08/08/21 09:00 08/18/21 08:20 Acetaminophen (Tylenol) 650 mg PRN Q6HRS PRN PO MILD PAIN / TEMP > 100.3'F 08/07/21 18:45 08/07/21 18:51 DC Multi-Ingredient Ointment (Analgesic [place]) 1 niles PRN QID PRN TP MUSCLE PAIN 08/07/21 18:45 Al Hydroxide/Mg Hydroxide (Mylanta Plus Xs) 15 ml PRN AFTMEALHC PRN PO DYSPEPSIA 08/07/21 18:45 Magnesium Hydroxide (Milk Of Magnesia) 2,400 mg PRN QHS PRN PO CONSTIPATION 08/07/21 18:45 Influenza Virus Vaccine Quadrival (Flulaval Quad [id number] Syringe) 0.5 ml ONCE ONCE VAX IM 08/08/21 09:00 08/08/21 09:01 DC 08/08/21 10:45 Budesonide (Pulmicort) 0.5 mg RTBID NEB 08/07/21 20:00 08/07/21 19:48 DC Albuterol/ Ipratropium (Duoneb) 3 ml RTQID NEB 08/07/21 20:00 08/07/21 19:49 DC Albuterol/ Ipratropium (Combivent Respimat 20-100 Mcg) 1 puff PRN Q6HRS PRN INH SHORTNESS OF BREATH 08/07/21 20:00 Fluticasone Furoate (ARNUITY 100mcg ELLIPTA) 1 puff BID INH 08/07/21 21:00 08/18/21 20:55 Insulin Human Lispro (HumaLOG) 0-5 UNITS TIDWMEALS SQ 08/08/21 17:00 08/17/21 11:28 DC 08/12/21 12:29 Dextrose (Dextrose 50%-Water Syringe) 12.5 gm PRN Q15MIN PRN IV SEE COMMENTS 08/08/21 17:00 Donepezil HCl (Aricept) 10 mg HS PO 08/08/21 21:00 08/09/21 11:16 DC 08/08/21 20:18 Melatonin (Melatonin) 3 mg QHS PO 08/08/21 21:00 08/18/21 20:54 Rivastigmine (Exelon) 1 patch DAILY TD 08/09/21 09:00 08/11/21 23:50 DC 08/11/21 08:14 Rivastigmine (Exelon) 1 patch DAILY TD 08/12/21 09:00 08/14/21 23:51 DC 08/14/21 08:27 Rivastigmine (Exelon 13.3mg) 1 patch DAILY TD 08/15/21 09:00 08/18/21 08:21 Mirtazapine (Remeron) 7.5 mg QHS PO 08/08/21 21:00 08/18/21 20:54 Sertraline HCl (Zoloft) 25 mg DAILY PO 08/10/21 09:00 08/12/21 21:00 DC 08/12/21 08:59 Sertraline HCl (Zoloft) 50 mg DAILY PO 08/13/21 09:00 08/16/21 13:04 DC 08/16/21 09:00 Albuterol/ Ipratropium (Duoneb) 3 ml PRN QID PRN NEB WHEEZING 08/09/21 14:00 08/10/21 06:39 DC Cephalexin HCl (Keflex) 500 mg TID PO 08/09/21 21:00 08/16/21 21:00 DC 08/16/21 20:47 Lactobacillus Rhamnosus (Culturelle) 1 cap BID PO 08/12/21 21:00 08/18/21 20:54 Sertraline HCl (Zoloft) 75 mg DAILY PO 08/17/21 09:00 08/18/21 08:20 Doxycycline Hyclate (Vibra-Tab) 100 mg BID PO 08/17/21 12:30 08/24/21 12:29 08/18/21 20:54 Trimethoprim/ Sulfamethoxazole (Bactrim Ds) 1 tab BID PO 08/17/21 12:00 08/24/21 11:59 08/18/21 20:54 Metformin HCl (Glucophage) 850 mg BIDWMEALS PO 08/17/21 17:00 08/18/21 16:53 I have reviewed the current psychotropics carefully including drug interactions. Risk benefit ratio favors no change other than as noted in my dictated progress note. Diagnosis: Problems: (1) Impulse control disorder (2) Dementia of the Alzheimer's type with early onset with behavioral disturbance (3) Anxiety disorder, unspecified (4) Dementia, vascular, with depression (5) Dementia, vascular, with delusions (6) Dementia in Alzheimer's disease with depression (7) Dementia in Alzheimer's disease with delusions (8) Major neurocognitive disorder LES MORA MD Aug 18, 2021 21:09
[2021-08-19 06:02] VITALS: BP 134/83
--- NOTE | 2021-08-19 07:23 | PDOC ---
Exam Note: Marvin Note: This note is a late entry for 08/17/2021 covers elements not covered in my initial note. Subjective: The patient was seen individually in the evening of 08/17/2021 with Ruben FRAZIER, discussed and reviewed the chart. The patient slept 6-1/4 hours previous night. Overall previous night per nursing report, the patient was somewhat delusional, confused stating he had to go to hitchhike to get back home. He remembered the name of the nursing staff this morning, does better in the morning with cognition than in the evening. Review of Systems: No CV, , pulmonary, eye system symptoms on review. He is slightly hard of hearing. Mental Status Exam: The patient is oriented to himself. Insight and judgment, recent and remote memory, attention and concentration, fund of knowledge is poor consistent with his diagnoses. Laboratory Data: Reviewed. Impression: Major neurocognitive disorder Alzheimer, vascular, with delusions, depression, behavioral disturbance. Anxiety disorder unspecified. Impulse control disorder. Plan: Continue rest psychotropics unchanged. Assessment: Vital Signs/I&O: Vital Signs Date Time Temp Pulse Resp B/P (MAP) Pulse Ox O2 Delivery O2 Flow Rate FiO2 08/19/21 06:02 97.8 89 20 134/83 (100) 97 Room Air I & O 0 08/18/21 08/18/21 08/19/21 15:00 23:00 07:00 Intake Total 840 ml 480 ml Balance 840 ml 480 ml Current Medications: Meds: Current Medications Medications (Trade) Dose Ordered Sig/Joyce Route PRN Reason Start Time Stop Time Status Last Admin Dose Admin Acetaminophen (Tylenol) 650 mg PRN Q4HRS PRN PO pain or fever 08/07/21 18:45 08/11/21 12:18 Albuterol Sulfate (Ventolin) 2.5 mg PRN Q6HRS PRN NEB SHORTNESS OF AIR 08/07/21 18:45 08/07/21 19:47 DC Amlodipine Besylate (Norvasc) 5 mg DAILY PO 08/08/21 09:00 08/18/21 08:19 Vitamin D (Vitamin D3) 5,000 unit WEEKLY PO 08/14/21 09:00 08/14/21 08:26 Donepezil HCl (Aricept) 5 mg HS PO 08/07/21 21:00 08/08/21 18:37 DC 08/07/21 20:18 Melatonin (Melatonin) 6 mg QHS PO 08/07/21 21:00 08/08/21 18:37 DC 08/07/21 20:18 Non-Formulary Medication (Budesonide/ Formoterol Fumarate (Symbicort 160-4.5 Mcg Inhaler)) 2 puff BID IH 08/07/21 21:00 08/07/21 19:24 DC Calcium/Vitamin D (Oscal D 500mg/ 200uts) 1 tab DAILY PO 08/08/21 09:00 08/18/21 08:20 Non-Formulary Medication (Tiotropium [place] (Spiriva)) 1 cap DAILY IH 08/08/21 09:00 08/07/21 19:24 DC Coenzyme Q10 (Coenzyme Q10) 50 mg DAILY PO 08/08/21 09:00 08/18/21 08:19 Folic Acid (Folic Acid) 1 mg DAILY PO 08/08/21 09:00 08/18/21 08:20 Acetaminophen (Tylenol) 650 mg PRN Q6HRS PRN PO MILD PAIN / TEMP > 100.3'F 08/07/21 18:45 08/07/21 18:51 DC Multi-Ingredient Ointment (Analgesic [place]) 1 niles PRN QID PRN TP MUSCLE PAIN 08/07/21 18:45 Al Hydroxide/Mg Hydroxide (Mylanta Plus Xs) 15 ml PRN AFTMEALHC PRN PO DYSPEPSIA 08/07/21 18:45 Magnesium Hydroxide (Milk Of Magnesia) 2,400 mg PRN QHS PRN PO CONSTIPATION 08/07/21 18:45 Influenza Virus Vaccine Quadrival (Flulaval Quad [id number] Syringe) 0.5 ml ONCE ONCE VAX IM 08/08/21 09:00 08/08/21 09:01 DC 08/08/21 10:45 Budesonide (Pulmicort) 0.5 mg RTBID NEB 08/07/21 20:00 08/07/21 19:48 DC Albuterol/ Ipratropium (Duoneb) 3 ml RTQID NEB 08/07/21 20:00 08/07/21 19:49 DC Albuterol/ Ipratropium (Combivent Respimat 20-100 Mcg) 1 puff PRN Q6HRS PRN INH SHORTNESS OF BREATH 08/07/21 20:00 Fluticasone Furoate (ARNUITY 100mcg ELLIPTA) 1 puff BID INH 08/07/21 21:00 08/18/21 20:55 Insulin Human Lispro (HumaLOG) 0-5 UNITS TIDWMEALS SQ 08/08/21 17:00 08/17/21 11:28 DC 08/12/21 12:29 Dextrose (Dextrose 50%-Water Syringe) 12.5 gm PRN Q15MIN PRN IV SEE COMMENTS 08/08/21 17:00 Donepezil HCl (Aricept) 10 mg HS PO 08/08/21 21:00 08/09/21 11:16 DC 08/08/21 20:18 Melatonin (Melatonin) 3 mg QHS PO 08/08/21 21:00 08/18/21 20:54 Rivastigmine (Exelon) 1 patch DAILY TD 08/09/21 09:00 08/11/21 23:50 DC 08/11/21 08:14 Rivastigmine (Exelon) 1 patch DAILY TD 08/12/21 09:00 08/14/21 23:51 DC 08/14/21 08:27 Rivastigmine (Exelon 13.3mg) 1 patch DAILY TD 08/15/21 09:00 08/18/21 08:21 Mirtazapine (Remeron) 7.5 mg QHS PO 08/08/21 21:00 08/18/21 20:54 Sertraline HCl (Zoloft) 25 mg DAILY PO 08/10/21 09:00 08/12/21 21:00 DC 08/12/21 08:59 Sertraline HCl (Zoloft) 50 mg DAILY PO 08/13/21 09:00 08/16/21 13:04 DC 08/16/21 09:00 Albuterol/ Ipratropium (Duoneb) 3 ml PRN QID PRN NEB WHEEZING 08/09/21 14:00 08/10/21 06:39 DC Cephalexin HCl (Keflex) 500 mg TID PO 08/09/21 21:00 08/16/21 21:00 DC 08/16/21 20:47 Lactobacillus Rhamnosus (Culturelle) 1 cap BID PO 08/12/21 21:00 08/18/21 20:54 Sertraline HCl (Zoloft) 75 mg DAILY PO 08/17/21 09:00 08/18/21 08:20 Doxycycline Hyclate (Vibra-Tab) 100 mg BID PO 08/17/21 12:30 08/24/21 12:29 08/18/21 20:54 Trimethoprim/ Sulfamethoxazole (Bactrim Ds) 1 tab BID PO 08/17/21 12:00 08/24/21 11:59 08/18/21 20:54 Metformin HCl (Glucophage) 850 mg BIDWMEALS PO 08/17/21 17:00 08/18/21 16:53 I have reviewed the current psychotropics carefully including drug interactions. Risk benefit ratio favors no change other than as noted in my dictated progress note. Diagnosis: Problems: (1) Impulse control disorder (2) Dementia of the Alzheimer's type with early onset with behavioral disturbance (3) Anxiety disorder, unspecified (4) Dementia, vascular, with depression (5) Dementia, vascular, with delusions (6) Dementia in Alzheimer's disease with depression (7) Dementia in Alzheimer's disease with delusions (8) Major neurocognitive disorder LES MORA MD Aug 19, 2021 07:23
[2021-08-19] MEDS: CALCIUM CARB/VIT D3 500/200 TABLET PO SCH (08:33)
[2021-08-19] MEDS: metFORMIN 850 MG TABLET PO SCH ×2 (08:33→17:31)
[2021-08-19] MEDS: UBIDECARENONE 50 MG CAPSULE. PO SCH (08:33)
[2021-08-19] MEDS: SERTRALINE 50 MG TABLET. PO SCH (08:33)
[2021-08-19] MEDS: LACTOBACILLUS RHAMNOSUS GG 1 CAPSULE. PO SCH ×2 (08:33→19:46)
[2021-08-19] MEDS: amLODIPine BESYLATE 5 MG TABLET PO SCH (08:33)
[2021-08-19] MEDS: RIVASTIGMINE 13.3MG PATCH. TD SCH (08:33)
[2021-08-19] MEDS: FLUTICASONE FUROATE 100mcg/INH ELLIPTA INHALER. INH SCH ×2 (08:34→19:46)
[2021-08-19] MEDS: FOLIC ACID 1 MG TABLET PO SCH (08:34)
[2021-08-19] MEDS: SMZ/TMP 800/160MG TABLET. PO SCH ×2 (08:34→19:47)
[2021-08-19] MEDS: DOXYCYCLINE HYCLATE 100 MG TABLET PO SCH ×2 (08:34→19:47)
[2021-08-19 16:11] VITALS: BP 141/64
[2021-08-19] MEDS: MELATONIN 3 MG TABLET PO SCH (19:46)
[2021-08-19] MEDS: MIRTAZAPINE 7.5 MG TABLET. PO SCH (19:47)
--- NOTE | 2021-08-19 21:02 | PDOC ---
Exam Note: Marvin Note: Please also refer to the separate dictated note~for this date of service dictated separately.~Patient seen individually. Discussed the patient with Nursing staff reviewed the chart.~Reviewed interim history and current functioning. Reviewed vital signs,~Labs/ Radiology~and current medications noted below. Continue current treatment with the changes noted in the dictated addendum note Assessment: Vital Signs/I&O: Vital Signs Date Time Temp Pulse Resp B/P (MAP) Pulse Ox O2 Delivery O2 Flow Rate FiO2 08/19/21 16:11 97.9 69 18 141/64 (89) Room Air 08/19/21 06:02 97 I & O 08/18/21 08/18/21 08/19/21 15:00 23:00 07:00 Intake Total 840 ml 480 ml Balance 840 ml 480 ml Labs: Laboratory Tests Test 08/19/21 07:39 Glucose (Fingerstick) 106 mg/dL (70-99) H Current Medications: Meds: Laboratory Tests Test 08/19/21 07:39 Glucose (Fingerstick) 106 mg/dL Current Medications Medications (Trade) Dose Ordered Sig/Joyce Route PRN Reason Start Time Stop Time Status Last Admin Dose Admin Acetaminophen (Tylenol) 650 mg PRN Q4HRS PRN PO pain or fever 08/07/21 18:45 08/11/21 12:18 Albuterol Sulfate (Ventolin) 2.5 mg PRN Q6HRS PRN NEB SHORTNESS OF AIR 08/07/21 18:45 08/07/21 19:47 DC Amlodipine Besylate (Norvasc) 5 mg DAILY PO 08/08/21 09:00 08/19/21 08:33 Vitamin D (Vitamin D3) 5,000 unit WEEKLY PO 08/14/21 09:00 08/14/21 08:26 Donepezil HCl (Aricept) 5 mg HS PO 08/07/21 21:00 08/08/21 18:37 DC 08/07/21 20:18 Melatonin (Melatonin) 6 mg QHS PO 08/07/21 21:00 08/08/21 18:37 DC 08/07/21 20:18 Non-Formulary Medication (Budesonide/ Formoterol Fumarate (Symbicort 160-4.5 Mcg Inhaler)) 2 puff BID IH 08/07/21 21:00 08/07/21 19:24 DC Calcium/Vitamin D (Oscal D 500mg/ 200uts) 1 tab DAILY PO 08/08/21 09:00 08/19/21 08:33 Non-Formulary Medication (Tiotropium [place] (Spiriva)) 1 cap DAILY IH 08/08/21 09:00 08/07/21 19:24 DC Coenzyme Q10 (Coenzyme Q10) 50 mg DAILY PO 08/08/21 09:00 08/19/21 08:33 Folic Acid (Folic Acid) 1 mg DAILY PO 08/08/21 09:00 08/19/21 08:34 Acetaminophen (Tylenol) 650 mg PRN Q6HRS PRN PO MILD PAIN / TEMP > 100.3'F 08/07/21 18:45 08/07/21 18:51 DC Multi-Ingredient Ointment (Analgesic [place]) 1 niles PRN QID PRN TP MUSCLE PAIN 08/07/21 18:45 Al Hydroxide/Mg Hydroxide (Mylanta Plus Xs) 15 ml PRN AFTMEALHC PRN PO DYSPEPSIA 08/07/21 18:45 Magnesium Hydroxide (Milk Of Magnesia) 2,400 mg PRN QHS PRN PO CONSTIPATION 08/07/21 18:45 Influenza Virus Vaccine Quadrival (Flulaval Quad [id number] Syringe) 0.5 ml ONCE ONCE VAX IM 08/08/21 09:00 08/08/21 09:01 DC 08/08/21 10:45 Budesonide (Pulmicort) 0.5 mg RTBID NEB 08/07/21 20:00 08/07/21 19:48 DC Albuterol/ Ipratropium (Duoneb) 3 ml RTQID NEB 08/07/21 20:00 08/07/21 19:49 DC Albuterol/ Ipratropium (Combivent Respimat 20-100 Mcg) 1 puff PRN Q6HRS PRN INH SHORTNESS OF BREATH 08/07/21 20:00 Fluticasone Furoate (ARNUITY 100mcg ELLIPTA) 1 puff BID INH 08/07/21 21:00 08/19/21 19:46 Insulin Human Lispro (HumaLOG) 0-5 UNITS TIDWMEALS SQ 08/08/21 17:00 08/17/21 11:28 DC 08/12/21 12:29 Dextrose (Dextrose 50%-Water Syringe) 12.5 gm PRN Q15MIN PRN IV SEE COMMENTS 08/08/21 17:00 Donepezil HCl (Aricept) 10 mg HS PO 08/08/21 21:00 08/09/21 11:16 DC 08/08/21 20:18 Melatonin (Melatonin) 3 mg QHS PO 08/08/21 21:00 08/19/21 19:46 Rivastigmine (Exelon) 1 patch DAILY TD 08/09/21 09:00 08/11/21 23:50 DC 08/11/21 08:14 Rivastigmine (Exelon) 1 patch DAILY TD 08/12/21 09:00 08/14/21 23:51 DC 08/14/21 08:27 Rivastigmine (Exelon 13.3mg) 1 patch DAILY TD 08/15/21 09:00 08/19/21 08:33 Mirtazapine (Remeron) 7.5 mg QHS PO 08/08/21 21:00 08/19/21 19:47 Sertraline HCl (Zoloft) 25 mg DAILY PO 08/10/21 09:00 08/12/21 21:00 DC 08/12/21 08:59 Sertraline HCl (Zoloft) 50 mg DAILY PO 08/13/21 09:00 08/16/21 13:04 DC 08/16/21 09:00 Albuterol/ Ipratropium (Duoneb) 3 ml PRN QID PRN NEB WHEEZING 08/09/21 14:00 08/10/21 06:39 DC Cephalexin HCl (Keflex) 500 mg TID PO 08/09/21 21:00 08/16/21 21:00 DC 08/16/21 20:47 Lactobacillus Rhamnosus (Culturelle) 1 cap BID PO 08/12/21 21:00 08/19/21 19:46 Sertraline HCl (Zoloft) 75 mg DAILY PO 08/17/21 09:00 08/19/21 08:33 Doxycycline Hyclate (Vibra-Tab) 100 mg BID PO 08/17/21 12:30 08/24/21 12:29 08/19/21 19:47 Trimethoprim/ Sulfamethoxazole (Bactrim Ds) 1 tab BID PO 08/17/21 12:00 08/24/21 11:59 08/19/21 19:47 Metformin HCl (Glucophage) 850 mg BIDWMEALS PO 08/17/21 17:00 08/19/21 17:31 I have reviewed the current psychotropics carefully including drug interactions. Risk benefit ratio favors no change other than as noted in my dictated progress note. Diagnosis: Problems: (1) Impulse control disorder (2) Dementia of the Alzheimer's type with early onset with behavioral disturbance (3) Anxiety disorder, unspecified (4) Dementia, vascular, with depression (5) Dementia, vascular, with delusions (6) Dementia in Alzheimer's disease with depression (7) Dementia in Alzheimer's disease with delusions (8) Major neurocognitive disorder LES MORA MD Aug 19, 2021 21:02
[2021-08-20 05:43] VITALS: BP 156/79
[2021-08-20] MEDS: RIVASTIGMINE 13.3MG PATCH. TD SCH (08:17)
[2021-08-20] MEDS: LACTOBACILLUS RHAMNOSUS GG 1 CAPSULE. PO SCH ×2 (08:17→20:09)
[2021-08-20] MEDS: amLODIPine BESYLATE 5 MG TABLET PO SCH (08:17)
[2021-08-20] MEDS: metFORMIN 850 MG TABLET PO SCH ×2 (08:17→17:14)
[2021-08-20] MEDS: FLUTICASONE FUROATE 100mcg/INH ELLIPTA INHALER. INH SCH ×2 (08:18→20:09)
[2021-08-20] MEDS: SERTRALINE 50 MG TABLET. PO SCH (08:18)
[2021-08-20] MEDS: DOXYCYCLINE HYCLATE 100 MG TABLET PO SCH ×2 (08:18→20:09)
[2021-08-20] MEDS: SMZ/TMP 800/160MG TABLET. PO SCH ×2 (08:18→20:09)
[2021-08-20] MEDS: FOLIC ACID 1 MG TABLET PO SCH (08:18)
[2021-08-20] MEDS: UBIDECARENONE 50 MG CAPSULE. PO SCH (08:18)
[2021-08-20] MEDS: CALCIUM CARB/VIT D3 500/200 TABLET PO SCH (08:18)
[2021-08-20 15:27] VITALS: BP 112/72
[2021-08-20] MEDS: MELATONIN 3 MG TABLET PO SCH (20:09)
[2021-08-20] MEDS: MIRTAZAPINE 7.5 MG TABLET. PO SCH (20:09)
--- NOTE | 2021-08-20 21:57 | PDOC ---
Exam Note: Marvin Note: This note is a late entry for 08/18/2021 covers elements not covered in my initial note. Subjective: The patient was seen individually in the evening of 08/18/2021 with Jo-Ann FRAZIER, discussed and reviewed the chart. The patient slept 7-1/4 hours previous night. He has been flat, withdrawn, otherwise, appropriate, confused. Review of Systems: No CV, , pulmonary, eye system symptoms on review. He has discomfort in his hand and has been treated on antibiotics due to cellulitis. Mental Status Exam: The patient is oriented to himself. Insight and judgment, recent and remote memory, attention and concentration, fund of knowledge is poor consistent with his diagnoses. Laboratory Data: Reviewed. Impression: Major neurocognitive disorder Alzheimer, vascular, with delusions, depression, behavioral disturbance. Anxiety disorder unspecified. Impulse control disorder. Plan: Continue rest psychotropics unchanged. Assessment: Vital Signs/I&O: Vital Signs Date Time Temp Pulse Resp B/P (MAP) Pulse Ox O2 Delivery O2 Flow Rate FiO2 08/20/21 15:27 98.4 80 16 112/72 (85) 94 08/19/21 16:11 Room Air I & O 08/19/21 08/19/21 08/20/21 15:00 23:00 07:00 Intake Total 350 ml 480 ml Balance 350 ml 480 ml Labs: Laboratory Tests Test 08/20/21 07:18 Glucose (Fingerstick) 96 mg/dL (70-99) Current Medications: Meds: Laboratory Tests Test 08/20/21 07:18 Glucose (Fingerstick) 96 mg/dL Current Medications Medications (Trade) Dose Ordered Sig/Joyce Route PRN Reason Start Time Stop Time Status Last Admin Dose Admin Acetaminophen (Tylenol) 650 mg PRN Q4HRS PRN PO pain or fever 08/07/21 18:45 08/11/21 12:18 Albuterol Sulfate (Ventolin) 2.5 mg PRN Q6HRS PRN NEB SHORTNESS OF AIR 08/07/21 18:45 08/07/21 19:47 DC Amlodipine Besylate (Norvasc) 5 mg DAILY PO 08/08/21 09:00 08/20/21 08:17 Vitamin D (Vitamin D3) 5,000 unit WEEKLY PO 08/14/21 09:00 08/14/21 08:26 Donepezil HCl (Aricept) 5 mg HS PO 08/07/21 21:00 08/08/21 18:37 DC 08/07/21 20:18 Melatonin (Melatonin) 6 mg QHS PO 08/07/21 21:00 08/08/21 18:37 DC 08/07/21 20:18 Non-Formulary Medication (Budesonide/ Formoterol Fumarate (Symbicort 160-4.5 Mcg Inhaler)) 2 puff BID IH 08/07/21 21:00 08/07/21 19:24 DC Calcium/Vitamin D (Oscal D 500mg/ 200uts) 1 tab DAILY PO 08/08/21 09:00 08/20/21 08:18 Non-Formulary Medication (Tiotropium [place] (Spiriva)) 1 cap DAILY IH 08/08/21 09:00 08/07/21 19:24 DC Coenzyme Q10 (Coenzyme Q10) 50 mg DAILY PO 08/08/21 09:00 08/20/21 08:18 Folic Acid (Folic Acid) 1 mg DAILY PO 08/08/21 09:00 08/20/21 08:18 Acetaminophen (Tylenol) 650 mg PRN Q6HRS PRN PO MILD PAIN / TEMP > 100.3'F 08/07/21 18:45 08/07/21 18:51 DC Multi-Ingredient Ointment (Analgesic [place]) 1 niles PRN QID PRN TP MUSCLE PAIN 08/07/21 18:45 Al Hydroxide/Mg Hydroxide (Mylanta Plus Xs) 15 ml PRN AFTMEALHC PRN PO DYSPEPSIA 08/07/21 18:45 Magnesium Hydroxide (Milk Of Magnesia) 2,400 mg PRN QHS PRN PO CONSTIPATION 08/07/21 18:45 Influenza Virus Vaccine Quadrival (Flulaval Quad [id number] Syringe) 0.5 ml ONCE ONCE VAX IM 08/08/21 09:00 08/08/21 09:01 DC 08/08/21 10:45 Budesonide (Pulmicort) 0.5 mg RTBID NEB 08/07/21 20:00 08/07/21 19:48 DC Albuterol/ Ipratropium (Duoneb) 3 ml RTQID NEB 08/07/21 20:00 08/07/21 19:49 DC Albuterol/ Ipratropium (Combivent Respimat 20-100 Mcg) 1 puff PRN Q6HRS PRN INH SHORTNESS OF BREATH 08/07/21 20:00 Fluticasone Furoate (ARNUITY 100mcg ELLIPTA) 1 puff BID INH 08/07/21 21:00 08/20/21 20:09 Insulin Human Lispro (HumaLOG) 0-5 UNITS TIDWMEALS SQ 08/08/21 17:00 08/17/21 11:28 DC 08/12/21 12:29 Dextrose (Dextrose 50%-Water Syringe) 12.5 gm PRN Q15MIN PRN IV SEE COMMENTS 08/08/21 17:00 Donepezil HCl (Aricept) 10 mg HS PO 08/08/21 21:00 08/09/21 11:16 DC 08/08/21 20:18 Melatonin (Melatonin) 3 mg QHS PO 08/08/21 21:00 08/20/21 20:09 Rivastigmine (Exelon) 1 patch DAILY TD 08/09/21 09:00 08/11/21 23:50 DC 08/11/21 08:14 Rivastigmine (Exelon) 1 patch DAILY TD 08/12/21 09:00 08/14/21 23:51 DC 08/14/21 08:27 Rivastigmine (Exelon 13.3mg) 1 patch DAILY TD 08/15/21 09:00 08/20/21 08:17 Mirtazapine (Remeron) 7.5 mg QHS PO 08/08/21 21:00 08/20/21 20:09 Sertraline HCl (Zoloft) 25 mg DAILY PO 08/10/21 09:00 08/12/21 21:00 DC 08/12/21 08:59 Sertraline HCl (Zoloft) 50 mg DAILY PO 08/13/21 09:00 08/16/21 13:04 DC 08/16/21 09:00 Albuterol/ Ipratropium (Duoneb) 3 ml PRN QID PRN NEB WHEEZING 08/09/21 14:00 08/10/21 06:39 DC Cephalexin HCl (Keflex) 500 mg TID PO 08/09/21 21:00 08/16/21 21:00 DC 08/16/21 20:47 Lactobacillus Rhamnosus (Culturelle) 1 cap BID PO 08/12/21 21:00 08/20/21 20:09 Sertraline HCl (Zoloft) 75 mg DAILY PO 08/17/21 09:00 08/20/21 08:18 Doxycycline Hyclate (Vibra-Tab) 100 mg BID PO 08/17/21 12:30 08/24/21 12:29 08/20/21 20:09 Trimethoprim/ Sulfamethoxazole (Bactrim Ds) 1 tab BID PO 08/17/21 12:00 08/24/21 11:59 08/20/21 20:09 Metformin HCl (Glucophage) 850 mg BIDWMEALS PO 08/17/21 17:00 08/20/21 17:14 I have reviewed the current psychotropics carefully including drug interactions. Risk benefit ratio favors no change other than as noted in my dictated progress note. Diagnosis: Problems: (1) Impulse control disorder (2) Dementia of the Alzheimer's type with early onset with behavioral disturban ce (3) Anxiety disorder, unspecified (4) Dementia, vascular, with depression (5) Dementia, vascular, with delusions (6) Dementia in Alzheimer's disease with depression (7) Dementia in Alzheimer's disease with delusions (8) Major neurocognitive disorder LES MORA MD Aug 20, 2021 21:57
--- NOTE | 2021-08-20 22:32 | PDOC ---
Exam Note: Marvin Note: This note is a late entry for 08/19/2021 covers elements not covered in my initial note. Subjective: The patient was seen individually in the evening of 08/19/2021 with Jo-Ann FRAZIER, discussed and reviewed the chart. The patient slept 6-1/2 hours previous night. Patient was irritable at night after the showers but compliant with medications. He has done well today. I met with him in his room. Review of Systems: No CV, , pulmonary, eye system symptoms on review. He is somewhat hard of hearing. Mental Status Exam: The patient is oriented to himself. Insight and judgment, recent and remote memory, attention and concentration, fund of knowledge is poor consistent with his diagnoses. Laboratory Data: Reviewed. Impression: Major neurocognitive disorder Alzheimer, vascular, with delusions, depression, behavioral disturbance. Anxiety disorder unspecified. Impulse control disorder. Plan: Continue rest psychotropics unchanged. Assessment: Vital Signs/I&O: Vital Signs Date Time Temp Pulse Resp B/P (MAP) Pulse Ox O2 Delivery O2 Flow Rate FiO2 08/20/21 15:27 98.4 80 16 112/72 (85) 94 08/19/21 16:11 Room Air I & O 08/19/21 08/19/21 08/20/21 15:00 23:00 07:00 Intake Total 350 ml 480 ml Balance 350 ml 480 ml Labs: Laboratory Tests Test 08/20/21 07:18 Glucose (Fingerstick) 96 mg/dL (70-99) Current Medications: Meds: Laboratory Tests Test 08/20/21 07:18 Glucose (Fingerstick) 96 mg/dL Current Medications Medications (Trade) Dose Ordered Sig/Joyce Route PRN Reason Start Time Stop Time Status Last Admin Dose Admin Acetaminophen (Tylenol) 650 mg PRN Q4HRS PRN PO pain or fever 08/07/21 18:45 08/11/21 12:18 Albuterol Sulfate (Ventolin) 2.5 mg PRN Q6HRS PRN NEB SHORTNESS OF AIR 08/07/21 18:45 08/07/21 19:47 DC Amlodipine Besylate (Norvasc) 5 mg DAILY PO 08/08/21 09:00 08/20/21 08:17 Vitamin D (Vitamin D3) 5,000 unit WEEKLY PO 08/14/21 09:00 08/14/21 08:26 Donepezil HCl (Aricept) 5 mg HS PO 08/07/21 21:00 08/08/21 18:37 DC 08/07/21 20:18 Melatonin (Melatonin) 6 mg QHS PO 08/07/21 21:00 08/08/21 18:37 DC 08/07/21 20:18 Non-Formulary Medication (Budesonide/ Formoterol Fumarate (Symbicort 160-4.5 Mcg Inhaler)) 2 puff BID IH 08/07/21 21:00 08/07/21 19:24 DC Calcium/Vitamin D (Oscal D 500mg/ 200uts) 1 tab DAILY PO 08/08/21 09:00 08/20/21 08:18 Non-Formulary Medication (Tiotropium [place] (Spiriva)) 1 cap DAILY 08/08/21 09:00 08/07/21 19:24 DC Coenzyme Q10 (Coenzyme Q10) 50 mg DAILY PO 08/08/21 09:00 08/20/21 08:18 Folic Acid (Folic Acid) 1 mg DAILY PO 08/08/21 09:00 08/20/21 08:18 Acetaminophen (Tylenol) 650 mg PRN Q6HRS PRN PO MILD PAIN / TEMP > 100.3'F 08/07/21 18:45 08/07/21 18:51 DC Multi-Ingredient Ointment (Analgesic [place]) 1 niles PRN QID PRN TP MUSCLE PAIN 08/07/21 18:45 Al Hydroxide/Mg Hydroxide (Mylanta Plus Xs) 15 ml PRN AFTMEALHC PRN PO DYSPEPSIA 08/07/21 18:45 Magnesium Hydroxide (Milk Of Magnesia) 2,400 mg PRN QHS PRN PO CONSTIPATION 08/07/21 18:45 Influenza Virus Vaccine Quadrival (Flulaval Quad [id number] Syringe) 0.5 ml ONCE ONCE VAX IM 08/08/21 09:00 08/08/21 09:01 DC 08/08/21 10:45 Budesonide (Pulmicort) 0.5 mg RTBID NEB 08/07/21 20:00 08/07/21 19:48 DC Albuterol/ Ipratropium (Duoneb) 3 ml RTQID NEB 08/07/21 20:00 08/07/21 19:49 DC Albuterol/ Ipratropium (Combivent Respimat 20-100 Mcg) 1 puff PRN Q6HRS PRN INH SHORTNESS OF BREATH 08/07/21 20:00 Fluticasone Furoate (ARNUITY 100mcg ELLIPTA) 1 puff BID INH 08/07/21 21:00 08/20/21 20:09 Insulin Human Lispro (HumaLOG) 0-5 UNITS TIDWMEALS SQ 08/08/21 17:00 08/17/21 11:28 DC 08/12/21 12:29 Dextrose (Dextrose 50%-Water Syringe) 12.5 gm PRN Q15MIN PRN IV SEE COMMENTS 08/08/21 17:00 Donepezil HCl (Aricept) 10 mg HS PO 08/08/21 21:00 08/09/21 11:16 DC 08/08/21 20:18 Melatonin (Melatonin) 3 mg QHS PO 08/08/21 21:00 08/20/21 20:09 Rivastigmine (Exelon) 1 patch DAILY TD 08/09/21 09:00 08/11/21 23:50 DC 08/11/21 08:14 Rivastigmine (Exelon) 1 patch DAILY TD 08/12/21 09:00 08/14/21 23:51 DC 08/14/21 08:27 Rivastigmine (Exelon 13.3mg) 1 patch DAILY TD 08/15/21 09:00 08/20/21 08:17 Mirtazapine (Remeron) 7.5 mg QHS PO 08/08/21 21:00 08/20/21 20:09 Sertraline HCl (Zoloft) 25 mg DAILY PO 08/10/21 09:00 08/12/21 21:00 DC 08/12/21 08:59 Sertraline HCl (Zoloft) 50 mg DAILY PO 08/13/21 09:00 08/16/21 13:04 DC 08/16/21 09:00 Albuterol/ Ipratropium (Duoneb) 3 ml PRN QID PRN NEB WHEEZING 08/09/21 14:00 08/10/21 06:39 DC Cephalexin HCl (Keflex) 500 mg TID PO 08/09/21 21:00 11/11/21 21:00 DC 08/16/21 20:47 Lactobacillus Rhamnosus (Culturelle) 1 cap BID PO 08/12/21 21:00 08/20/21 20:09 Sertraline HCl (Zoloft) 75 mg DAILY PO 08/17/21 09:00 08/20/21 08:18 Doxycycline Hyclate (Vibra-Tab) 100 mg BID PO 08/17/21 12:30 08/24/21 12:29 08/20/21 20:09 Trimethoprim/ Sulfamethoxazole (Bactrim Ds) 1 tab BID PO 08/17/21 12:00 08/24/21 11:59 08/20/21 20:09 Metformin HCl (Glucophage) 850 mg BIDWMEALS PO 08/17/21 17:00 08/20/21 17:14 I have reviewed the current psychotropics carefully including drug interactions. Risk benefit ratio favors no change other than as noted in my dictated progress note. Diagnosis: Problems: (1) Impulse control disorder (2) Dementia of the Alzheimer's type with early onset with behavioral disturbance (3) Anxiety disorder, unspecified (4) Dementia, vascular, with depression (5) Dementia, vascular, with delusions (6) Dementia in Alzheimer's disease with depression (7) Dementia in Alzheimer's disease with delusions (8) Major neurocognitive disorder LES MORA MD Aug 20, 2021 22:32
--- NOTE | 2021-08-20 22:33 | PDOC ---
Exam Note: Marvin Note: Please also refer to the separate dictated note~for this date of service dictated separately.~Patient seen individually. Discussed the patient with Nursing staff reviewed the chart.~Reviewed interim history and current functioning. Reviewed vital signs,~Labs/ Radiology~and current medications noted below. Continue current treatment with the changes noted in the dictated addendum note Assessment: Vital Signs/I&O: Vital Signs Date Time Temp Pulse Resp B/P (MAP) Pulse Ox O2 Delivery O2 Flow Rate FiO2 08/20/21 15:27 98.4 80 16 112/72 (85) 94 08/19/21 16:11 Room Air I & O 08/19/21 08/19/21 08/20/21 15:00 23:00 07:00 Intake Total 350 ml 480 ml Balance 350 ml 480 ml Labs: Laboratory Tests Test 08/20/21 07:18 Glucose (Fingerstick) 96 mg/dL (70-99) Current Medications: I have reviewed the current psychotropics carefully including drug interactions. Risk benefit ratio favors no change other than as noted in my dictated progress note. Diagnosis: Problems: (1) Impulse control disorder (2) Dementia of the Alzheimer's type with early onset with behavioral disturbance (3) Anxiety disorder, unspecified (4) Dementia, vascular, with depression (5) Dementia, vascular, with delusions (6) Dementia in Alzheimer's disease with depression (7) Dementia in Alzheimer's disease with delusions (8) Major neurocognitive disorder LES MORA MD Aug 20, 2021 22:33
[2021-08-21 06:13] VITALS: BP 149/71
[2021-08-21] MEDS: metFORMIN 850 MG TABLET PO SCH ×2 (08:05→17:06)
[2021-08-21] MEDS: SERTRALINE 50 MG TABLET. PO SCH (08:05)
[2021-08-21] MEDS: amLODIPine BESYLATE 5 MG TABLET PO SCH (08:05)
[2021-08-21] MEDS: FLUTICASONE FUROATE 100mcg/INH ELLIPTA INHALER. INH SCH ×2 (08:06→20:14)
[2021-08-21] MEDS: DOXYCYCLINE HYCLATE 100 MG TABLET PO SCH ×2 (08:06→20:14)
[2021-08-21] MEDS: RIVASTIGMINE 13.3MG PATCH. TD SCH (08:06)
[2021-08-21] MEDS: CHOLECALCIFEROL (VITAMIN D3) 1,000 UNIT TABLET PO SCH (08:06)
[2021-08-21] MEDS: CALCIUM CARB/VIT D3 500/200 TABLET PO SCH (08:06)
[2021-08-21] MEDS: LACTOBACILLUS RHAMNOSUS GG 1 CAPSULE. PO SCH ×2 (08:06→20:14)
[2021-08-21] MEDS: UBIDECARENONE 50 MG CAPSULE. PO SCH (08:06)
[2021-08-21] MEDS: FOLIC ACID 1 MG TABLET PO SCH (08:06)
[2021-08-21] MEDS: SMZ/TMP 800/160MG TABLET. PO SCH ×2 (08:07→20:14)
[2021-08-21 15:46] VITALS: BP 135/70
[2021-08-21] MEDS: MELATONIN 3 MG TABLET PO SCH (20:14)
[2021-08-21] MEDS: MIRTAZAPINE 7.5 MG TABLET. PO SCH (20:14)
--- NOTE | 2021-08-21 20:55 | PDOC ---
Exam Note: Marvin Note: Please also refer to the separate dictated note~for this date of service dictated separately.~Patient seen individually. Discussed the patient with Nursing staff reviewed the chart.~Reviewed interim history and current functioning. Reviewed vital signs,~Labs/ Radiology~and current medications noted below. Continue current treatment with the changes noted in the dictated addendum note Assessment: Vital Signs/I&O: Vital Signs Date Time Temp Pulse Resp B/P (MAP) Pulse Ox O2 Delivery O2 Flow Rate FiO2 08/21/21 15:46 98.3 86 19 135/70 (91) 95 08/19/21 16:11 Room Air I & O 08/20/21 08/20/21 08/21/21 15:00 23:00 07:00 Intake Total 840 ml 240 ml 100 ml Balance 840 ml 240 ml 100 ml Current Medications: Meds: Current Medications Medications (Trade) Dose Ordered Sig/Joyce Route PRN Reason Start Time Stop Time Status Last Admin Dose Admin Acetaminophen (Tylenol) 650 mg PRN Q4HRS PRN PO pain or fever 08/07/21 18:45 08/11/21 12:18 Albuterol Sulfate (Ventolin) 2.5 mg PRN Q6HRS PRN NEB SHORTNESS OF AIR 08/07/21 18:45 08/07/21 19:47 DC Amlodipine Besylate (Norvasc) 5 mg DAILY PO 08/08/21 09:00 08/21/21 08:05 Vitamin D (Vitamin D3) 5,000 unit WEEKLY PO 08/14/21 09:00 08/21/21 08:06 Donepezil HCl (Aricept) 5 mg HS PO 08/07/21 21:00 08/08/21 18:37 DC 08/07/21 20:18 Melatonin (Melatonin) 6 mg QHS PO 08/07/21 21:00 08/08/21 18:37 DC 08/07/21 20:18 Non-Formulary Medication (Budesonide/ Formoterol Fumarate (Symbicort 160-4.5 Mcg Inhaler)) 2 puff BID IH 08/07/21 21:00 08/07/21 19:24 DC Calcium/Vitamin D (Oscal D 500mg/ 200uts) 1 tab DAILY PO 08/08/21 09:00 08/21/21 08:06 Non-Formulary Medication (Tiotropium [place] (Spiriva)) 1 cap DAILY IH 08/08/21 09:00 08/07/21 19:24 DC Coenzyme Q10 (Coenzyme Q10) 50 mg DAILY PO 08/08/21 09:00 08/21/21 08:06 Folic Acid (Folic Acid) 1 mg DAILY PO 08/08/21 09:00 08/21/21 08:06 Acetaminophen (Tylenol) 650 mg PRN Q6HRS PRN PO MILD PAIN / TEMP > 100.3'F 08/07/21 18:45 08/07/21 18:51 DC Multi-Ingredient Ointment (Analgesic [place]) 1 niles PRN QID PRN TP MUSCLE PAIN 08/07/21 18:45 Al Hydroxide/Mg Hydroxide (Mylanta Plus Xs) 15 ml PRN AFTMEALHC PRN PO DYSPEPSIA 08/07/21 18:45 Magnesium Hydroxide (Milk Of Magnesia) 2,400 mg PRN QHS PRN PO CONSTIPATION 08/07/21 18:45 Influenza Virus Vaccine Quadrival (Flulaval Quad [id number] Syringe) 0.5 ml ONCE ONCE VAX IM 08/08/21 09:00 08/08/21 09:01 DC 08/08/21 10:45 Budesonide (Pulmicort) 0.5 mg RTBID NEB 08/07/21 20:00 08/07/21 19:48 DC Albuterol/ Ipratropium (Duoneb) 3 ml RTQID NEB 08/07/21 20:00 08/07/21 19:49 DC Albuterol/ Ipratropium (Combivent Respimat 20-100 Mcg) 1 puff PRN Q6HRS PRN INH SHORTNESS OF BREATH 08/07/21 20:00 Fluticasone Furoate (ARNUITY 100mcg ELLIPTA) 1 puff BID INH 08/07/21 21:00 08/21/21 20:14 Insulin Human Lispro (HumaLOG) 0-5 UNITS TIDWMEALS SQ 08/08/21 17:00 08/17/21 11:28 DC 08/12/21 12:29 Dextrose (Dextrose 50%-Water Syringe) 12.5 gm PRN Q15MIN PRN IV SEE COMMENTS 08/08/21 17:00 Donepezil HCl (Aricept) 10 mg HS PO 08/08/21 21:00 08/09/21 11:16 DC 08/08/21 20:18 Melatonin (Melatonin) 3 mg QHS PO 08/08/21 21:00 08/21/21 20:14 Rivastigmine (Exelon) 1 patch DAILY TD 08/09/21 09:00 08/11/21 23:50 DC 08/11/21 08:14 Rivastigmine (Exelon) 1 patch DAILY TD 08/12/21 09:00 08/14/21 23:51 DC 08/14/21 08:27 Rivastigmine (Exelon 13.3mg) 1 patch DAILY TD 08/15/21 09:00 08/21/21 08:06 Mirtazapine (Remeron) 7.5 mg QHS PO 08/08/21 21:00 08/21/21 20:14 Sertraline HCl (Zoloft) 25 mg DAILY PO 08/10/21 09:00 08/12/21 21:00 DC 08/12/21 08:59 Sertraline HCl (Zoloft) 50 mg DAILY PO 08/13/21 09:00 08/16/21 13:04 DC 08/16/21 09:00 Albuterol/ Ipratropium (Duoneb) 3 ml PRN QID PRN NEB WHEEZING 08/09/21 14:00 08/10/21 06:39 DC Cephalexin HCl (Keflex) 500 mg TID PO 08/09/21 21:00 08/16/21 21:00 DC 08/16/21 20:47 Lactobacillus Rhamnosus (Culturelle) 1 cap BID PO 08/12/21 21:00 08/21/21 20:14 Sertraline HCl (Zoloft) 75 mg DAILY PO 08/17/21 09:00 08/21/21 08:05 Doxycycline Hyclate (Vibra-Tab) 100 mg BID PO 08/17/21 12:30 08/24/21 12:29 08/21/21 20:14 Trimethoprim/ Sulfamethoxazole (Bactrim Ds) 1 tab BID PO 08/17/21 12:00 08/24/21 11:59 08/21/21 20:14 Metformin HCl (Glucophage) 850 mg BIDWMEALS PO 08/17/21 17:00 08/21/21 17:06 I have reviewed the current psychotropics carefully including drug interactions. Risk benefit ratio favors no change other than as noted in my dictated progress note. Diagnosis: Problems: (1) Impulse control disorder (2) Dementia of the Alzheimer's type with early onset with behavioral disturbance (3) Anxiety disorder, unspecified (4) Dementia, vascular, with depression (5) Dementia, vascular, with delusions (6) Dementia in Alzheimer's disease with depression (7) Dementia in Alzheimer's disease with delusions (8) Major neurocognitive disorder LES OMRA MD Aug 21, 2021 20:55
[2021-08-22 06:00] VITALS: BP 142/79
[2021-08-22 06:09] LABS: BASO # 0.1 x10^3/uL (0.0-0.2); BASO % 1 % (0-3); EOS # 0.1 x10^3/uL (0.0-0.7); EOS % 1 % (0-3); HEMATOCRIT 36.5 % (39.0-53.0); HEMOGLOBIN 12.3 g/dL (13.0-17.5); LYMPH # 2.4 x10^3/uL (1.0-4.8); LYMPH % 30 % (24-48); MEAN CORPUSCULAR HEMOGLOBIN 31 pg (25-35); MEAN CORPUSCULAR HGB CONC 34 g/dL (31-37); MEAN CORPUSCULAR VOLUME 92 fL (79-100); MONO # 0.6 x10^3/uL (0.0-1.1); MONO % 8 % (0-9); NEUT # 4.8 x10^3uL (1.8-7.7); NEUT % 61 % (31-73); PLATELET COUNT 342 x10^3/uL (140-400); RED BLOOD COUNT 3.98 x10^6/uL (4.30-5.70); RED CELL DISTRIBUTION WIDTH 14.1 % (11.5-14.5); WHITE BLOOD COUNT 7.9 x10^3/uL (4.0-11.0)
[2021-08-22 06:25] LABS: ALBUMIN 2.8 g/dL (3.4-5.0); ALBUMIN/GLOBULIN RATIO 0.6 (1.0-1.7); CALCIUM 8.9 mg/dL (8.5-10.1); CREATININE 1.3 mg/dL (0.7-1.3); GFR 52.5; TOTAL BILIRUBIN 0.4 mg/dL (0.2-1.0); TOTAL PROTEIN 7.6 g/dL (6.4-8.2)
--- NOTE | 2021-08-22 07:00 | PDOC ---
Exam Note: Marvin Note: This note is a late entry for 08/20/2021 covers elements not covered in my initial note. Subjective: The patient was seen individually in the evening of 08/20/2021 with Jo-Ann FRAZIER, discussed and reviewed the chart. The patient slept 6-3/4 hours previous night. Patient remains confused, withdrawn, refuses medications at times. Review of Systems: No CV, , pulmonary, eye system symptoms on review. He is somewhat hard of hearing. Reliability poor. Mental Status Exam: The patient is oriented to himself. I met with him in his room. Insight and judgment, recent and remote memory, attention and concentration, fund of knowledge is poor consistent with his diagnoses. Laboratory Data: Reviewed. Impression: Major neurocognitive disorder Alzheimer, vascular, with delusions, depression, behavioral disturbance. Anxiety disorder unspecified. Impulse control disorder. Plan: Continue rest psychotropics unchanged. Assessment: Vital Signs/I&O: Vital Signs Date Time Temp Pulse Resp B/P (MAP) Pulse Ox O2 Delivery O2 Flow Rate FiO2 08/22/21 06:00 97.7 71 20 142/79 (100) 92 08/19/21 16:11 Room Air I & O 08/21/21 08/21/21 08/22/21 15:00 23:00 07:00 Intake Total 530 ml 380 ml Balance 530 ml 380 ml Labs: Laboratory Tests Test 08/22/21 05:50 White Blood Count 7.9 x10^3/uL (4.0-11.0) Red Blood Count 3.98 x10^6/uL (4.30-5.70) L Hemoglobin 12.3 g/dL (13.0-17.5) L Hematocrit 36.5 % (39.0-53.0) L Mean Corpuscular Volume 92 fL (79-100) Mean Corpuscular Hemoglobin 31 pg (25-35) Mean Corpuscular Hemoglobin Concent 34 g/dL (31-37) Red Cell Distribution Width 14.1 % (11.5-14.5) Platelet Count 342 x10^3/uL (140-400) Neutrophils (%) (Auto) 61 % (31-73) Lymphocytes (%) (Auto) 30 % (24-48) Monocytes (%) (Auto) 8 % (0-9) Eosinophils (%) (Auto) 1 % (0-3) Basophils (%) (Auto) 1 % (0-3) Neutrophils # (Auto) 4.8 x10^3uL (1.8-7.7) Lymphocytes # (Auto) 2.4 x10^3/uL (1.0-4.8) Monocytes # (Auto) 0.6 x10^3/uL (0.0-1.1) Eosinophils # (Auto) 0.1 x10^3/uL (0.0-0.7) Basophils # (Auto) 0.1 x10^3/uL (0.0-0.2) Sodium Level 135 mmol/L (136-145) L Potassium Level 4.0 mmol/L (3.5-5.1) Chloride Level 101 mmol/L (98-107) Carbon Dioxide Level 23 mmol/L (21-32) Anion Gap 11 (6-14) Blood Urea Nitrogen 30 mg/dL (8-26) H Creatinine 1.3 mg/dL (0.7-1.3) Estimated GFR (Cockcroft-Gault) 52.5 BUN/Creatinine Ratio 23 (6-20) H Glucose Level 87 mg/dL (70-99) Calcium Level 8.9 mg/dL (8.5-10.1) Total Bilirubin 0.4 mg/dL (0.2-1.0) Aspartate Amino Transferase (AST) 24 U/L (15-37) Alanine Aminotransferase (ALT) 31 U/L (16-63) Alkaline Phosphatase 76 U/L (46-116) Total Protein 7.6 g/dL (6.4-8.2) Albumin 2.8 g/dL (3.4-5.0) L Albumin/Globulin Ratio 0.6 (1.0-1.7) L Current Medications: Meds: Laboratory Tests Test 08/22/21 05:50 White Blood Count 7.9 x10^3/uL Red Blood Count 3.98 x10^6/uL Hemoglobin 12.3 g/dL Hematocrit 36.5 % Mean Corpuscular Volume 92 fL Mean Corpuscular Hemoglobin 31 pg Mean Corpuscular Hemoglobin Concent 34 g/dL Red Cell Distribution Width 14.1 % Platelet Count 342 x10^3/uL Neutrophils (%) (Auto) 61 % Lymphocytes (%) (Auto) 30 % Monocytes (%) (Auto) 8 % Eosinophils (%) (Auto) 1 % Basophils (%) (Auto) 1 % Neutrophils # (Auto) 4.8 x10^3uL Lymphocytes # (Auto) 2.4 x10^3/uL Monocytes # (Auto) 0.6 x10^3/uL Eosinophils # (Auto) 0.1 x10^3/uL Basophils # (Auto) 0.1 x10^3/uL Sodium Level 135 mmol/L Potassium Level 4.0 mmol/L Chloride Level 101 mmol/L Carbon Dioxide Level 23 mmol/L Anion Gap 11 Blood Urea Nitrogen 30 mg/dL Creatinine 1.3 mg/dL Estimated GFR (Cockcroft-Gault) 52.5 BUN/Creatinine Ratio 23 Glucose Level 87 mg/dL Calcium Level 8.9 mg/dL Total Bilirubin 0.4 mg/dL Aspartate Amino Transf (AST/SGOT) 24 U/L Alanine Aminotransferase (ALT/SGPT) 31 U/L Alkaline Phosphatase 76 U/L Total Protein 7.6 g/dL Albumin 2.8 g/dL Albumin/Globulin Ratio 0.6 Current Medications Medications (Trade) Dose Ordered Sig/Joyce Route PRN Reason Start Time Stop Time Status Last Admin Dose Admin Acetaminophen (Tylenol) 650 mg PRN Q4HRS PRN PO pain or fever 08/07/21 18:45 08/11/21 12:18 Albuterol Sulfate (Ventolin) 2.5 mg PRN Q6HRS PRN NEB SHORTNESS OF AIR 08/07/21 18:45 08/07/21 19:47 DC Amlodipine Besylate (Norvasc) 5 mg DAILY PO 08/08/21 09:00 08/21/21 08:05 Vitamin D (Vitamin D3) 5,000 unit WEEKLY PO 08/14/21 09:00 08/21/21 08:06 Donepezil HCl (Aricept) 5 mg HS PO 08/07/21 21:00 08/08/21 18:37 DC 08/07/21 20:18 Melatonin (Melatonin) 6 mg QHS PO 08/07/21 21:00 08/08/21 18:37 DC 08/07/21 20:18 Non-Formulary Medication (Budesonide/ Formoterol Fumarate (Symbicort 160-4.5 Mcg Inhaler)) 2 puff BID IH 08/07/21 21:00 08/07/21 19:24 DC Calcium/Vitamin D (Oscal D 500mg/ 200uts) 1 tab DAILY PO 08/08/21 09:00 08/21/21 08:06 Non-Formulary Medication (Tiotropium [place] (Spiriva)) 1 cap DAILY IH 08/08/21 09:00 08/07/21 19:24 DC Coenzyme Q10 (Coenzyme Q10) 50 mg DAILY PO 08/08/21 09:00 08/21/21 08:06 Folic Acid (Folic Acid) 1 mg DAILY PO 08/08/21 09:00 08/21/21 08:06 Acetaminophen (Tylenol) 650 mg PRN Q6HRS PRN PO MILD PAIN / TEMP > 100.3'F 08/07/21 18:45 08/07/21 18:51 DC Multi-Ingredient Ointment (Analgesic [place]) 1 niles PRN QID PRN TP MUSCLE PAIN 08/07/21 18:45 Al Hydroxide/Mg Hydroxide (Mylanta Plus Xs) 15 ml PRN AFTMEALHC PRN PO DYSPEPSIA 08/07/21 18:45 Magnesium Hydroxide (Milk Of Magnesia) 2,400 mg PRN QHS PRN PO CONSTIPATION 08/07/21 18:45 Influenza Virus Vaccine Quadrival (Flulaval Quad Syringe) 0.5 ml ONCE ONCE VAX IM 08/08/21 09:00 08/08/21 09:01 DC 08/08/21 10:45 Budesonide (Pulmicort) 0.5 mg RTBID NEB 08/07/21 20:00 08/07/21 19:48 DC Albuterol/ Ipratropium (Duoneb) 3 ml RTQID NEB 08/07/21 20:00 08/07/21 19:49 DC Albuterol/ Ipratropium (Combivent Respimat 20-100 Mcg) 1 puff PRN Q6HRS PRN INH SHORTNESS OF BREATH 08/07/21 20:00 Fluticasone Furoate (ARNUITY 100mcg ELLIPTA) 1 puff BID INH 08/07/21 21:00 08/21/21 20:14 Insulin Human Lispro (HumaLOG) 0-5 UNITS TIDWMEALS SQ 08/08/21 17:00 08/17/21 11:28 DC 08/12/21 12:29 Dextrose (Dextrose 50%-Water Syringe) 12.5 gm PRN Q15MIN PRN IV SEE COMMENTS 08/08/21 17:00 Donepezil HCl (Aricept) 10 mg HS PO 08/08/21 21:00 08/09/21 11:16 DC 08/08/21 20:18 Melatonin (Melatonin) 3 mg QHS PO 08/08/21 21:00 08/21/21 20:14 Rivastigmine (Exelon) 1 patch DAILY TD 08/09/21 09:00 08/11/21 23:50 DC 08/11/21 08:14 Rivastigmine (Exelon) 1 patch DAILY TD 08/12/21 09:00 08/14/21 23:51 DC 08/14/21 08:27 Rivastigmine (Exelon 13.3mg) 1 patch DAILY TD 08/15/21 09:00 08/21/21 08:06 Mirtazapine (Remeron) 7.5 mg QHS PO 08/08/21 21:00 08/21/21 20:14 Sertraline HCl (Zoloft) 25 mg DAILY PO 08/10/21 09:00 08/12/21 21:00 DC 08/12/21 08:59 Sertraline HCl (Zoloft) 50 mg DAILY PO 08/13/21 09:00 08/16/21 13:04 DC 08/16/21 09:00 Albuterol/ Ipratropium (Duoneb) 3 ml PRN QID PRN NEB WHEEZING 08/09/21 14:00 08/10/21 06:39 DC Cephalexin HCl (Keflex) 500 mg TID PO 08/09/21 21:00 08/16/21 21:00 DC 08/16/21 20:47 Lactobacillus Rhamnosus (Culturelle) 1 cap BID PO 08/12/21 21:00 08/21/21 20:14 Sertraline HCl (Zoloft) 75 mg DAILY PO 08/17/21 09:00 08/21/21 08:05 Doxycycline Hyclate (Vibra-Tab) 100 mg BID PO 08/17/21 12:30 08/24/21 12:29 08/21/21 20:14 Trimethoprim/ Sulfamethoxazole (Bactrim Ds) 1 tab BID PO 08/17/21 12:00 08/24/21 11:59 08/21/21 20:14 Metformin HCl (Glucophage) 850 mg BIDWMEALS PO 08/17/21 17:00 08/21/21 17:06 I have reviewed the current psychotropics carefully including drug interactions. Risk benefit ratio favors no change other than as noted in my dictated progress note. Diagnosis: Problems: (1) Impulse control disorder (2) Dementia of the Alzheimer's type with early onset with behavioral disturbance (3) Anxiety disorder, unspecified (4) Dementia, vascular, with depression (5) Dementia, vascular, with delusions (6) Dementia in Alzheimer's disease with depression (7) Dementia in Alzheimer's disease with delusions (8) Major neurocognitive disorder LES MORA MD Aug 22, 2021 07:00
--- NOTE | 2021-08-22 07:53 | PDOC ---
Exam Note: Marvin Note: This note is a late entry for 08/21/2021 covers elements not covered in my initial note. Subjective: The patient was seen individually in the evening of 08/21/2021 with Jo-Ann FRAZIER, discussed and reviewed the chart. The patient slept 4-1/4 hours previous night. Patient has been withdrawn, somewhat flat. Review of Systems: No CV, , pulmonary, eye system symptoms on review. He is hard of hearing. Mental Status Exam: The patient is oriented to himself. As I met with him in his room, he was asking me he needed to hitchhike home and that we discussed where he was and transition plans to a lower level of care once he was stabilized. Insight and judgment, recent and remote memory, attention and concentration, fund of knowledge is poor consistent with his diagnoses. Laboratory Data: Reviewed. Impression: Major neurocognitive disorder Alzheimer, vascular, with delusions, depression, behavioral disturbance. Anxiety disorder unspecified. Impulse control disorder. Plan: Continue rest psychotropics unchanged. Assessment: Vital Signs/I&O: Vital Signs Date Time Temp Pulse Resp B/P (MAP) Pulse Ox O2 Delivery O2 Flow Rate FiO2 08/22/21 06:00 97.7 71 20 142/79 (100) 92 08/19/21 16:11 Room Air I & O 08/21/21 08/21/21 08/22/21 15:00 23:00 07:00 Intake Total 530 ml 380 ml Balance 530 ml 380 ml Labs: Laboratory Tests Test 08/22/21 05:50 08/22/21 07:32 White Blood Count 7.9 x10^3/uL (4.0-11.0) Red Blood Count 3.98 x10^6/uL (4.30-5.70) L Hemoglobin 12.3 g/dL (13.0-17.5) L Hematocrit 36.5 % (39.0-53.0) L Mean Corpuscular Volume 92 fL (79-100) Mean Corpuscular Hemoglobin 31 pg (25-35) Mean Corpuscular Hemoglobin Concent 34 g/dL (31-37) Red Cell Distribution Width 14.1 % (11.5-14.5) Platelet Count 342 x10^3/uL (140-400) Neutrophils (%) (Auto) 61 % (31-73) Lymphocytes (%) (Auto) 30 % (24-48) Monocytes (%) (Auto) 8 % (0-9) Eosinophils (%) (Auto) 1 % (0-3) Basophils (%) (Auto) 1 % (0-3) Neutrophils # (Auto) 4.8 x10^3uL (1.8-7.7) Lymphocytes # (Auto) 2.4 x10^3/uL (1.0-4.8) Monocytes # (Auto) 0.6 x10^3/uL (0.0-1.1) Eosinophils # (Auto) 0.1 x10^3/uL (0.0-0.7) Basophils # (Auto) 0.1 x10^3/uL (0.0-0.2) Sodium Level 135 mmol/L (136-145) L Potassium Level 4.0 mmol/L (3.5-5.1) Chloride Level 101 mmol/L (98-107) Carbon Dioxide Level 23 mmol/L (21-32) Anion Gap 11 (6-14) Blood Urea Nitrogen 30 mg/dL (8-26) H Creatinine 1.3 mg/dL (0.7-1.3) Estimated GFR (Cockcroft-Gault) 52.5 BUN/Creatinine Ratio 23 (6-20) H Glucose Level 87 mg/dL (70-99) Calcium Level 8.9 mg/dL (8.5-10.1) Total Bilirubin 0.4 mg/dL (0.2-1.0) Aspartate Amino Transferase (AST) 24 U/L (15-37) Alanine Aminotransferase (ALT) 31 U/L (16-63) Alkaline Phosphatase 76 U/L (46-116) Total Protein 7.6 g/dL (6.4-8.2) Albumin 2.8 g/dL (3.4-5.0) L Albumin/Globulin Ratio 0.6 (1.0-1.7) L Glucose (Fingerstick) 89 mg/dL (70-99) Current Medications: Meds: Laboratory Tests Test 08/22/21 05:50 08/22/21 07:32 White Blood Count 7.9 x10^3/uL Red Blood Count 3.98 x10^6/uL Hemoglobin 12.3 g/dL Hematocrit 36.5 % Mean Corpuscular Volume 92 fL Mean Corpuscular Hemoglobin 31 pg Mean Corpuscular Hemoglobin Concent 34 g/dL Red Cell Distribution Width 14.1 % Platelet Count 342 x10^3/uL Neutrophils (%) (Auto) 61 % Lymphocytes (%) (Auto) 30 % Monocytes (%) (Auto) 8 % Eosinophils (%) (Auto) 1 % Basophils (%) (Auto) 1 % Neutrophils # (Auto) 4.8 x10^3uL Lymphocytes # (Auto) 2.4 x10^3/uL Monocytes # (Auto) 0.6 x10^3/uL Eosinophils # (Auto) 0.1 x10^3/uL Basophils # (Auto) 0.1 x10^3/uL Sodium Level 135 mmol/L Potassium Level 4.0 mmol/L Chloride Level 101 mmol/L Carbon Dioxide Level 23 mmol/L Anion Gap 11 Blood Urea Nitrogen 30 mg/dL Creatinine 1.3 mg/dL Estimated GFR (Cockcroft-Gault) 52.5 BUN/Creatinine Ratio 23 Glucose Level 87 mg/dL Calcium Level 8.9 mg/dL Total Bilirubin 0.4 mg/dL Aspartate Amino Transf (AST/SGOT) 24 U/L Alanine Aminotransferase (ALT/SGPT) 31 U/L Alkaline Phosphatase 76 U/L Total Protein 7.6 g/dL Albumin 2.8 g/dL Albumin/Globulin Ratio 0.6 Glucose (Fingerstick) 89 mg/dL Current Medications Medications (Trade) Dose Ordered Sig/Joyce Route PRN Reason Start Time Stop Time Status Last Admin Dose Admin Acetaminophen (Tylenol) 650 mg PRN Q4HRS PRN PO pain or fever 08/07/21 18:45 08/11/21 12:18 Albuterol Sulfate (Ventolin) 2.5 mg PRN Q6HRS PRN NEB SHORTNESS OF AIR 08/07/21 18:45 08/07/21 19:47 DC Amlodipine Besylate (Norvasc) 5 mg DAILY PO 08/08/21 09:00 08/21/21 08:05 Vitamin D (Vitamin D3) 5,000 unit WEEKLY PO 08/14/21 09:00 08/21/21 08:06 Donepezil HCl (Aricept) 5 mg HS PO 08/07/21 21:00 08/08/21 18:37 DC 08/07/21 20:18 Melatonin (Melatonin) 6 mg QHS PO 08/07/21 21:00 08/08/21 18:37 DC 08/07/21 20:18 Non-Formulary Medication (Budesonide/ Formoterol Fumarate (Symbicort 160-4.5 Mcg Inhaler)) 2 puff BID IH 08/07/21 21:00 08/07/21 19:24 DC Calcium/Vitamin D (Oscal D 500mg/ 200uts) 1 tab DAILY PO 08/08/21 09:00 08/21/21 08:06 Non-Formulary Medication (Tiotropium [place] (Spiriva)) 1 cap DAILY IH 08/08/21 09:00 08/07/21 19:24 DC Coenzyme Q10 (Coenzyme Q10) 50 mg DAILY PO 08/08/21 09:00 08/21/21 08:06 Folic Acid (Folic Acid) 1 mg DAILY PO 08/08/21 09:00 08/21/21 08:06 Acetaminophen (Tylenol) 650 mg PRN Q6HRS PRN PO MILD PAIN / TEMP > 100.3'F 08/07/21 18:45 08/07/21 18:51 DC Multi-Ingredient Ointment (Analgesic [place]) 1 niles PRN QID PRN TP MUSCLE PAIN 08/07/21 18:45 Al Hydroxide/Mg Hydroxide (Mylanta Plus Xs) 15 ml PRN AFTMEALHC PRN PO DYSPEPSIA 08/07/21 18:45 Magnesium Hydroxide (Milk Of Magnesia) 2,400 mg PRN QHS PRN PO CONSTIPATION 08/07/21 18:45 Influenza Virus Vaccine Quadrival (Flulaval Quad [id number] Syringe) 0.5 ml ONCE ONCE VAX IM 08/08/21 09:00 08/08/21 09:01 DC 08/08/21 10:45 Budesonide (Pulmicort) 0.5 mg RTBID NEB 08/07/21 20:00 08/07/21 19:48 DC Albuterol/ Ipratropium (Duoneb) 3 ml RTQID NEB 08/07/21 20:00 08/07/21 19:49 DC Albuterol/ Ipratropium (Combivent Respimat 20-100 Mcg) 1 puff PRN Q6HRS PRN INH SHORTNESS OF BREATH 08/07/21 20:00 Fluticasone Furoate (ARNUITY 100mcg ELLIPTA) 1 puff BID INH 08/07/21 21:00 08/21/21 20:14 Insulin Human Lispro (HumaLOG) 0-5 UNITS TIDWMEALS SQ 08/08/21 17:00 08/17/21 11:28 DC 08/12/21 12:29 Dextrose (Dextrose 50%-Water Syringe) 12.5 gm PRN Q15MIN PRN IV SEE COMMENTS 08/08/21 17:00 Donepezil HCl (Aricept) 10 mg HS PO 08/08/21 21:00 08/09/21 11:16 DC 08/08/21 20:18 Melatonin (Melatonin) 3 mg QHS PO 08/08/21 21:00 08/21/21 20:14 Rivastigmine (Exelon) 1 patch DAILY TD 08/09/21 09:00 08/11/21 23:50 DC 08/11/21 08:14 Rivastigmine (Exelon) 1 patch DAILY TD 08/12/21 09:00 08/14/21 23:51 DC 08/14/21 08:27 Rivastigmine (Exelon 13.3mg) 1 patch DAILY TD 08/15/21 09:00 08/21/21 08:06 Mirtazapine (Remeron) 7.5 mg QHS PO 08/08/21 21:00 08/21/21 20:14 Sertraline HCl (Zoloft) 25 mg DAILY PO 08/10/21 09:00 08/12/21 21:00 DC 08/12/21 08:59 Sertraline HCl (Zoloft) 50 mg DAILY PO 08/13/21 09:00 08/16/21 13:04 DC 08/16/21 09:00 Albuterol/ Ipratropium (Duoneb) 3 ml PRN QID PRN NEB WHEEZING 08/09/21 14:00 08/10/21 06:39 DC Cephalexin HCl (Keflex) 500 mg TID PO 08/09/21 21:00 08/16/21 21:00 DC 08/16/21 20:47 Lactobacillus Rhamnosus (Culturelle) 1 cap BID PO 08/12/21 21:00 08/21/21 20:14 Sertraline HCl (Zoloft) 75 mg DAILY PO 08/17/21 09:00 08/21/21 08:05 Doxycycline Hyclate (Vibra-Tab) 100 mg BID PO 08/17/21 12:30 08/24/21 12:29 08/21/21 20:14 Trimethoprim/ Sulfamethoxazole (Bactrim Ds) 1 tab BID PO 08/17/21 12:00 08/24/21 11:59 08/21/21 20:14 Metformin HCl (Glucophage) 850 mg BIDWMEALS PO 08/17/21 17:00 08/21/21 17:06 I have reviewed the current psychotropics carefully including drug interactions. Risk benefit ratio favors no change other than as noted in my dictated progress note. Diagnosis: Problems: (1) Impulse control disorder (2) Dementia of the Alzheimer's type with early onset with behavioral disturbance (3) Anxiety disorder, unspecified (4) Dementia, vascular, with depression (5) Dementia, vascular, with delusions (6) Dementia in Alzheimer's disease with depression (7) Dementia in Alzheimer's disease with delusions (8) Major neurocognitive disorder LES MORA MD Aug 22, 2021 07:53
[2021-08-22] MEDS: UBIDECARENONE 50 MG CAPSULE. PO SCH (08:15)
[2021-08-22] MEDS: SMZ/TMP 800/160MG TABLET. PO SCH ×2 (08:15→21:06)
[2021-08-22] MEDS: amLODIPine BESYLATE 5 MG TABLET PO SCH (08:16)
[2021-08-22] MEDS: LACTOBACILLUS RHAMNOSUS GG 1 CAPSULE. PO SCH ×2 (08:16→21:05)
[2021-08-22] MEDS: SERTRALINE 50 MG TABLET. PO SCH (08:16)
[2021-08-22] MEDS: CALCIUM CARB/VIT D3 500/200 TABLET PO SCH (08:16)
[2021-08-22] MEDS: FOLIC ACID 1 MG TABLET PO SCH (08:16)
[2021-08-22] MEDS: DOXYCYCLINE HYCLATE 100 MG TABLET PO SCH (08:16)
[2021-08-22] MEDS: metFORMIN 850 MG TABLET PO SCH ×2 (08:16→17:17)
[2021-08-22] MEDS: FLUTICASONE FUROATE 100mcg/INH ELLIPTA INHALER. INH SCH ×2 (08:17→21:06)
[2021-08-22] MEDS: RIVASTIGMINE 13.3MG PATCH. TD SCH (08:17)
[2021-08-22 15:40] VITALS: BP 113/52
--- NOTE | 2021-08-22 20:17 | PDOC ---
Exam Note: Marvin Note: Please also refer to the separate dictated note~for this date of service dictated separately.~Patient seen individually. Discussed the patient with Nursing staff reviewed the chart.~Reviewed interim history and current functioning. Reviewed vital signs,~Labs/ Radiology~and current medications noted below. Continue current treatment with the changes noted in the dictated addendum note Assessment: Vital Signs/I&O: Vital Signs Date Time Temp Pulse Resp B/P (MAP) Pulse Ox O2 Delivery O2 Flow Rate FiO2 08/22/21 15:40 97.5 84 19 113/52 (72) 95 08/19/21 16:11 Room Air I & O 08/21/21 08/21/21 08/22/21 15:00 23:00 07:00 Intake Total 530 ml 380 ml Balance 530 ml 380 ml Labs: Laboratory Tests Test 08/22/21 05:50 08/22/21 07:32 White Blood Count 7.9 x10^3/uL (4.0-11.0) Red Blood Count 3.98 x10^6/uL (4.30-5.70) L Hemoglobin 12.3 g/dL (13.0-17.5) L Hematocrit 36.5 % (39.0-53.0) L Mean Corpuscular Volume 92 fL (79-100) Mean Corpuscular Hemoglobin 31 pg (25-35) Mean Corpuscular Hemoglobin Concent 34 g/dL (31-37) Red Cell Distribution Width 14.1 % (11.5-14.5) Platelet Count 342 x10^3/uL (140-400) Neutrophils (%) (Auto) 61 % (31-73) Lymphocytes (%) (Auto) 30 % (24-48) Monocytes (%) (Auto) 8 % (0-9) Eosinophils (%) (Auto) 1 % (0-3) Basophils (%) (Auto) 1 % (0-3) Neutrophils # (Auto) 4.8 x10^3uL (1.8-7.7) Lymphocytes # (Auto) 2.4 x10^3/uL (1.0-4.8) Monocytes # (Auto) 0.6 x10^3/uL (0.0-1.1) Eosinophils # (Auto) 0.1 x10^3/uL (0.0-0.7) Basophils # (Auto) 0.1 x10^3/uL (0.0-0.2) Sodium Level 135 mmol/L (136-145) L Potassium Level 4.0 mmol/L (3.5-5.1) Chloride Level 101 mmol/L (98-107) Carbon Dioxide Level 23 mmol/L (21-32) Anion Gap 11 (6-14) Blood Urea Nitrogen 30 mg/dL (8-26) H Creatinine 1.3 mg/dL (0.7-1.3) Estimated GFR (Cockcroft-Gault) 52.5 BUN/Creatinine Ratio 23 (6-20) H Glucose Level 87 mg/dL (70-99) Calcium Level 8.9 mg/dL (8.5-10.1) Total Bilirubin 0.4 mg/dL (0.2-1.0) Aspartate Amino Transferase (AST) 24 U/L (15-37) Alanine Aminotransferase (ALT) 31 U/L (16-63) Alkaline Phosphatase 76 U/L (46-116) Total Protein 7.6 g/dL (6.4-8.2) Albumin 2.8 g/dL (3.4-5.0) L Albumin/Globulin Ratio 0.6 (1.0-1.7) L Glucose (Fingerstick) 89 mg/dL (70-99) Current Medications: Meds: Laboratory Tests Test 08/22/21 05:50 08/22/21 07:32 White Blood Count 7.9 x10^3/uL Red Blood Count 3.98 x10^6/uL Hemoglobin 12.3 g/dL Hematocrit 36.5 % Mean Corpuscular Volume 92 fL Mean Corpuscular Hemoglobin 31 pg Mean Corpuscular Hemoglobin Concent 34 g/dL Red Cell Distribution Width 14.1 % Platelet Count 342 x10^3/uL Neutrophils (%) (Auto) 61 % Lymphocytes (%) (Auto) 30 % Monocytes (%) (Auto) 8 % Eosinophils (%) (Auto) 1 % Basophils (%) (Auto) 1 % Neutrophils # (Auto) 4.8 x10^3uL Lymphocytes # (Auto) 2.4 x10^3/uL Monocytes # (Auto) 0.6 x10^3/uL Eosinophils # (Auto) 0.1 x10^3/uL Basophils # (Auto) 0.1 x10^3/uL Sodium Level 135 mmol/L Potassium Level 4.0 mmol/L Chloride Level 101 mmol/L Carbon Dioxide Level 23 mmol/L Anion Gap 11 Blood Urea Nitrogen 30 mg/dL Creatinine 1.3 mg/dL Estimated GFR (Cockcroft-Gault) 52.5 BUN/Creatinine Ratio 23 Glucose Level 87 mg/dL Calcium Level 8.9 mg/dL Total Bilirubin 0.4 mg/dL Aspartate Amino Transf (AST/SGOT) 24 U/L Alanine Aminotransferase (ALT/SGPT) 31 U/L Alkaline Phosphatase 76 U/L Total Protein 7.6 g/dL Albumin 2.8 g/dL Albumin/Globulin Ratio 0.6 Glucose (Fingerstick) 89 mg/dL Current Medications Medications (Trade) Dose Ordered Sig/Joyce Route PRN Reason Start Time Stop Time Status Last Admin Dose Admin Acetaminophen (Tylenol) 650 mg PRN Q4HRS PRN PO pain or fever 08/07/21 18:45 08/11/21 12:18 Albuterol Sulfate (Ventolin) 2.5 mg PRN Q6HRS PRN NEB SHORTNESS OF AIR 08/07/21 18:45 08/07/21 19:47 DC Amlodipine Besylate (Norvasc) 5 mg DAILY PO 08/08/21 09:00 08/22/21 08:16 Vitamin D (Vitamin D3) 5,000 unit WEEKLY PO 08/14/21 09:00 08/21/21 08:06 Donepezil HCl (Aricept) 5 mg HS PO 08/07/21 21:00 08/08/21 18:37 DC 08/07/21 20:18 Melatonin (Melatonin) 6 mg QHS PO 08/07/21 21:00 08/08/21 18:37 DC 08/07/21 20:18 Non-Formulary Medication (Budesonide/ Formoterol Fumarate (Symbicort 160-4.5 Mcg Inhaler)) 2 puff BID IH 08/07/21 21:00 08/07/21 19:24 DC Calcium/Vitamin D (Oscal D 500mg/ 200uts) 1 tab DAILY PO 08/08/21 09:00 08/22/21 08:16 Non-Formulary Medication (Tiotropium [place] (Spiriva)) 1 cap DAILY IH 08/08/21 09:00 08/07/21 19:24 DC Coenzyme Q10 (Coenzyme Q10) 50 mg DAILY PO 08/08/21 09:00 08/22/21 08:15 Folic Acid (Folic Acid) 1 mg DAILY PO 08/08/21 09:00 08/22/21 08:16 Acetaminophen (Tylenol) 650 mg PRN Q6HRS PRN PO MILD PAIN / TEMP > 100.3'F 08/07/21 18:45 08/07/21 18:51 DC Multi-Ingredient Ointment (Analgesic [place]) 1 niles PRN QID PRN TP MUSCLE PAIN 08/07/21 18:45 Al Hydroxide/Mg Hydroxide (Mylanta Plus Xs) 15 ml PRN AFTMEALHC PRN PO DYSPEPSIA 08/07/21 18:45 Magnesium Hydroxide (Milk Of Magnesia) 2,400 mg PRN QHS PRN PO CONSTIPATION 08/07/21 18:45 Influenza Virus Vaccine Quadrival (Flulaval Quad [id number] Syringe) 0.5 ml ONCE ONCE VAX IM 08/08/21 09:00 08/08/21 09:01 DC 08/08/21 10:45 Budesonide (Pulmicort) 0.5 mg RTBID NEB 08/07/21 20:00 08/07/21 19:48 DC Albuterol/ Ipratropium (Duoneb) 3 ml RTQID NEB 08/07/21 20:00 08/07/21 19:49 DC Albuterol/ Ipratropium (Combivent Respimat 20-100 Mcg) 1 puff PRN Q6HRS PRN INH SHORTNESS OF BREATH 08/07/21 20:00 Fluticasone Furoate (ARNUITY 100mcg ELLIPTA) 1 puff BID INH 08/07/21 21:00 08/22/21 08:17 Insulin Human Lispro (HumaLOG) 0-5 UNITS TIDWMEALS SQ 08/08/21 17:00 08/17/21 11:28 DC 08/12/21 12:29 Dextrose (Dextrose 50%-Water Syringe) 12.5 gm PRN Q15MIN PRN IV SEE COMMENTS 08/08/21 17:00 Donepezil HCl (Aricept) 10 mg HS PO 08/08/21 21:00 08/09/21 11:16 DC 08/08/21 20:18 Melatonin (Melatonin) 3 mg QHS PO 08/08/21 21:00 08/21/21 20:14 Rivastigmine (Exelon) 1 patch DAILY TD 08/09/21 09:00 08/11/21 23:50 DC 08/11/21 08:14 Rivastigmine (Exelon) 1 patch DAILY TD 08/12/21 09:00 08/14/21 23:51 DC 08/14/21 08:27 Rivastigmine (Exelon 13.3mg) 1 patch DAILY TD 08/15/21 09:00 08/22/21 08:17 Mirtazapine (Remeron) 7.5 mg QHS PO 08/08/21 21:00 08/21/21 20:14 Sertraline HCl (Zoloft) 25 mg DAILY PO 08/10/21 09:00 08/12/21 21:00 DC 08/12/21 08:59 Sertraline HCl (Zoloft) 50 mg DAILY PO 08/13/21 09:00 08/16/21 13:04 DC 08/16/21 09:00 Albuterol/ Ipratropium (Duoneb) 3 ml PRN QID PRN NEB WHEEZING 08/09/21 14:00 08/10/21 06:39 DC Cephalexin HCl (Keflex) 500 mg TID PO 08/09/21 21:00 08/16/21 21:00 DC 08/16/21 20:47 Lactobacillus Rhamnosus (Culturelle) 1 cap BID PO 08/12/21 21:00 08/22/21 08:16 Sertraline HCl (Zoloft) 75 mg DAILY PO 08/17/21 09:00 08/22/21 08:16 Doxycycline Hyclate (Vibra-Tab) 100 mg BID PO 08/17/21 12:30 08/22/21 17:30 DC 08/22/21 08:16 Trimethoprim/ Sulfamethoxazole (Bactrim Ds) 1 tab BID PO 08/17/21 12:00 08/24/21 11:59 08/22/21 08:15 Metformin HCl (Glucophage) 850 mg BIDWMEALS PO 08/17/21 17:00 08/22/21 17:17 I have reviewed the current psychotropics carefully including drug interactions. Risk benefit ratio favors no change other than as noted in my dictated progress note. Diagnosis: Problems: (1) Impulse control disorder (2) Dementia of the Alzheimer's type with early onset with behavioral disturbance (3) Anxiety disorder, unspecified (4) Dementia, vascular, with depression (5) Dementia, vascular, with delusions (6) Dementia in Alzheimer's disease with depression (7) Dementia in Alzheimer's disease with delusions (8) Major neurocognitive disorder LES MORA MD Aug 22, 2021 20:17
[2021-08-22] MEDS: MIRTAZAPINE 7.5 MG TABLET. PO SCH (21:05)
[2021-08-22] MEDS: MELATONIN 3 MG TABLET PO SCH (21:05)
[2021-08-23 06:27] VITALS: BP 156/71
[2021-08-23] MEDS: LACTOBACILLUS RHAMNOSUS GG 1 CAPSULE. PO SCH ×2 (08:25→20:12)
[2021-08-23] MEDS: SMZ/TMP 800/160MG TABLET. PO SCH ×2 (08:25→20:12)
[2021-08-23] MEDS: CALCIUM CARB/VIT D3 500/200 TABLET PO SCH (08:25)
[2021-08-23] MEDS: SERTRALINE 50 MG TABLET. PO SCH (08:25)
[2021-08-23] MEDS: amLODIPine BESYLATE 5 MG TABLET PO SCH (08:26)
[2021-08-23] MEDS: FLUTICASONE FUROATE 100mcg/INH ELLIPTA INHALER. INH SCH ×2 (08:26→20:12)
[2021-08-23] MEDS: metFORMIN 850 MG TABLET PO SCH ×2 (08:26→17:48)
[2021-08-23] MEDS: FOLIC ACID 1 MG TABLET PO SCH (08:26)
[2021-08-23] MEDS: RIVASTIGMINE 13.3MG PATCH. TD SCH (08:26)
[2021-08-23] MEDS: UBIDECARENONE 50 MG CAPSULE. PO SCH (08:26)
[2021-08-23 15:53] VITALS: BP 157/76
[2021-08-23] MEDS: MIRTAZAPINE 7.5 MG TABLET. PO SCH (20:12)
[2021-08-23] MEDS: MELATONIN 3 MG TABLET PO SCH (20:12)
--- NOTE | 2021-08-23 20:35 | PDOC ---
Exam Note: Marvin Note: Please also refer to the separate dictated note~for this date of service dictated separately.~Patient seen individually. Discussed the patient with Nursing staff reviewed the chart.~Reviewed interim history and current functioning. Reviewed vital signs,~Labs/ Radiology~and current medications noted below. Continue current treatment with the changes noted in the dictated addendum note Assessment: Vital Signs/I&O: Vital Signs Date Time Temp Pulse Resp B/P (MAP) Pulse Ox O2 Delivery O2 Flow Rate FiO2 08/23/21 15:53 97.6 61 16 157/76 (103) 95 Room Air I & O 08/22/21 08/22/21 08/23/21 15:00 23:00 07:00 Intake Total 340 ml 360 ml Balance 340 ml 360 ml Labs: Laboratory Tests Test 08/23/21 07:21 Glucose (Fingerstick) 85 mg/dL (70-99) Current Medications: Meds: Laboratory Tests Test 08/23/21 07:21 Glucose (Fingerstick) 85 mg/dL Current Medications Medications (Trade) Dose Ordered Sig/Joyce Route PRN Reason Start Time Stop Time Status Last Admin Dose Admin Acetaminophen (Tylenol) 650 mg PRN Q4HRS PRN PO pain or fever 08/07/21 18:45 08/11/21 12:18 Albuterol Sulfate (Ventolin) 2.5 mg PRN Q6HRS PRN NEB SHORTNESS OF AIR 08/07/21 18:45 08/07/21 19:47 DC Amlodipine Besylate (Norvasc) 5 mg DAILY PO 08/08/21 09:00 08/23/21 08:26 Vitamin D (Vitamin D3) 5,000 unit WEEKLY PO 08/14/21 09:00 08/21/21 08:06 Donepezil HCl (Aricept) 5 mg HS PO 08/07/21 21:00 08/08/21 18:37 DC 08/07/21 20:18 Melatonin (Melatonin) 6 mg QHS PO 08/07/21 21:00 08/08/21 18:37 DC 08/07/21 20:18 Non-Formulary Medication (Budesonide/ Formoterol Fumarate (Symbicort 160-4.5 Mcg Inhaler)) 2 puff BID IH 08/07/21 21:00 08/07/21 19:24 DC Calcium/Vitamin D (Oscal D 500mg/ 200uts) 1 tab DAILY PO 08/08/21 09:00 08/23/21 08:25 Non-Formulary Medication (Tiotropium [place] (Spiriva)) 1 cap DAILY IH 08/08/21 09:00 08/07/21 19:24 DC Coenzyme Q10 (Coenzyme Q10) 50 mg DAILY PO 08/08/21 09:00 08/23/21 08:26 Folic Acid (Folic Acid) 1 mg DAILY PO 08/08/21 09:00 08/23/21 08:26 Acetaminophen (Tylenol) 650 mg PRN Q6HRS PRN PO MILD PAIN / TEMP > 100.3'F 08/07/21 18:45 08/07/21 18:51 DC Multi-Ingredient Ointment (Analgesic [place]) 1 niles PRN QID PRN TP MUSCLE PAIN 08/07/21 18:45 Al Hydroxide/Mg Hydroxide (Mylanta Plus Xs) 15 ml PRN AFTMEALHC PRN PO DYSPEPSIA 08/07/21 18:45 Magnesium Hydroxide (Milk Of Magnesia) 2,400 mg PRN QHS PRN PO CONSTIPATION 08/07/21 18:45 Influenza Virus Vaccine Quadrival (Flulaval Quad [id number] Syringe) 0.5 ml ONCE ONCE VAX IM 08/08/21 09:00 08/08/21 09:01 DC 08/08/21 10:45 Budesonide (Pulmicort) 0.5 mg RTBID NEB 08/07/21 20:00 08/07/21 19:48 DC Albuterol/ Ipratropium (Duoneb) 3 ml RTQID NEB 08/07/21 20:00 08/07/21 19:49 DC Albuterol/ Ipratropium (Combivent Respimat 20-100 Mcg) 1 puff PRN Q6HRS PRN INH SHORTNESS OF BREATH 08/07/21 20:00 Fluticasone Furoate (ARNUITY 100mcg ELLIPTA) 1 puff BID INH 08/07/21 21:00 08/23/21 20:12 Insulin Human Lispro (HumaLOG) 0-5 UNITS TIDWMEALS SQ 08/08/21 17:00 08/17/21 11:28 DC 08/12/21 12:29 Dextrose (Dextrose 50%-Water Syringe) 12.5 gm PRN Q15MIN PRN IV SEE COMMENTS 08/08/21 17:00 Donepezil HCl (Aricept) 10 mg HS PO 08/08/21 21:00 08/09/21 11:16 DC 08/08/21 20:18 Melatonin (Melatonin) 3 mg QHS PO 08/08/21 21:00 08/23/21 20:12 Rivastigmine (Exelon) 1 patch DAILY TD 08/09/21 09:00 08/11/21 23:50 DC 08/11/21 08:14 Rivastigmine (Exelon) 1 patch DAILY TD 08/12/21 09:00 08/14/21 23:51 DC 08/14/21 08:27 Rivastigmine (Exelon 13.3mg) 1 patch DAILY TD 08/15/21 09:00 08/23/21 08:26 Mirtazapine (Remeron) 7.5 mg QHS PO 08/08/21 21:00 08/23/21 20:12 Sertraline HCl (Zoloft) 25 mg DAILY PO 08/10/21 09:00 08/12/21 21:00 DC 08/12/21 08:59 Sertraline HCl (Zoloft) 50 mg DAILY PO 08/13/21 09:00 08/16/21 13:04 DC 08/16/21 09:00 Albuterol/ Ipratropium (Duoneb) 3 ml PRN QID PRN NEB WHEEZING 08/09/21 14:00 08/10/21 06:39 DC Cephalexin HCl (Keflex) 500 mg TID PO 08/09/21 21:00 08/16/21 21:00 DC 08/16/21 20:47 Lactobacillus Rhamnosus (Culturelle) 1 cap BID PO 08/12/21 21:00 08/23/21 20:12 Sertraline HCl (Zoloft) 75 mg DAILY PO 08/17/21 09:00 08/23/21 08:25 Doxycycline Hyclate (Vibra-Tab) 100 mg BID PO 08/17/21 12:30 08/22/21 17:30 DC 08/22/21 08:16 Trimethoprim/ Sulfamethoxazole (Bactrim Ds) 1 tab BID PO 08/17/21 12:00 08/24/21 11:59 08/23/21 20:12 Metformin HCl (Glucophage) 850 mg BIDWMEALS PO 08/17/21 17:00 08/23/21 17:48 I have reviewed the current psychotropics carefully including drug interactions. Risk benefit ratio favors no change other than as noted in my dictated progress note. Diagnosis: Problems: (1) Impulse control disorder (2) Dementia of the Alzheimer's type with early onset with behavioral disturbance (3) Anxiety disorder, unspecified (4) Dementia, vascular, with depression (5) Dementia, vascular, with delusions (6) Dementia in Alzheimer's disease with depression (7) Dementia in Alzheimer's disease with delusions (8) Major neurocognitive disorder LES MORA MD Aug 23, 2021 20:35
[2021-08-24 06:18] VITALS: BP 141/72
[2021-08-24] MEDS: CALCIUM CARB/VIT D3 500/200 TABLET PO SCH (08:15)
[2021-08-24] MEDS: UBIDECARENONE 50 MG CAPSULE. PO SCH (08:15)
[2021-08-24] MEDS: RIVASTIGMINE 13.3MG PATCH. TD SCH (08:15)
[2021-08-24] MEDS: amLODIPine BESYLATE 5 MG TABLET PO SCH (08:15)
[2021-08-24] MEDS: FOLIC ACID 1 MG TABLET PO SCH (08:16)
[2021-08-24] MEDS: FLUTICASONE FUROATE 100mcg/INH ELLIPTA INHALER. INH SCH ×2 (08:16→21:00)
[2021-08-24] MEDS: SMZ/TMP 800/160MG TABLET. PO SCH (08:16)
[2021-08-24] MEDS: LACTOBACILLUS RHAMNOSUS GG 1 CAPSULE. PO SCH ×2 (08:16→21:00)
[2021-08-24] MEDS: metFORMIN 850 MG TABLET PO SCH ×2 (08:16→17:18)
[2021-08-24] MEDS: SERTRALINE 50 MG TABLET. PO SCH (08:16)
--- NOTE | 2021-08-24 09:53 | PDOC ---
Exam Note: Marvin Note: This note is a late entry for 08/22/2021 covers elements not covered in my initial note. Subjective: The patient was seen individually in the evening of 08/22/2021 with Beatris FRAZIER, discussed and reviewed the chart. The patient slept 7-3/4 hours previous night. Patient has been withdrawn, somewhat flat. He has been irritable. Review of Systems: No CV, , pulmonary, eye system symptoms on review. He is hard of hearing. Mental Status Exam: The patient is oriented to himself. Insight and judgment, recent and remote memory, attention and concentration, fund of knowledge is poor consistent with his diagnoses. Laboratory Data: Reviewed. Impression: Major neurocognitive disorder early Alzheimer, vascular, with delusions, depression, behavioral disturbance. Anxiety disorder unspecified. Impulse control disorder. Plan: Continue current psychotropics unchanged. Received informed consent. Adjust further as clinically indicated. Assessment: Vital Signs/I&O: Vital Signs Date Time Temp Pulse Resp B/P (MAP) Pulse Ox O2 Delivery O2 Flow Rate FiO2 08/24/21 08:15 74 141/72 08/24/21 06:18 98.1 18 94 Room Air I & O 08/23/21 08/23/21 08/24/21 15:00 23:00 07:00 Intake Total 830 ml 600 ml Balance 830 ml 600 ml Labs: Laboratory Tests Test 08/24/21 07:21 Glucose (Fingerstick) 90 mg/dL (70-99) Current Medications: Meds: Laboratory Tests Test 08/24/21 07:21 Glucose (Fingerstick) 90 mg/dL Current Medications Medications (Trade) Dose Ordered Sig/Joyce Route PRN Reason Start Time Stop Time Status Last Admin Dose Admin Acetaminophen (Tylenol) 650 mg PRN Q4HRS PRN PO pain or fever 08/07/21 18:45 08/11/21 12:18 Albuterol Sulfate (Ventolin) 2.5 mg PRN Q6HRS PRN NEB SHORTNESS OF AIR 08/07/21 18:45 08/07/21 19:47 DC Amlodipine Besylate (Norvasc) 5 mg DAILY PO 08/08/21 09:00 08/24/21 08:15 Vitamin D (Vitamin D3) 5,000 unit WEEKLY PO 08/14/21 09:00 08/21/21 08:06 Donepezil HCl (Aricept) 5 mg HS PO 08/07/21 21:00 08/08/21 18:37 DC 08/07/21 20:18 Melatonin (Melatonin) 6 mg QHS PO 08/07/21 21:00 08/08/21 18:37 DC 08/07/21 20:18 Non-Formulary Medication (Budesonide/ Formoterol Fumarate (Symbicort 160-4.5 Mcg Inhaler)) 2 puff BID IH 08/07/21 21:00 08/07/21 19:24 DC Calcium/Vitamin D (Oscal D 500mg/ 200uts) 1 tab DAILY PO 08/08/21 09:00 08/24/21 08:15 Non-Formulary Medication (Tiotropium [place] (Spiriva)) 1 cap DAILY IH 08/08/21 09:00 08/07/21 19:24 DC Coenzyme Q10 (Coenzyme Q10) 50 mg DAILY PO 08/08/21 09:00 08/24/21 08:15 Folic Acid (Folic Acid) 1 mg DAILY PO 08/08/21 09:00 08/24/21 08:16 Acetaminophen (Tylenol) 650 mg PRN Q6HRS PRN PO MILD PAIN / TEMP > 100.3'F 08/07/21 18:45 08/07/21 18:51 DC Multi-Ingredient Ointment (Analgesic [place]) 1 niles PRN QID PRN TP MUSCLE PAIN 08/07/21 18:45 Al Hydroxide/Mg Hydroxide (Mylanta Plus Xs) 15 ml PRN AFTMEALHC PRN PO DYSPEPSIA 08/07/21 18:45 Magnesium Hydroxide (Milk Of Magnesia) 2,400 mg PRN QHS PRN PO CONSTIPATION 08/07/21 18:45 Influenza Virus Vaccine Quadrival (Flulaval Quad [id number] Syringe) 0.5 ml ONCE ONCE VAX IM 08/08/21 09:00 08/08/21 09:01 DC 08/08/21 10:45 Budesonide (Pulmicort) 0.5 mg RTBID NEB 08/07/21 20:00 08/07/21 19:48 DC Albuterol/ Ipratropium (Duoneb) 3 ml RTQID NEB 08/07/21 20:00 08/07/21 19:49 DC Albuterol/ Ipratropium (Combivent Respimat 20-100 Mcg) 1 puff PRN Q6HRS PRN INH SHORTNESS OF BREATH 08/07/21 20:00 Fluticasone Furoate (ARNUITY 100mcg ELLIPTA) 1 puff BID INH 08/07/21 21:00 08/24/21 08:16 Insulin Human Lispro (HumaLOG) 0-5 UNITS TIDWMEALS SQ 08/08/21 17:00 08/17/21 11:28 DC 08/12/21 12:29 Dextrose (Dextrose 50%-Water Syringe) 12.5 gm PRN Q15MIN PRN IV SEE COMMENTS 08/08/21 17:00 Donepezil HCl (Aricept) 10 mg HS PO 08/08/21 21:00 08/09/21 11:16 DC 08/08/21 20:18 Melatonin (Melatonin) 3 mg QHS PO 08/08/21 21:00 08/23/21 20:12 Rivastigmine (Exelon) 1 patch DAILY TD 08/09/21 09:00 08/11/21 23:50 DC 08/11/21 08:14 Rivastigmine (Exelon) 1 patch DAILY TD 08/12/21 09:00 08/14/21 23:51 DC 08/14/21 08:27 Rivastigmine (Exelon 13.3mg) 1 patch DAILY TD 08/15/21 09:00 08/24/21 08:15 Mirtazapine (Remeron) 7.5 mg QHS PO 08/08/21 21:00 08/23/21 20:12 Sertraline HCl (Zoloft) 25 mg DAILY PO 08/10/21 09:00 08/12/21 21:00 DC 08/12/21 08:59 Sertraline HCl (Zoloft) 50 mg DAILY PO 08/13/21 09:00 08/16/21 13:04 DC 08/16/21 09:00 Albuterol/ Ipratropium (Duoneb) 3 ml PRN QID PRN NEB WHEEZING 08/09/21 14:00 08/10/21 06:39 DC Cephalexin HCl (Keflex) 500 mg TID PO 08/09/21 21:00 08/16/21 21:00 DC 08/16/21 20:47 Lactobacillus Rhamnosus (Culturelle) 1 cap BID PO 08/12/21 21:00 08/24/21 08:16 Sertraline HCl (Zoloft) 75 mg DAILY PO 08/17/21 09:00 08/24/21 08:16 Doxycycline Hyclate (Vibra-Tab) 100 mg BID PO 08/17/21 12:30 08/22/21 17:30 DC 08/22/21 08:16 Trimethoprim/ Sulfamethoxazole (Bactrim Ds) 1 tab BID PO 08/17/21 12:00 08/24/21 11:59 08/24/21 08:16 Metformin HCl (Glucophage) 850 mg BIDWMEALS PO 08/17/21 17:00 08/24/21 08:16 I have reviewed the current psychotropics carefully including drug interactions. Risk benefit ratio favors no change other than as noted in my dictated progress note. Diagnosis: Problems: (1) Impulse control disorder (2) Dementia of the Alzheimer's type with early onset with behavioral disturbance (3) Anxiety disorder, unspecified (4) Dementia, vascular, with depression (5) Dementia, vascular, with delusions (6) Dementia in Alzheimer's disease with depression (7) Dementia in Alzheimer's disease with delusions (8) Major neurocognitive disorder LES MORA MD Aug 24, 2021 09:53
--- NOTE | 2021-08-24 10:10 | PDOC ---
Exam Note: Marvin Note: This note is a late entry for 08/23/2021 covers elements not covered in my initial note. Subjective: The patient was reviewed at treatment team meeting individually in the morning on 08/23/2021 with Evelyn Prado, Heather Fontanez, and Rebekah Onofre (social research assistant), Jenny, activity therapy, Meghna FRAZIER, Automatic Spreader Operator, and Ila RN, discussed and reviewed the chart. We discussed the patients diagnoses, progress, psychotropic medications. The patient slept 8- 1/2 hours previous night. Patient was quite irritable due to the cold wind blown from the air-conditioning vents. He attended 2 groups. Also discussed with Chad FRAZIER in the evening. Review of Systems: No CV, , pulmonary, eye system symptoms on review. He is hard of hearing. Mental Status Exam: The patient is oriented to himself and situation. Speech has some latency, coherent. Abstraction fair. Computation impaired. Mood and affect somewhat depressed and withdrawn. Laboratory Data: Reviewed. Impression: Major neurocognitive disorder Alzheimer, vascular, with delusions, depression, behavioral disturbance. Anxiety disorder unspecified. Impulse control disorder. Plan: Continue rest psychotropics unchanged. Assessment: Vital Signs/I&O: Vital Signs Date Time Temp Pulse Resp B/P (MAP) Pulse Ox O2 Delivery O2 Flow Rate FiO2 08/24/21 08:15 74 141/72 08/24/21 06:18 98.1 18 94 Room Air I & O 08/23/21 08/23/21 08/24/21 15:00 23:00 07:00 Intake Total 830 ml 600 ml Balance 830 ml 600 ml Labs: Laboratory Tests Test 08/24/21 07:21 Glucose (Fingerstick) 90 mg/dL (70-99) Current Medications: Meds: Laboratory Tests Test 08/24/21 07:21 Glucose (Fingerstick) 90 mg/dL Current Medications Medications (Trade) Dose Ordered Sig/Joyce Route PRN Reason Start Time Stop Time Status Last Admin Dose Admin Acetaminophen (Tylenol) 650 mg PRN Q4HRS PRN PO pain or fever 08/07/21 18:45 08/11/21 12:18 Albuterol Sulfate (Ventolin) 2.5 mg PRN Q6HRS PRN NEB SHORTNESS OF AIR 08/07/21 18:45 08/07/21 19:47 DC Amlodipine Besylate (Norvasc) 5 mg DAILY PO 08/08/21 09:00 08/24/21 08:15 Vitamin D (Vitamin D3) 5,000 unit WEEKLY PO 08/14/21 09:00 08/21/21 08:06 Donepezil HCl (Aricept) 5 mg HS PO 08/07/21 21:00 08/08/21 18:37 DC 08/07/21 20:18 Melatonin (Melatonin) 6 mg QHS PO 08/07/21 21:00 08/08/21 18:37 DC 08/07/21 20:18 Non-Formulary Medication (Budesonide/ Formoterol Fumarate (Symbicort 160-4.5 Mcg Inhaler)) 2 puff BID IH 08/07/21 21:00 08/07/21 19:24 DC Calcium/Vitamin D (Oscal D 500mg/ 200uts) 1 tab DAILY PO 08/08/21 09:00 08/24/21 08:15 Non-Formulary Medication (Tiotropium [place] (Spiriva)) 1 cap DAILY IH 08/08/21 09:00 08/07/21 19:24 DC Coenzyme Q10 (Coenzyme Q10) 50 mg DAILY PO 08/08/21 09:00 08/24/21 08:15 Folic Acid (Folic Acid) 1 mg DAILY PO 08/08/21 09:00 08/24/21 08:16 Acetaminophen (Tylenol) 650 mg PRN Q6HRS PRN PO MILD PAIN / TEMP > 100.3'F 08/07/21 18:45 08/07/21 18:51 DC Multi-Ingredient Ointment (Analgesic [place]) 1 niles PRN QID PRN TP MUSCLE PAIN 08/07/21 18:45 Al Hydroxide/Mg Hydroxide (Mylanta Plus Xs) 15 ml PRN AFTMEALHC PRN PO DYSPEPSIA 08/07/21 18:45 Magnesium Hydroxide (Milk Of Magnesia) 2,400 mg PRN QHS PRN PO CONSTIPATION 08/07/21 18:45 Influenza Virus Vaccine Quadrival (Flulaval Quad [id number] Syringe) 0.5 ml ONCE ONCE VAX IM 08/08/21 09:00 08/08/21 09:01 DC 08/08/21 10:45 Budesonide (Pulmicort) 0.5 mg RTBID NEB 08/07/21 20:00 08/07/21 19:48 DC Albuterol/ Ipratropium (Duoneb) 3 ml RTQID NEB 08/07/21 20:00 08/07/21 19:49 DC Albuterol/ Ipratropium (Combivent Respimat 20-100 Mcg) 1 puff PRN Q6HRS PRN INH SHORTNESS OF BREATH 08/07/21 20:00 Fluticasone Furoate (ARNUITY 100mcg ELLIPTA) 1 puff BID INH 08/07/21 21:00 08/24/21 08:16 Insulin Human Lispro (HumaLOG) 0-5 UNITS TIDWMEALS SQ 08/08/21 17:00 08/17/21 11:28 DC 08/12/21 12:29 Dextrose (Dextrose 50%-Water Syringe) 12.5 gm PRN Q15MIN PRN IV SEE COMMENTS 08/08/21 17:00 Donepezil HCl (Aricept) 10 mg HS PO 08/08/21 21:00 08/09/21 11:16 DC 08/08/21 20:18 Melatonin (Melatonin) 3 mg QHS PO 08/08/21 21:00 08/23/21 20:12 Rivastigmine (Exelon) 1 patch DAILY TD 08/09/21 09:00 08/11/21 23:50 DC 08/11/21 08:14 Rivastigmine (Exelon) 1 patch DAILY TD 08/12/21 09:00 08/14/21 23:51 DC 08/14/21 08:27 Rivastigmine (Exelon 13.3mg) 1 patch DAILY TD 08/15/21 09:00 08/24/21 08:15 Mirtazapine (Remeron) 7.5 mg QHS PO 08/08/21 21:00 08/23/21 20:12 Sertraline HCl (Zoloft) 25 mg DAILY PO 08/10/21 09:00 08/12/21 21:00 DC 08/12/21 08:59 Sertraline HCl (Zoloft) 50 mg DAILY PO 08/13/21 09:00 08/16/21 13:04 DC 08/16/21 09:00 Albuterol/ Ipratropium (Duoneb) 3 ml PRN QID PRN NEB WHEEZING 08/09/21 14:00 08/10/21 06:39 DC Cephalexin HCl (Keflex) 500 mg TID PO 08/09/21 21:00 08/16/21 21:00 DC 08/16/21 20:47 Lactobacillus Rhamnosus (Culturelle) 1 cap BID PO 08/12/21 21:00 08/24/21 08:16 Sertraline HCl (Zoloft) 75 mg DAILY PO 08/17/21 09:00 08/24/21 08:16 Doxycycline Hyclate (Vibra-Tab) 100 mg BID PO 08/17/21 12:30 08/22/21 17:30 DC 08/22/21 08:16 Trimethoprim/ Sulfamethoxazole (Bactrim Ds) 1 tab BID PO 08/17/21 12:00 08/24/21 11:59 08/24/21 08:16 Metformin HCl (Glucophage) 850 mg BIDWMEALS PO 08/17/21 17:00 08/24/21 08:16 I have reviewed the current psychotropics carefully including drug interactions. Risk benefit ratio favors no change other than as noted in my dictated progress note. Diagnosis: Problems: (1) Impulse control disorder (2) Dementia of the Alzheimer's type with early onset with behavioral disturbance (3) Anxiety disorder, unspecified (4) Dementia, vascular, with depression (5) Dementia, vascular, with delusions (6) Dementia in Alzheimer's disease with depression (7) Dementia in Alzheimer's disease with delusions (8) Major neurocognitive disorder LES MORA MD Aug 24, 2021 10:10
[2021-08-24 15:53] VITALS: BP 127/70
--- NOTE | 2021-08-24 20:30 | PDOC ---
Exam Note: Marvin Note: Please also refer to the separate dictated note~for this date of service dictated separately.~Patient seen individually. Discussed the patient with Nursing staff reviewed the chart.~Reviewed interim history and current functioning. Reviewed vital signs,~Labs/ Radiology~and current medications noted below. Continue current treatment with the changes noted in the dictated addendum note Assessment: Vital Signs/I&O: Vital Signs Date Time Temp Pulse Resp B/P (MAP) Pulse Ox O2 Delivery O2 Flow Rate FiO2 08/24/21 15:53 97.2 85 20 127/70 (89) 94 08/24/21 06:18 Room Air I & O 08/23/21 08/23/21 08/24/21 15:00 23:00 07:00 Intake Total 830 ml 600 ml Balance 830 ml 600 ml Labs: Laboratory Tests Test 08/24/21 07:21 Glucose (Fingerstick) 90 mg/dL (70-99) Current Medications: Meds: Laboratory Tests Test 08/24/21 07:21 Glucose (Fingerstick) 90 mg/dL Current Medications Medications (Trade) Dose Ordered Sig/Joyce Route PRN Reason Start Time Stop Time Status Last Admin Dose Admin Acetaminophen (Tylenol) 650 mg PRN Q4HRS PRN PO pain or fever 08/07/21 18:45 08/11/21 12:18 Albuterol Sulfate (Ventolin) 2.5 mg PRN Q6HRS PRN NEB SHORTNESS OF AIR 08/07/21 18:45 08/07/21 19:47 DC Amlodipine Besylate (Norvasc) 5 mg DAILY PO 08/08/21 09:00 08/24/21 08:15 Vitamin D (Vitamin D3) 5,000 unit WEEKLY PO 08/14/21 09:00 08/21/21 08:06 Donepezil HCl (Aricept) 5 mg HS PO 08/07/21 21:00 08/08/21 18:37 DC 08/07/21 20:18 Melatonin (Melatonin) 6 mg QHS PO 08/07/21 21:00 08/08/21 18:37 DC 08/07/21 20:18 Non-Formulary Medication (Budesonide/ Formoterol Fumarate (Symbicort 160-4.5 Mcg Inhaler)) 2 puff BID IH 08/07/21 21:00 08/07/21 19:24 DC Calcium/Vitamin D (Oscal D 500mg/ 200uts) 1 tab DAILY PO 08/08/21 09:00 08/24/21 08:15 Non-Formulary Medication (Tiotropium [place] (Spiriva)) 1 cap DAILY IH 08/08/21 09:00 08/07/21 19:24 DC Coenzyme Q10 (Coenzyme Q10) 50 mg DAILY PO 08/08/21 09:00 08/24/21 08:15 Folic Acid (Folic Acid) 1 mg DAILY PO 08/08/21 09:00 08/24/21 08:16 Acetaminophen (Tylenol) 650 mg PRN Q6HRS PRN PO MILD PAIN / TEMP > 100.3'F 08/07/21 18:45 08/07/21 18:51 DC Multi-Ingredient Ointment (Analgesic [place]) 1 niles PRN QID PRN TP MUSCLE PAIN 08/07/21 18:45 Al Hydroxide/Mg Hydroxide (Mylanta Plus Xs) 15 ml PRN AFTMEALHC PRN PO DYSPEPSIA 08/07/21 18:45 Magnesium Hydroxide (Milk Of Magnesia) 2,400 mg PRN QHS PRN PO CONSTIPATION 08/07/21 18:45 Influenza Virus Vaccine Quadrival (Flulaval Quad [id number] Syringe) 0.5 ml ONCE ONCE VAX IM 08/08/21 09:00 08/08/21 09:01 DC 08/08/21 10:45 Budesonide (Pulmicort) 0.5 mg RTBID NEB 08/07/21 20:00 08/07/21 19:48 DC Albuterol/ Ipratropium (Duoneb) 3 ml RTQID NEB 08/07/21 20:00 08/07/21 19:49 DC Albuterol/ Ipratropium (Combivent Respimat 20-100 Mcg) 1 puff PRN Q6HRS PRN INH SHORTNESS OF BREATH 08/07/21 20:00 Fluticasone Furoate (ARNUITY 100mcg ELLIPTA) 1 puff BID INH 08/07/21 21:00 08/24/21 08:16 Insulin Human Lispro (HumaLOG) 0-5 UNITS TIDWMEALS SQ 08/08/21 17:00 08/17/21 11:28 DC 08/12/21 12:29 Dextrose (Dextrose 50%-Water Syringe) 12.5 gm PRN Q15MIN PRN IV SEE COMMENTS 08/08/21 17:00 Donepezil HCl (Aricept) 10 mg HS PO 08/08/21 21:00 08/09/21 11:16 DC 08/08/21 20:18 Melatonin (Melatonin) 3 mg QHS PO 08/08/21 21:00 08/23/21 20:12 Rivastigmine (Exelon) 1 patch DAILY TD 08/09/21 09:00 08/11/21 23:50 DC 08/11/21 08:14 Rivastigmine (Exelon) 1 patch DAILY TD 08/12/21 09:00 08/14/21 23:51 DC 08/14/21 08:27 Rivastigmine (Exelon 13.3mg) 1 patch DAILY TD 08/15/21 09:00 08/24/21 08:15 Mirtazapine (Remeron) 7.5 mg QHS PO 08/08/21 21:00 08/23/21 20:12 Sertraline HCl (Zoloft) 25 mg DAILY PO 08/10/21 09:00 08/12/21 21:00 DC 08/12/21 08:59 Sertraline HCl (Zoloft) 50 mg DAILY PO 08/13/21 09:00 08/16/21 13:04 DC 08/16/21 09:00 Albuterol/ Ipratropium (Duoneb) 3 ml PRN QID PRN NEB WHEEZING 08/09/21 14:00 08/10/21 06:39 DC Cephalexin HCl (Keflex) 500 mg TID PO 08/09/21 21:00 08/16/21 21:00 DC 08/16/21 20:47 Lactobacillus Rhamnosus (Culturelle) 1 cap BID PO 08/12/21 21:00 08/24/21 08:16 Sertraline HCl (Zoloft) 75 mg DAILY PO 08/17/21 09:00 08/24/21 08:16 Doxycycline Hyclate (Vibra-Tab) 100 mg BID PO 08/17/21 12:30 08/22/21 17:30 DC 08/22/21 08:16 Trimethoprim/ Sulfamethoxazole (Bactrim Ds) 1 tab BID PO 08/17/21 12:00 08/24/21 11:59 DC 08/24/21 08:16 Metformin HCl (Glucophage) 850 mg BIDWMEALS PO 08/17/21 17:00 08/24/21 17:18 I have reviewed the current psychotropics carefully including drug interactions. Risk benefit ratio favors no change other than as noted in my dictated progress note. Diagnosis: Problems: (1) Impulse control disorder (2) Dementia of the Alzheimer's type with early onset with behavioral disturbance (3) Anxiety disorder, unspecified (4) Dementia, vascular, with depression (5) Dementia, vascular, with delusions (6) Dementia in Alzheimer's disease with depression (7) Dementia in Alzheimer's disease with delusions (8) Major neurocognitive disorder LES MORA MD Aug 24, 2021 20:30
[2021-08-24] MEDS: MIRTAZAPINE 7.5 MG TABLET. PO SCH (21:00)
[2021-08-24] MEDS: MELATONIN 3 MG TABLET PO SCH (21:00)
[2021-08-25 05:42] VITALS: BP 151/69
[2021-08-25] MEDS: LACTOBACILLUS RHAMNOSUS GG 1 CAPSULE. PO SCH ×2 (08:00→20:10)
[2021-08-25] MEDS: FLUTICASONE FUROATE 100mcg/INH ELLIPTA INHALER. INH SCH ×2 (08:00→20:10)
[2021-08-25] MEDS: RIVASTIGMINE 13.3MG PATCH. TD SCH (08:00)
[2021-08-25] MEDS: metFORMIN 850 MG TABLET PO SCH ×2 (08:01→17:00)
[2021-08-25] MEDS: FOLIC ACID 1 MG TABLET PO SCH (08:01)
[2021-08-25] MEDS: SERTRALINE 50 MG TABLET. PO SCH (08:01)
[2021-08-25] MEDS: amLODIPine BESYLATE 5 MG TABLET PO SCH (08:01)
[2021-08-25] MEDS: CALCIUM CARB/VIT D3 500/200 TABLET PO SCH (08:01)
[2021-08-25] MEDS: UBIDECARENONE 50 MG CAPSULE. PO SCH (08:01)
[2021-08-25 15:32] VITALS: BP 127/75
[2021-08-25] MEDS: MELATONIN 3 MG TABLET PO SCH (20:10)
[2021-08-25] MEDS: MIRTAZAPINE 7.5 MG TABLET. PO SCH (20:11)
--- NOTE | 2021-08-25 21:57 | PDOC ---
Exam Note: Marvin Note: Please also refer to the separate dictated note~for this date of service dictated separately.~Patient seen individually. Discussed the patient with Nursing staff reviewed the chart.~Reviewed interim history and current functioning. Reviewed vital signs,~Labs/ Radiology~and current medications noted below. Continue current treatment with the changes noted in the dictated addendum note Assessment: Vital Signs/I&O: Vital Signs Date Time Temp Pulse Resp B/P (MAP) Pulse Ox O2 Delivery O2 Flow Rate FiO2 08/25/21 15:32 98.3 68 20 127/75 (92) 96 08/25/21 05:42 Room Air I & O 08/24/21 08/24/21 08/25/21 15:00 23:00 07:00 Intake Total 480 ml 0 ml 420 ml Balance 480 ml 0 ml 420 ml Labs: Laboratory Tests Test 08/25/21 07:00 Glucose (Fingerstick) 90 mg/dL (70-99) Current Medications: Meds: Laboratory Tests Test 08/25/21 07:00 Glucose (Fingerstick) 90 mg/dL Current Medications Medications (Trade) Dose Ordered Sig/Joyce Route PRN Reason Start Time Stop Time Status Last Admin Dose Admin Acetaminophen (Tylenol) 650 mg PRN Q4HRS PRN PO pain or fever 08/07/21 18:45 08/11/21 12:18 Albuterol Sulfate (Ventolin) 2.5 mg PRN Q6HRS PRN NEB SHORTNESS OF AIR 08/07/21 18:45 08/07/21 19:47 DC Amlodipine Besylate (Norvasc) 5 mg DAILY PO 08/08/21 09:00 08/25/21 08:01 Vitamin D (Vitamin D3) 5,000 unit WEEKLY PO 08/14/21 09:00 08/21/21 08:06 Donepezil HCl (Aricept) 5 mg HS PO 08/07/21 21:00 08/08/21 18:37 DC 08/07/21 20:18 Melatonin (Melatonin) 6 mg QHS PO 08/07/21 21:00 08/08/21 18:37 DC 08/07/21 20:18 Non-Formulary Medication (Budesonide/ Formoterol Fumarate (Symbicort 160-4.5 Mcg Inhaler)) 2 puff BID IH 08/07/21 21:00 08/07/21 19:24 DC Calcium/Vitamin D (Oscal D 500mg/ 200uts) 1 tab DAILY PO 08/08/21 09:00 08/25/21 08:01 Non-Formulary Medication (Tiotropium [place] (Spiriva)) 1 cap DAILY IH 08/08/21 09:00 08/07/21 19:24 DC Coenzyme Q10 (Coenzyme Q10) 50 mg DAILY PO 08/08/21 09:00 08/25/21 08:01 Folic Acid (Folic Acid) 1 mg DAILY PO 08/08/21 09:00 08/25/21 08:01 Acetaminophen (Tylenol) 650 mg PRN Q6HRS PRN PO MILD PAIN / TEMP > 100.3'F 08/07/21 18:45 08/07/21 18:51 DC Multi-Ingredient Ointment (Analgesic [place]) 1 niles PRN QID PRN TP MUSCLE PAIN 08/07/21 18:45 Al Hydroxide/Mg Hydroxide (Mylanta Plus Xs) 15 ml PRN AFTMEALHC PRN PO DYSPEPSIA 08/07/21 18:45 Magnesium Hydroxide (Milk Of Magnesia) 2,400 mg PRN QHS PRN PO CONSTIPATION 08/07/21 18:45 Influenza Virus Vaccine Quadrival (Flulaval Quad [id number] Syringe) 0.5 ml ONCE ONCE VAX IM 08/08/21 09:00 08/08/21 09:01 DC 08/08/21 10:45 Budesonide (Pulmicort) 0.5 mg RTBID NEB 08/07/21 20:00 08/07/21 19:48 DC Albuterol/ Ipratropium (Duoneb) 3 ml RTQID NEB 08/07/21 20:00 08/07/21 19:49 DC Albuterol/ Ipratropium (Combivent Respimat 20-100 Mcg) 1 puff PRN Q6HRS PRN INH SHORTNESS OF BREATH 08/07/21 20:00 Fluticasone Furoate (ARNUITY 100mcg ELLIPTA) 1 puff BID INH 08/07/21 21:00 08/25/21 20:10 Insulin Human Lispro (HumaLOG) 0-5 UNITS TIDWMEALS SQ 08/08/21 17:00 08/17/21 11:28 DC 08/12/21 12:29 Dextrose (Dextrose 50%-Water Syringe) 12.5 gm PRN Q15MIN PRN IV SEE COMMENTS 08/08/21 17:00 Donepezil HCl (Aricept) 10 mg HS PO 08/08/21 21:00 08/09/21 11:16 DC 08/08/21 20:18 Melatonin (Melatonin) 3 mg QHS PO 08/08/21 21:00 08/25/21 20:10 Rivastigmine (Exelon) 1 patch DAILY TD 08/09/21 09:00 08/11/21 23:50 DC 08/11/21 08:14 Rivastigmine (Exelon) 1 patch DAILY TD 08/12/21 09:00 08/14/21 23:51 DC 08/14/21 08:27 Rivastigmine (Exelon 13.3mg) 1 patch DAILY TD 08/15/21 09:00 08/25/21 08:00 Mirtazapine (Remeron) 7.5 mg QHS PO 08/08/21 21:00 08/25/21 20:11 Sertraline HCl (Zoloft) 25 mg DAILY PO 08/10/21 09:00 08/12/21 21:00 DC 08/12/21 08:59 Sertraline HCl (Zoloft) 50 mg DAILY PO 08/13/21 09:00 08/16/21 13:04 DC 08/16/21 09:00 Albuterol/ Ipratropium (Duoneb) 3 ml PRN QID PRN NEB WHEEZING 08/09/21 14:00 08/10/21 06:39 DC Cephalexin HCl (Keflex) 500 mg TID PO 08/09/21 21:00 08/16/21 21:00 DC 08/16/21 20:47 Lactobacillus Rhamnosus (Culturelle) 1 cap BID PO 08/12/21 21:00 08/25/21 20:10 Sertraline HCl (Zoloft) 75 mg DAILY PO 08/17/21 09:00 08/25/21 08:01 Doxycycline Hyclate (Vibra-Tab) 100 mg BID PO 08/17/21 12:30 08/22/21 17:30 DC 08/22/21 08:16 Trimethoprim/ Sulfamethoxazole (Bactrim Ds) 1 tab BID PO 08/17/21 12:00 08/24/21 11:59 DC 08/24/21 08:16 Metformin HCl (Glucophage) 850 mg BIDWMEALS PO 08/17/21 17:00 08/25/21 17:00 I have reviewed the current psychotropics carefully including drug interactions. Risk benefit ratio favors no change other than as noted in my dictated progress note. Diagnosis: Problems: (1) Impulse control disorder (2) Dementia of the Alzheimer's type with early onset with behavioral disturbance (3) Anxiety disorder, unspecified (4) Dementia, vascular, with depression (5) Dementia, vascular, with delusions (6) Dementia in Alzheimer's disease with depression (7) Dementia in Alzheimer's disease with delusions (8) Major neurocognitive disorder LES MORA MD Aug 25, 2021 21:57
[2021-08-26 05:51] VITALS: BP 130/70
--- NOTE | 2021-08-26 07:33 | PDOC ---
Exam Note: Marvin Note: This note is a late entry for 08/24/2021 covers elements not covered in my initial note. Subjective: The patient was seen individually in the evening of 08/24/2021 with Chad FRAZIER, discussed and reviewed the chart. The patient slept 4-1/4 hours previous night. I met with the patient in the hallway. He remained somewhat isolative, wanting to get back to bed. Review of Systems: No CV, , pulmonary, eye system symptoms on review. He is hard of hearing. Mental Status Exam: The patient is oriented to himself and situation. Speech has some latency, coherent. Abstraction fair. Computation impaired. Mood and affect somewhat depressed and withdrawn. Laboratory Data: Reviewed. Impression: Major neurocognitive disorder Alzheimer, vascular, with delusions, depression, behavioral disturbance. Anxiety disorder unspecified. Impulse control disorder. Plan: Continue rest psychotropics unchanged. Assessment: Vital Signs/I&O: Vital Signs Date Time Temp Pulse Resp B/P (MAP) Pulse Ox O2 Delivery O2 Flow Rate FiO2 08/26/21 05:51 98.0 69 18 130/70 (90) 96 Room Air I & O 08/25/21 08/25/21 08/26/21 15:00 23:00 07:00 Intake Total 720 ml 540 ml Balance 720 ml 540 ml Current Medications: Meds: Current Medications Medications (Trade) Dose Ordered Sig/Joyce Route PRN Reason Start Time Stop Time Status Last Admin Dose Admin Acetaminophen (Tylenol) 650 mg PRN Q4HRS PRN PO pain or fever 08/07/21 18:45 08/11/21 12:18 Albuterol Sulfate (Ventolin) 2.5 mg PRN Q6HRS PRN NEB SHORTNESS OF AIR 08/07/21 18:45 08/07/21 19:47 DC Amlodipine Besylate (Norvasc) 5 mg DAILY PO 08/08/21 09:00 08/25/21 08:01 Vitamin D (Vitamin D3) 5,000 unit WEEKLY PO 08/14/21 09:00 08/21/21 08:06 Donepezil HCl (Aricept) 5 mg HS PO 08/07/21 21:00 08/08/21 18:37 DC 08/07/21 20:18 Melatonin (Melatonin) 6 mg QHS PO 08/07/21 21:00 08/08/21 18:37 DC 08/07/21 20:18 Non-Formulary Medication (Budesonide/ Formoterol Fumarate (Symbicort 160-4.5 Mcg Inhaler)) 2 puff BID IH 08/07/21 21:00 08/07/21 19:24 DC Calcium/Vitamin D (Oscal D 500mg/ 200uts) 1 tab DAILY PO 08/08/21 09:00 08/25/21 08:01 Non-Formulary Medication (Tiotropium [place] (Spiriva)) 1 cap DAILY IH 08/08/21 09:00 08/07/21 19:24 DC Coenzyme Q10 (Coenzyme Q10) 50 mg DAILY PO 08/08/21 09:00 08/25/21 08:01 Folic Acid (Folic Acid) 1 mg DAILY PO 08/08/21 09:00 08/25/21 08:01 Acetaminophen (Tylenol) 650 mg PRN Q6HRS PRN PO MILD PAIN / TEMP > 100.3'F 08/07/21 18:45 08/07/21 18:51 DC Multi-Ingredient Ointment (Analgesic [place]) 1 niles PRN QID PRN TP MUSCLE PAIN 08/07/21 18:45 Al Hydroxide/Mg Hydroxide (Mylanta Plus Xs) 15 ml PRN AFTMEALHC PRN PO DYSPEPSIA 08/07/21 18:45 Magnesium Hydroxide (Milk Of Magnesia) 2,400 mg PRN QHS PRN PO CONSTIPATION 08/07/21 18:45 Influenza Virus Vaccine Quadrival (Flulaval Quad [id number] Syringe) 0.5 ml ONCE ONCE VAX IM 08/08/21 09:00 08/08/21 09:01 DC 08/08/21 10:45 Budesonide (Pulmicort) 0.5 mg RTBID NEB 08/07/21 20:00 08/07/21 19:48 DC Albuterol/ Ipratropium (Duoneb) 3 ml RTQID NEB 08/07/21 20:00 08/07/21 19:49 DC Albuterol/ Ipratropium (Combivent Respimat 20-100 Mcg) 1 puff PRN Q6HRS PRN INH SHORTNESS OF BREATH 08/07/21 20:00 Fluticasone Furoate (ARNUITY 100mcg ELLIPTA) 1 puff BID INH 08/07/21 21:00 08/25/21 20:10 Insulin Human Lispro (HumaLOG) 0-5 UNITS TIDWMEALS SQ 08/08/21 17:00 08/17/21 11:28 DC 08/12/21 12:29 Dextrose (Dextrose 50%-Water Syringe) 12.5 gm PRN Q15MIN PRN IV SEE COMMENTS 08/08/21 17:00 Donepezil HCl (Aricept) 10 mg HS PO 08/08/21 21:00 08/09/21 11:16 DC 08/08/21 20:18 Melatonin (Melatonin) 3 mg QHS PO 08/08/21 21:00 08/25/21 20:10 Rivastigmine (Exelon) 1 patch DAILY TD 08/09/21 09:00 08/11/21 23:50 DC 08/11/21 08:14 Rivastigmine (Exelon) 1 patch DAILY TD 08/12/21 09:00 08/14/21 23:51 DC 08/14/21 08:27 Rivastigmine (Exelon 13.3mg) 1 patch DAILY TD 08/15/21 09:00 08/25/21 08:00 Mirtazapine (Remeron) 7.5 mg QHS PO 08/08/21 21:00 08/25/21 20:11 Sertraline HCl (Zoloft) 25 mg DAILY PO 08/10/21 09:00 08/12/21 21:00 DC 08/12/21 08:59 Sertraline HCl (Zoloft) 50 mg DAILY PO 08/13/21 09:00 08/16/21 13:04 DC 08/16/21 09:00 Albuterol/ Ipratropium (Duoneb) 3 ml PRN QID PRN NEB WHEEZING 08/09/21 14:00 08/10/21 06:39 DC Cephalexin HCl (Keflex) 500 mg TID PO 08/09/21 21:00 08/16/21 21:00 DC 08/16/21 20:47 Lactobacillus Rhamnosus (Culturelle) 1 cap BID PO 08/12/21 21:00 08/25/21 20:10 Sertraline HCl (Zoloft) 75 mg DAILY PO 08/17/21 09:00 08/25/21 08:01 Doxycycline Hyclate (Vibra-Tab) 100 mg BID PO 08/17/21 12:30 08/22/21 17:30 DC 08/22/21 08:16 Trimethoprim/ Sulfamethoxazole (Bactrim Ds) 1 tab BID PO 08/17/21 12:00 08/24/21 11:59 DC 08/24/21 08:16 Metformin HCl (Glucophage) 850 mg BIDWMEALS PO 08/17/21 17:00 08/25/21 17:00 I have reviewed the current psychotropics carefully including drug interactions. Risk benefit ratio favors no change other than as noted in my dictated progress note. Diagnosis: Problems: (1) Impulse control disorder (2) Dementia of the Alzheimer's type with early onset with behavioral di sturbance (3) Anxiety disorder, unspecified (4) Dementia, vascular, with depression (5) Dementia, vascular, with delusions (6) Dementia in Alzheimer's disease with depression (7) Dementia in Alzheimer's disease with delusions (8) Major neurocognitive disorder LES MORA MD Aug 26, 2021 07:33
[2021-08-26] MEDS: RIVASTIGMINE 13.3MG PATCH. TD SCH (08:32)
[2021-08-26] MEDS: metFORMIN 850 MG TABLET PO SCH ×2 (08:32→17:18)
[2021-08-26] MEDS: FLUTICASONE FUROATE 100mcg/INH ELLIPTA INHALER. INH SCH ×2 (08:33→19:40)
[2021-08-26] MEDS: amLODIPine BESYLATE 5 MG TABLET PO SCH (08:33)
[2021-08-26] MEDS: LACTOBACILLUS RHAMNOSUS GG 1 CAPSULE. PO SCH ×2 (08:33→19:40)
[2021-08-26] MEDS: CALCIUM CARB/VIT D3 500/200 TABLET PO SCH (08:33)
[2021-08-26] MEDS: UBIDECARENONE 50 MG CAPSULE. PO SCH (08:33)
[2021-08-26] MEDS: FOLIC ACID 1 MG TABLET PO SCH (08:33)
[2021-08-26] MEDS: SERTRALINE 50 MG TABLET. PO SCH (08:36)
--- NOTE | 2021-08-26 11:47 | PDOC ---
Exam Note: Mravin Note: This note is a late entry for 08/25/2021 covers elements not covered in my initial note. Subjective: The patient was seen individually in the evening of 08/25/2021 with Yomaira FRAZIER, discussed and reviewed the chart. The patient slept 8 hours previous night. He has been somewhat isolative, withdrawn, confused. Review of Systems: No CV, , pulmonary, eye system symptoms on review. He is not aggressive. Mental Status Exam: The patient is oriented to himself and situation. Speech has some latency, coherent. Abstraction fair. Computation impaired. Mood and affect confused, withdrawn. Laboratory Data: Reviewed. Impression: Major neurocognitive disorder Alzheimer, vascular, with delusions, depression, behavioral disturbance. Anxiety disorder unspecified. Impulse control disorder. Plan: Continue rest psychotropics unchanged. Assessment: Vital Signs/I&O: Vital Signs Date Time Temp Pulse Resp B/P (MAP) Pulse Ox O2 Delivery O2 Flow Rate FiO2 08/26/21 08:33 69 130/70 08/26/21 05:51 98.0 18 96 Room Air I & O 08/25/21 08/25/21 08/26/21 15:00 23:00 07:00 Intake Total 720 ml 540 ml Balance 720 ml 540 ml Labs: Laboratory Tests Test 08/26/21 07:55 Glucose (Fingerstick) 109 mg/dL (70-99) H Current Medications: Meds: Laboratory Tests Test 08/26/21 07:55 Glucose (Fingerstick) 109 mg/dL Current Medications Medications (Trade) Dose Ordered Sig/Joyce Route PRN Reason Start Time Stop Time Status Last Admin Dose Admin Acetaminophen (Tylenol) 650 mg PRN Q4HRS PRN PO pain or fever 08/07/21 18:45 08/11/21 12:18 Albuterol Sulfate (Ventolin) 2.5 mg PRN Q6HRS PRN NEB SHORTNESS OF AIR 08/07/21 18:45 08/07/21 19:47 DC Amlodipine Besylate (Norvasc) 5 mg DAILY PO 08/08/21 09:00 08/26/21 08:33 Vitamin D (Vitamin D3) 5,000 unit WEEKLY PO 08/14/21 09:00 08/21/21 08:06 Donepezil HCl (Aricept) 5 mg HS PO 08/07/21 21:00 08/08/21 18:37 DC 08/07/21 20:18 Melatonin (Melatonin) 6 mg QHS PO 08/07/21 21:00 08/08/21 18:37 DC 08/07/21 20:18 Non-Formulary Medication (Budesonide/ Formoterol Fumarate (Symbicort 160-4.5 Mcg Inhaler)) 2 puff BID IH 08/07/21 21:00 08/07/21 19:24 DC Calcium/Vitamin D (Oscal D 500mg/ 200uts) 1 tab DAILY PO 08/08/21 09:00 08/26/21 11:09 DC 08/26/21 08:33 Non-Formulary Medication (Tiotropium [place] (Spiriva)) 1 cap DAILY IH 08/08/21 09:00 08/07/21 19:24 DC Coenzyme Q10 (Coenzyme Q10) 50 mg DAILY PO 08/08/21 09:00 08/26/21 08:33 Folic Acid (Folic Acid) 1 mg DAILY PO 08/08/21 09:00 08/26/21 11:09 DC 08/26/21 08:33 Acetaminophen (Tylenol) 650 mg PRN Q6HRS PRN PO MILD PAIN / TEMP > 100.3'F 08/07/21 18:45 08/07/21 18:51 DC Multi-Ingredient Ointment (Analgesic [place]) 1 niles PRN QID PRN TP MUSCLE PAIN 08/07/21 18:45 Al Hydroxide/Mg Hydroxide (Mylanta Plus Xs) 15 ml PRN AFTMEALHC PRN PO DYSPEPSIA 08/07/21 18:45 Magnesium Hydroxide (Milk Of Magnesia) 2,400 mg PRN QHS PRN PO CONSTIPATION 08/07/21 18:45 Influenza Virus Vaccine Quadrival (Flulaval Quad [id number] Syringe) 0.5 ml ONCE ONCE VAX IM 08/08/21 09:00 08/08/21 09:01 DC 08/08/21 10:45 Budesonide (Pulmicort) 0.5 mg RTBID NEB 08/07/21 20:00 08/07/21 19:48 DC Albuterol/ Ipratropium (Duoneb) 3 ml RTQID NEB 08/07/21 20:00 08/07/21 19:49 DC Albuterol/ Ipratropium (Combivent Respimat 20-100 Mcg) 1 puff PRN Q6HRS PRN INH SHORTNESS OF BREATH 08/07/21 20:00 Fluticasone Furoate (ARNUITY 100mcg ELLIPTA) 1 puff BID INH 08/07/21 21:00 08/26/21 08:33 Insulin Human Lispro (HumaLOG) 0-5 UNITS TIDWMEALS SQ 08/08/21 17:00 08/17/21 11:28 DC 08/12/21 12:29 Dextrose (Dextrose 50%-Water Syringe) 12.5 gm PRN Q15MIN PRN IV SEE COMMENTS 08/08/21 17:00 Donepezil HCl (Aricept) 10 mg HS PO 08/08/21 21:00 08/09/21 11:16 DC 08/08/21 20:18 Melatonin (Melatonin) 3 mg QHS PO 08/08/21 21:00 08/25/21 20:10 Rivastigmine (Exelon) 1 patch DAILY TD 08/09/21 09:00 08/11/21 23:50 DC 08/11/21 08:14 Rivastigmine (Exelon) 1 patch DAILY TD 08/12/21 09:00 08/14/21 23:51 DC 08/14/21 08:27 Rivastigmine (Exelon 13.3mg) 1 patch DAILY TD 08/15/21 09:00 08/26/21 08:32 Mirtazapine (Remeron) 7.5 mg QHS PO 08/08/21 21:00 08/25/21 20:11 Sertraline HCl (Zoloft) 25 mg DAILY PO 08/10/21 09:00 08/12/21 21:00 DC 08/12/21 08:59 Sertraline HCl (Zoloft) 50 mg DAILY PO 08/13/21 09:00 08/16/21 13:04 DC 08/16/21 09:00 Albuterol/ Ipratropium (Duoneb) 3 ml PRN QID PRN NEB WHEEZING 08/09/21 14:00 08/10/21 06:39 DC Cephalexin HCl (Keflex) 500 mg TID PO 08/09/21 21:00 08/16/21 21:00 DC 08/16/21 20:47 Lactobacillus Rhamnosus (Culturelle) 1 cap BID PO 08/12/21 21:00 08/26/21 08:33 Sertraline HCl (Zoloft) 75 mg DAILY PO 08/17/21 09:00 08/26/21 08:36 Doxycycline Hyclate (Vibra-Tab) 100 mg BID PO 08/17/21 12:30 08/22/21 17:30 DC 08/22/21 08:16 Trimethoprim/ Sulfamethoxazole (Bactrim Ds) 1 tab BID PO 08/17/21 12:00 08/24/21 11:59 DC 08/24/21 08:16 Metformin HCl (Glucophage) 850 mg BIDWMEALS PO 08/17/21 17:00 08/26/21 08:32 Calcium/Vitamin D (Oscal D 500mg/ 200uts) 1 tab DAILYWSUP PO 08/27/21 17:00 Folic Acid (Folic Acid) 1 mg DAILYWSUP PO 08/27/21 17:00 I have reviewed the current psychotropics carefully including drug interactions. Risk benefit ratio favors no change other than as noted in my dictated progress note. Diagnosis: Problems: (1) Impulse control disorder (2) Dementia of the Alzheimer's type with early onset with behavioral disturbance (3) Anxiety disorder, unspecified (4) Dementia, vascular, with depression (5) Dementia, vascular, with delusions (6) Dementia in Alzheimer's disease with depression (7) Dementia in Alzheimer's disease with delusions (8) Major neurocognitive disorder LES MORA MD Aug 26, 2021 11:47
[2021-08-26 14:56] VITALS: BP 95/62
[2021-08-26] MEDS: MELATONIN 3 MG TABLET PO SCH (19:40)
[2021-08-26] MEDS: MIRTAZAPINE 7.5 MG TABLET. PO SCH (19:40)
--- NOTE | 2021-08-26 20:50 | PDOC ---
Exam Note: Marvin Note: Please also refer to the separate dictated note~for this date of service dictated separately.~Patient seen individually. Discussed the patient with Nursing staff reviewed the chart.~Reviewed interim history and current functioning. Reviewed vital signs,~Labs/ Radiology~and current medications noted below. Continue current treatment with the changes noted in the dictated addendum note Assessment: Vital Signs/I&O: Vital Signs Date Time Temp Pulse Resp B/P (MAP) Pulse Ox O2 Delivery O2 Flow Rate FiO2 08/26/21 14:56 97.6 71 18 95/62 (73) 97 08/26/21 05:51 Room Air I & O 08/25/21 08/25/21 08/26/21 15:00 23:00 07:00 Intake Total 720 ml 540 ml Balance 720 ml 540 ml Labs: Laboratory Tests Test 08/26/21 07:55 Glucose (Fingerstick) 109 mg/dL (70-99) H Current Medications: Meds: Laboratory Tests Test 08/26/21 07:55 Glucose (Fingerstick) 109 mg/dL Current Medications Medications (Trade) Dose Ordered Sig/Joyce Route PRN Reason Start Time Stop Time Status Last Admin Dose Admin Acetaminophen (Tylenol) 650 mg PRN Q4HRS PRN PO pain or fever 08/07/21 18:45 08/11/21 12:18 Albuterol Sulfate (Ventolin) 2.5 mg PRN Q6HRS PRN NEB SHORTNESS OF AIR 08/07/21 18:45 08/07/21 19:47 DC Amlodipine Besylate (Norvasc) 5 mg DAILY PO 08/08/21 09:00 08/26/21 08:33 Vitamin D (Vitamin D3) 5,000 unit WEEKLY PO 08/14/21 09:00 08/21/21 08:06 Donepezil HCl (Aricept) 5 mg HS PO 08/07/21 21:00 08/08/21 18:37 DC 08/07/21 20:18 Melatonin (Melatonin) 6 mg QHS PO 08/07/21 21:00 08/08/21 18:37 DC 08/07/21 20:18 Non-Formulary Medication (Budesonide/ Formoterol Fumarate (Symbicort 160-4.5 Mcg Inhaler)) 2 puff BID IH 08/07/21 21:00 08/07/21 19:24 DC Calcium/Vitamin D (Oscal D 500mg/ 200uts) 1 tab DAILY PO 08/08/21 09:00 08/26/21 11:09 DC 08/26/21 08:33 Non-Formulary Medication (Tiotropium [place] (Spiriva)) 1 cap DAILY IH 08/08/21 09:00 08/07/21 19:24 DC Coenzyme Q10 (Coenzyme Q10) 50 mg DAILY PO 08/08/21 09:00 08/26/21 08:33 Folic Acid (Folic Acid) 1 mg DAILY PO 08/08/21 09:00 08/26/21 11:09 DC 08/26/21 08:33 Acetaminophen (Tylenol) 650 mg PRN Q6HRS PRN PO MILD PAIN / TEMP > 100.3'F 08/07/21 18:45 08/07/21 18:51 DC Multi-Ingredient Ointment (Analgesic [place]) 1 niles PRN QID PRN TP MUSCLE PAIN 08/07/21 18:45 Al Hydroxide/Mg Hydroxide (Mylanta Plus Xs) 15 ml PRN AFTMEALHC PRN PO DYSPEPSIA 08/07/21 18:45 Magnesium Hydroxide (Milk Of Magnesia) 2,400 mg PRN QHS PRN PO CONSTIPATION 08/07/21 18:45 Influenza Virus Vaccine Quadrival (Flulaval Quad [id number] Syringe) 0.5 ml ONCE ONCE VAX IM 08/08/21 09:00 08/08/21 09:01 DC 08/08/21 10:45 Budesonide (Pulmicort) 0.5 mg RTBID NEB 08/07/21 20:00 08/07/21 19:48 DC Albuterol/ Ipratropium (Duoneb) 3 ml RTQID NEB 08/07/21 20:00 08/07/21 19:49 DC Albuterol/ Ipratropium (Combivent Respimat 20-100 Mcg) 1 puff PRN Q6HRS PRN INH SHORTNESS OF BREATH 08/07/21 20:00 Fluticasone Furoate (ARNUITY 100mcg ELLIPTA) 1 puff BID INH 08/07/21 21:00 08/26/21 19:40 Insulin Human Lispro (HumaLOG) 0-5 UNITS TIDWMEALS SQ 08/08/21 17:00 08/17/21 11:28 DC 08/12/21 12:29 Dextrose (Dextrose 50%-Water Syringe) 12.5 gm PRN Q15MIN PRN IV SEE COMMENTS 08/08/21 17:00 Donepezil HCl (Aricept) 10 mg HS PO 08/08/21 21:00 08/09/21 11:16 DC 08/08/21 20:18 Melatonin (Melatonin) 3 mg QHS PO 08/08/21 21:00 08/26/21 19:40 Rivastigmine (Exelon) 1 patch DAILY TD 08/09/21 09:00 08/11/21 23:50 DC 08/11/21 08:14 Rivastigmine (Exelon) 1 patch DAILY TD 08/12/21 09:00 08/14/21 23:51 DC 08/14/21 08:27 Rivastigmine (Exelon 13.3mg) 1 patch DAILY TD 08/15/21 09:00 08/26/21 08:32 Mirtazapine (Remeron) 7.5 mg QHS PO 08/08/21 21:00 08/26/21 19:40 Sertraline HCl (Zoloft) 25 mg DAILY PO 08/10/21 09:00 08/12/21 21:00 DC 08/12/21 08:59 Sertraline HCl (Zoloft) 50 mg DAILY PO 08/13/21 09:00 08/16/21 13:04 DC 08/16/21 09:00 Albuterol/ Ipratropium (Duoneb) 3 ml PRN QID PRN NEB WHEEZING 08/09/21 14:00 08/10/21 06:39 DC Cephalexin HCl (Keflex) 500 mg TID PO 08/09/21 21:00 08/16/21 21:00 DC 08/16/21 20:47 Lactobacillus Rhamnosus (Culturelle) 1 cap BID PO 08/12/21 21:00 08/26/21 19:40 Sertraline HCl (Zoloft) 75 mg DAILY PO 08/17/21 09:00 08/26/21 08:36 Doxycycline Hyclate (Vibra-Tab) 100 mg BID PO 08/17/21 12:30 08/22/21 17:30 DC 08/22/21 08:16 Trimethoprim/ Sulfamethoxazole (Bactrim Ds) 1 tab BID PO 08/17/21 12:00 08/24/21 11:59 DC 08/24/21 08:16 Metformin HCl (Glucophage) 850 mg BIDWMEALS PO 08/17/21 17:00 08/26/21 17:18 Calcium/Vitamin D (Oscal D 500mg/ 200uts) 1 tab DAILYWSUP PO 08/27/21 17:00 Folic Acid (Folic Acid) 1 mg DAILYWSUP PO 08/27/21 17:00 I have reviewed the current psychotropics carefully including drug interactions. Risk benefit ratio favors no change other than as noted in my dictated progress note. Diagnosis: Problems: (1) Impulse control disorder (2) Dementia of the Alzheimer's type with early onset with behavioral disturbance (3) Anxiety disorder, unspecified (4) Dementia, vascular, with depression (5) Dementia, vascular, with delusions (6) Dementia in Alzheimer's disease with depression (7) Dementia in Alzheimer's disease with delusions (8) Major neurocognitive disorder LES MORA MD Aug 26, 2021 20:50
[2021-08-27 05:57] VITALS: BP 125/61
--- NOTE | 2021-08-27 06:36 | PDOC ---
Exam Note: Marvin Note: This note is a late entry for 08/26/2021 covers elements not covered in my initial note. Subjective: The patient was seen individually in the evening of 08/26/2021 with Lay FRAZIER, discussed and reviewed the chart. The patient slept 8-1/4 hours previous night. He has been withdrawn, somewhat hard of hearing. The patient is alert and oriented x3 but delusional, trying to find his son and daughter and wants transportation to [place]. He does accept redirection. He gets a little defensive with staff shows some inflexibility for behavioral interventions. Review of Systems: No CV, , pulmonary, eye system symptoms on review. Hard of hearing. Mental Status Exam: Patient is oriented to himself and situation. I met with him in his room. Speech has some latency, coherent. Abstraction fair. Computation impaired. Mood and affect confused, withdrawn. Laboratory Data: Reviewed. Impression: Major neurocognitive disorder Alzheimer, vascular, with delusions, depression, behavioral disturbance. Anxiety disorder unspecified. Impulse control disorder. Plan: Continue rest psychotropics unchanged. Assessment: Vital Signs/I&O: Vital Signs Date Time Temp Pulse Resp B/P (MAP) Pulse Ox O2 Delivery O2 Flow Rate FiO2 08/27/21 05:57 98.0 63 16 125/61 (82) 96 08/26/21 05:51 Room Air I & O 08/26/21 08/26/21 08/27/21 15:00 23:00 07:00 Intake Total 600 ml 360 ml Balance 600 ml 360 ml Labs: Laboratory Tests Test 08/26/21 07:55 Glucose (Fingerstick) 109 mg/dL (70-99) H Current Medications: Meds: Laboratory Tests Test 08/26/21 07:55 Glucose (Fingerstick) 109 mg/dL Current Medications Medications (Trade) Dose Ordered Sig/Joyce Route PRN Reason Start Time Stop Time Status Last Admin Dose Admin Acetaminophen (Tylenol) 650 mg PRN Q4HRS PRN PO pain or fever 08/07/21 18:45 08/11/21 12:18 Albuterol Sulfate (Ventolin) 2.5 mg PRN Q6HRS PRN NEB SHORTNESS OF AIR 08/07/21 18:45 08/07/21 19:47 DC Amlodipine Besylate (Norvasc) 5 mg DAILY PO 08/08/21 09:00 08/26/21 08:33 Vitamin D (Vitamin D3) 5,000 unit WEEKLY PO 08/14/21 09:00 08/21/21 08:06 Donepezil HCl (Aricept) 5 mg HS PO 08/07/21 21:00 08/08/21 18:37 DC 08/07/21 20:18 Melatonin (Melatonin) 6 mg QHS PO 08/07/21 21:00 08/08/21 18:37 DC 08/07/21 20:18 Non-Formulary Medication (Budesonide/ Formoterol Fumarate (Symbicort 160-4.5 Mcg Inhaler)) 2 puff BID IH 08/07/21 21:00 08/07/21 19:24 DC Calcium/Vitamin D (Oscal D 500mg/ 200uts) 1 tab DAILY PO 08/08/21 09:00 08/26/21 11:09 DC 08/26/21 08:33 Non-Formulary Medication (Tiotropium [place] (Spiriva)) 1 cap DAILY IH 08/08/21 09:00 08/07/21 19:24 DC Coenzyme Q10 (Coenzyme Q10) 50 mg DAILY PO 08/08/21 09:00 08/26/21 08:33 Folic Acid (Folic Acid) 1 mg DAILY PO 08/08/21 09:00 08/26/21 11:09 DC 08/26/21 08:33 Acetaminophen (Tylenol) 650 mg PRN Q6HRS PRN PO MILD PAIN / TEMP > 100.3'F 08/07/21 18:45 08/07/21 18:51 DC Multi-Ingredient Ointment (Analgesic [place]) 1 niles PRN QID PRN TP MUSCLE PAIN 08/07/21 18:45 Al Hydroxide/Mg Hydroxide (Mylanta Plus Xs) 15 ml PRN AFTMEALHC PRN PO DYSPEPSIA 08/07/21 18:45 Magnesium Hydroxide (Milk Of Magnesia) 2,400 mg PRN QHS PRN PO CONSTIPATION 08/07/21 18:45 Influenza Virus Vaccine Quadrival (Flulaval Quad [id number] Syringe) 0.5 ml ONCE ONCE VAX IM 08/08/21 09:00 08/08/21 09:01 DC 08/08/21 10:45 Budesonide (Pulmicort) 0.5 mg RTBID NEB 08/07/21 20:00 08/07/21 19:48 DC Albuterol/ Ipratropium (Duoneb) 3 ml RTQID NEB 08/07/21 20:00 08/07/21 19:49 DC Albuterol/ Ipratropium (Combivent Respimat 20-100 Mcg) 1 puff PRN Q6HRS PRN INH SHORTNESS OF BREATH 08/07/21 20:00 Fluticasone Furoate (ARNUITY 100mcg ELLIPTA) 1 puff BID INH 08/07/21 21:00 08/26/21 19:40 Insulin Human Lispro (HumaLOG) 0-5 UNITS TIDWMEALS SQ 08/08/21 17:00 08/17/21 11:28 DC 08/12/21 12:29 Dextrose (Dextrose 50%-Water Syringe) 12.5 gm PRN Q15MIN PRN IV SEE COMMENTS 08/08/21 17:00 Donepezil HCl (Aricept) 10 mg HS PO 08/08/21 21:00 08/09/21 11:16 DC 08/08/21 20:18 Melatonin (Melatonin) 3 mg QHS PO 08/08/21 21:00 08/26/21 19:40 Rivastigmine (Exelon) 1 patch DAILY TD 08/09/21 09:00 08/11/21 23:50 DC 08/11/21 08:14 Rivastigmine (Exelon) 1 patch DAILY TD 08/12/21 09:00 08/14/21 23:51 DC 08/14/21 08:27 Rivastigmine (Exelon 13.3mg) 1 patch DAILY TD 08/15/21 09:00 08/26/21 08:32 Mirtazapine (Remeron) 7.5 mg QHS PO 08/08/21 21:00 08/26/21 19:40 Sertraline HCl (Zoloft) 25 mg DAILY PO 08/10/21 09:00 08/12/21 21:00 DC 08/12/21 08:59 Sertraline HCl (Zoloft) 50 mg DAILY PO 08/13/21 09:00 08/16/21 13:04 DC 08/16/21 09:00 Albuterol/ Ipratropium (Duoneb) 3 ml PRN QID PRN NEB WHEEZING 08/09/21 14:00 08/10/21 06:39 DC Cephalexin HCl (Keflex) 500 mg TID PO 08/09/21 21:00 08/16/21 21:00 DC 08/16/21 20:47 Lactobacillus Rhamnosus (Culturelle) 1 cap BID PO 08/12/21 21:00 08/26/21 19:40 Sertraline HCl (Zoloft) 75 mg DAILY PO 08/17/21 09:00 08/26/21 08:36 Doxycycline Hyclate (Vibra-Tab) 100 mg BID PO 08/17/21 12:30 08/22/21 17:30 DC 08/22/21 08:16 Trimethoprim/ Sulfamethoxazole (Bactrim Ds) 1 tab BID PO 08/17/21 12:00 08/24/21 11:59 DC 08/24/21 08:16 Metformin HCl (Glucophage) 850 mg BIDWMEALS PO 08/17/21 17:00 08/26/21 17:18 Calcium/Vitamin D (Oscal D 500mg/ 200uts) 1 tab DAILYWSUP PO 08/27/21 17:00 Folic Acid (Folic Acid) 1 mg DAILYWSUP PO 08/27/21 17:00 I have reviewed the current psychotropics carefully including drug interactions. Risk benefit ratio favors no change other than as noted in my dictated progress note. Diagnosis: Problems: (1) Impulse control disorder (2) Dementia of the Alzheimer's type with early onset with behavioral disturbance (3) Anxiety disorder, unspecified (4) Dementia, vascular, with depression (5) Dementia, vascular, with delusions (6) Dementia in Alzheimer's disease with depression (7) Dementia in Alzheimer's disease with delusions (8) Major neurocognitive disorder LES MORA MD Aug 27, 2021 06:36
[2021-08-27] MEDS: metFORMIN 850 MG TABLET PO SCH ×2 (08:56→17:12)
[2021-08-27] MEDS: RIVASTIGMINE 13.3MG PATCH. TD SCH (08:56)
[2021-08-27] MEDS: UBIDECARENONE 50 MG CAPSULE. PO SCH (08:56)
[2021-08-27] MEDS: amLODIPine BESYLATE 5 MG TABLET PO SCH (08:56)
[2021-08-27] MEDS: SERTRALINE 50 MG TABLET. PO SCH (08:56)
[2021-08-27] MEDS: LACTOBACILLUS RHAMNOSUS GG 1 CAPSULE. PO SCH ×2 (08:56→20:08)
[2021-08-27] MEDS: FLUTICASONE FUROATE 100mcg/INH ELLIPTA INHALER. INH SCH ×2 (09:01→20:08)
[2021-08-27 15:41] VITALS: BP 133/67
[2021-08-27] MEDS ORDERED: CALCIUM CARB/VIT D3 500/200 TABLET PO SCH (17:00)
[2021-08-27] MEDS ORDERED: FOLIC ACID 1 MG TABLET PO SCH (17:00)
[2021-08-27] MEDS: MELATONIN 3 MG TABLET PO SCH (20:08)
[2021-08-27] MEDS: MIRTAZAPINE 7.5 MG TABLET. PO SCH (20:08)
--- NOTE | 2021-08-27 21:05 | PDOC ---
Exam Note: Marvin Note: Please also refer to the separate dictated note~for this date of service dictated separately.~Patient seen individually. Discussed the patient with Nursing staff reviewed the chart.~Reviewed interim history and current functioning. Reviewed vital signs,~Labs/ Radiology~and current medications noted below. Continue current treatment with the changes noted in the dictated addendum note Assessment: Vital Signs/I&O: Vital Signs Date Time Temp Pulse Resp B/P (MAP) Pulse Ox O2 Delivery O2 Flow Rate FiO2 08/27/21 15:41 98.2 72 20 133/67 (89) 96 08/26/21 05:51 Room Air I & O 08/26/21 08/26/21 08/27/21 15:00 23:00 07:00 Intake Total 600 ml 360 ml Balance 600 ml 360 ml Labs: Laboratory Tests Test 08/27/21 07:27 Glucose (Fingerstick) 97 mg/dL (70-99) Current Medications: Meds: Laboratory Tests Test 08/27/21 07:27 Glucose (Fingerstick) 97 mg/dL Current Medications Medications (Trade) Dose Ordered Sig/Joyce Route PRN Reason Start Time Stop Time Status Last Admin Dose Admin Acetaminophen (Tylenol) 650 mg PRN Q4HRS PRN PO pain or fever 08/07/21 18:45 08/11/21 12:18 Albuterol Sulfate (Ventolin) 2.5 mg PRN Q6HRS PRN NEB SHORTNESS OF AIR 08/07/21 18:45 08/07/21 19:47 DC Amlodipine Besylate (Norvasc) 5 mg DAILY PO 08/08/21 09:00 08/27/21 08:56 Vitamin D (Vitamin D3) 5,000 unit WEEKLY PO 08/14/21 09:00 08/21/21 08:06 Donepezil HCl (Aricept) 5 mg HS PO 08/07/21 21:00 08/08/21 18:37 DC 08/07/21 20:18 Melatonin (Melatonin) 6 mg QHS PO 08/07/21 21:00 08/08/21 18:37 DC 08/07/21 20:18 Non-Formulary Medication (Budesonide/ Formoterol Fumarate (Symbicort 160-4.5 Mcg Inhaler)) 2 puff BID IH 08/07/21 21:00 08/07/21 19:24 DC Calcium/Vitamin D (Oscal D 500mg/ 200uts) 1 tab DAILY PO 08/08/21 09:00 08/26/21 11:09 DC 08/26/21 08:33 Non-Formulary Medication (Tiotropium [place] (Spiriva)) 1 cap DAILY IH 08/08/21 09:00 08/07/21 19:24 DC Coenzyme Q10 (Coenzyme Q10) 50 mg DAILY PO 08/08/21 09:00 08/27/21 08:56 Folic Acid (Folic Acid) 1 mg DAILY PO 08/08/21 09:00 08/26/21 11:09 DC 08/26/21 08:33 Acetaminophen (Tylenol) 650 mg PRN Q6HRS PRN PO MILD PAIN / TEMP > 100.3'F 08/07/21 18:45 08/07/21 18:51 DC Multi-Ingredient Ointment (Analgesic [place]) 1 niles PRN QID PRN TP MUSCLE PAIN 08/07/21 18:45 Al Hydroxide/Mg Hydroxide (Mylanta Plus Xs) 15 ml PRN AFTMEALHC PRN PO DYSPEPSIA 08/07/21 18:45 Magnesium Hydroxide (Milk Of Magnesia) 2,400 mg PRN QHS PRN PO CONSTIPATION 08/07/21 18:45 Influenza Virus Vaccine Quadrival (Flulaval Quad [id number] Syringe) 0.5 ml ONCE ONCE VAX IM 08/08/21 09:00 08/08/21 09:01 DC 08/08/21 10:45 Budesonide (Pulmicort) 0.5 mg RTBID NEB 08/07/21 20:00 08/07/21 19:48 DC Albuterol/ Ipratropium (Duoneb) 3 ml RTQID NEB 08/07/21 20:00 08/07/21 19:49 DC Albuterol/ Ipratropium (Combivent Respimat 20-100 Mcg) 1 puff PRN Q6HRS PRN INH SHORTNESS OF BREATH 08/07/21 20:00 Fluticasone Furoate (ARNUITY 100mcg ELLIPTA) 1 puff BID INH 08/07/21 21:00 08/27/21 20:08 Insulin Human Lispro (HumaLOG) 0-5 UNITS TIDWMEALS SQ 08/08/21 17:00 08/17/21 11:28 DC 08/12/21 12:29 Dextrose (Dextrose 50%-Water Syringe) 12.5 gm PRN Q15MIN PRN IV SEE COMMENTS 08/08/21 17:00 Donepezil HCl (Aricept) 10 mg HS PO 08/08/21 21:00 08/09/21 11:16 DC 08/08/21 20:18 Melatonin (Melatonin) 3 mg QHS PO 08/08/21 21:00 08/27/21 20:08 Rivastigmine (Exelon) 1 patch DAILY TD 08/09/21 09:00 08/11/21 23:50 DC 08/11/21 08:14 Rivastigmine (Exelon) 1 patch DAILY TD 08/12/21 09:00 08/14/21 23:51 DC 08/14/21 08:27 Rivastigmine (Exelon 13.3mg) 1 patch DAILY TD 08/15/21 09:00 08/27/21 08:56 Mirtazapine (Remeron) 7.5 mg QHS PO 08/08/21 21:00 08/27/21 20:08 Sertraline HCl (Zoloft) 25 mg DAILY PO 08/10/21 09:00 08/12/21 21:00 DC 08/12/21 08:59 Sertraline HCl (Zoloft) 50 mg DAILY PO 08/13/21 09:00 08/16/21 13:04 DC 08/16/21 09:00 Albuterol/ Ipratropium (Duoneb) 3 ml PRN QID PRN NEB WHEEZING 08/09/21 14:00 08/10/21 06:39 DC Cephalexin HCl (Keflex) 500 mg TID PO 08/09/21 21:00 08/16/21 21:00 DC 08/16/21 20:47 Lactobacillus Rhamnosus (Culturelle) 1 cap BID PO 08/12/21 21:00 08/27/21 20:08 Sertraline HCl (Zoloft) 75 mg DAILY PO 08/17/21 09:00 08/27/21 08:56 Doxycycline Hyclate (Vibra-Tab) 100 mg BID PO 08/17/21 12:30 08/22/21 17:30 DC 08/22/21 08:16 Trimethoprim/ Sulfamethoxazole (Bactrim Ds) 1 tab BID PO 08/17/21 12:00 08/24/21 11:59 DC 08/24/21 08:16 Metformin HCl (Glucophage) 850 mg BIDWMEALS PO 08/17/21 17:00 08/27/21 17:12 Calcium/Vitamin D (Oscal D 500mg/ 200uts) 1 tab DAILYWSUP PO 08/27/21 17:00 08/27/21 17:00 Folic Acid (Folic Acid) 1 mg DAILYWSUP PO 08/27/21 17:00 08/27/21 17:12 Current Medications Medications (Trade) Dose Ordered Sig/Joyce Route PRN Reason Start Time Stop Time Status Last Admin Dose Admin Calcium/Vitamin D (Oscal D 500mg/ 200uts) 1 tab DAILYWSUP PO 08/27/21 17:00 08/27/21 17:00 Folic Acid (Folic Acid) 1 mg DAILYWSUP PO 08/27/21 17:00 08/27/21 17:12 I have reviewed the current psychotropics carefully including drug interactions. Risk benefit ratio favors no change other than as noted in my dictated progress note. Diagnosis: Problems: (1) Impulse control disorder (2) Dementia of the Alzheimer's type with early onset with behavioral disturbance (3) Anxiety disorder, unspecified (4) Dementia, vascular, with depression (5) Dementia, vascular, with delusions (6) Dementia in Alzheimer's disease with depression (7) Dementia in Alzheimer's disease with delusions (8) Major neurocognitive disorder LES MORA MD Aug 27, 2021 21:05
[2021-08-28] MEDS ORDERED: FLUT100B IH (00:58)
[2021-08-28] MEDS ORDERED: IPRA4AER INH (01:00)
[2021-08-28] MEDS ORDERED: LACT1CAP21 PO (01:01)
[2021-08-28] MEDS ORDERED: MAGN24003 PO (01:02)
[2021-08-28] MEDS ORDERED: MAG-115 PO (01:02)
[2021-08-28] MEDS ORDERED: TROL86CR TP (01:03)
[2021-08-28] MEDS ORDERED: MIRT7.5T8 PO (01:05)
[2021-08-28] MEDS ORDERED: SERT25TA PO (01:06)
[2021-08-28] MEDS ORDERED: RIVA1PAT5 TD (01:06)
[2021-08-28] MEDS ORDERED: METF850T8 PO (01:07)
[2021-08-28] MEDS ORDERED: METH57CR17 TP (01:09)
[2021-08-28 06:03] VITALS: BP 124/74
[2021-08-28 08:49] VITALS: BP 124/74
[2021-08-28] MEDS: RIVASTIGMINE 13.3MG PATCH. TD SCH (08:49)
[2021-08-28] MEDS: amLODIPine BESYLATE 5 MG TABLET PO SCH (08:49)
[2021-08-28] MEDS: LACTOBACILLUS RHAMNOSUS GG 1 CAPSULE. PO SCH (08:50)
[2021-08-28] MEDS: SERTRALINE 50 MG TABLET. PO SCH (08:50)
[2021-08-28] MEDS: UBIDECARENONE 50 MG CAPSULE. PO SCH (08:50)
[2021-08-28] MEDS: metFORMIN 850 MG TABLET PO SCH (08:50)
[2021-08-28] MEDS: CHOLECALCIFEROL (VITAMIN D3) 1,000 UNIT TABLET PO SCH (08:50)
[2021-08-28] MEDS: FLUTICASONE FUROATE 100mcg/INH ELLIPTA INHALER. INH SCH (08:50)
--- NOTE | 2021-08-28 20:54 | PDOC ---
Exam Note: Marvin Note: Please also refer to the separate dictated note~for this date of service dictated separately.~Patient seen individually. Discussed the patient with Nursing staff reviewed the chart.~Reviewed interim history and current functioning. Reviewed vital signs,~Labs/ Radiology~and current medications noted below. Continue current treatment with the changes noted in the dictated addendum note Assessment: Vital Signs/I&O: Vital Signs Date Time Temp Pulse Resp B/P (MAP) Pulse Ox O2 Delivery O2 Flow Rate FiO2 08/28/21 08:49 60 124/74 08/28/21 06:03 97.4 18 94 08/26/21 05:51 Room Air I & O 08/27/21 08/27/21 08/28/21 15:00 23:00 07:00 Intake Total 720 ml 240 ml 120 ml Balance 720 ml 240 ml 120 ml Labs: Laboratory Tests Test 08/28/21 07:16 Glucose (Fingerstick) 129 mg/dL (70-99) H Current Medications: Meds: Laboratory Tests Test 08/28/21 07:16 Glucose (Fingerstick) 129 mg/dL Current Medications Medications (Trade) Dose Ordered Sig/Joyce Route PRN Reason Start Time Stop Time Status Last Admin Dose Admin Acetaminophen (Tylenol) 650 mg PRN Q4HRS PRN PO pain or fever 08/07/21 18:45 08/28/21 12:41 DC 08/11/21 12:18 Albuterol Sulfate (Ventolin) 2.5 mg PRN Q6HRS PRN NEB SHORTNESS OF AIR 08/07/21 18:45 08/07/21 19:47 DC Amlodipine Besylate (Norvasc) 5 mg DAILY PO 08/08/21 09:00 08/28/21 12:41 DC 08/28/21 08:49 Vitamin D (Vitamin D3) 5,000 unit WEEKLY PO 08/14/21 09:00 08/28/21 12:41 DC 08/28/21 08:50 Donepezil HCl (Aricept) 5 mg HS PO 08/07/21 21:00 08/08/21 18:37 DC 08/07/21 20:18 Melatonin (Melatonin) 6 mg QHS PO 08/07/21 21:00 08/08/21 18:37 DC 08/07/21 20:18 Non-Formulary Medication (Budesonide/ Formoterol Fumarate (Symbicort 160-4.5 Mcg Inhaler)) 2 puff BID IH 08/07/21 21:00 08/07/21 19:24 DC Calcium/Vitamin D (Oscal D 500mg/ 200uts) 1 tab DAILY PO 08/08/21 09:00 08/26/21 11:09 DC 08/26/21 08:33 Non-Formulary Medication (Tiotropium [place] (Spiriva)) 1 cap DAILY IH 08/08/21 09:00 08/07/21 19:24 DC Coenzyme Q10 (Coenzyme Q10) 50 mg DAILY PO 08/08/21 09:00 08/28/21 12:41 DC 08/28/21 08:50 Folic Acid (Folic Acid) 1 mg DAILY PO 08/08/21 09:00 08/26/21 11:09 DC 08/26/21 08:33 Acetaminophen (Tylenol) 650 mg PRN Q6HRS PRN PO MILD PAIN / TEMP > 100.3'F 08/07/21 18:45 08/07/21 18:51 DC Multi-Ingredient Ointment (Analgesic [place]) 1 niles PRN QID PRN TP MUSCLE PAIN 08/07/21 18:45 08/28/21 12:41 DC Al Hydroxide/Mg Hydroxide (Mylanta Plus Xs) 15 ml PRN AFTMEALHC PRN PO DYSPEPSIA 08/07/21 18:45 08/28/21 12:41 DC Magnesium Hydroxide (Milk Of Magnesia) 2,400 mg PRN QHS PRN PO CONSTIPATION 08/07/21 18:45 08/28/21 12:41 DC Influenza Virus Vaccine Quadrival (Flulaval Quad [id number] Syringe) 0.5 ml ONCE ONCE VAX IM 08/08/21 09:00 08/08/21 09:01 DC 08/08/21 10:45 Budesonide (Pulmicort) 0.5 mg RTBID NEB 08/07/21 20:00 08/07/21 19:48 DC Albuterol/ Ipratropium (Duoneb) 3 ml RTQID NEB 08/07/21 20:00 08/07/21 19:49 DC Albuterol/ Ipratropium (Combivent Respimat 20-100 Mcg) 1 puff PRN Q6HRS PRN INH SHORTNESS OF BREATH 08/07/21 20:00 08/28/21 12:41 DC Fluticasone Furoate (ARNUITY 100mcg ELLIPTA) 1 puff BID INH 08/07/21 21:00 08/28/21 12:41 DC 08/28/21 08:50 Insulin Human Lispro (HumaLOG) 0-5 UNITS TIDWMEALS SQ 08/08/21 17:00 08/17/21 11:28 DC 08/12/21 12:29 Dextrose (Dextrose 50%-Water Syringe) 12.5 gm PRN Q15MIN PRN IV SEE COMMENTS 08/08/21 17:00 08/28/21 12:41 DC Donepezil HCl (Aricept) 10 mg HS PO 08/08/21 21:00 08/09/21 11:16 DC 08/08/21 20:18 Melatonin (Melatonin) 3 mg QHS PO 08/08/21 21:00 08/28/21 12:41 DC 08/27/21 20:08 Rivastigmine (Exelon) 1 patch DAILY TD 08/09/21 09:00 08/11/21 23:50 DC 08/11/21 08:14 Rivastigmine (Exelon) 1 patch DAILY TD 08/12/21 09:00 08/14/21 23:51 DC 08/14/21 08:27 Rivastigmine (Exelon 13.3mg) 1 patch DAILY TD 08/15/21 09:00 08/28/21 12:41 DC 08/28/21 08:49 Mirtazapine (Remeron) 7.5 mg QHS PO 08/08/21 21:00 08/28/21 12:41 DC 08/27/21 20:08 Sertraline HCl (Zoloft) 25 mg DAILY PO 08/10/21 09:00 08/12/21 21:00 DC 08/12/21 08:59 Sertraline HCl (Zoloft) 50 mg DAILY PO 08/13/21 09:00 08/16/21 13:04 DC 08/16/21 09:00 Albuterol/ Ipratropium (Duoneb) 3 ml PRN QID PRN NEB WHEEZING 08/09/21 14:00 08/10/21 06:39 DC Cephalexin HCl (Keflex) 500 mg TID PO 08/09/21 21:00 08/16/21 21:00 DC 08/16/21 20:47 Lactobacillus Rhamnosus (Culturelle) 1 cap BID PO 08/12/21 21:00 08/28/21 12:41 DC 08/28/21 08:50 Sertraline HCl (Zoloft) 75 mg DAILY PO 08/17/21 09:00 08/28/21 12:41 DC 08/28/21 08:50 Doxycycline Hyclate (Vibra-Tab) 100 mg BID PO 08/17/21 12:30 08/22/21 17:30 DC 08/22/21 08:16 Trimethoprim/ Sulfamethoxazole (Bactrim Ds) 1 tab BID PO 08/17/21 12:00 08/24/21 11:59 DC 08/24/21 08:16 Metformin HCl (Glucophage) 850 mg BIDWMEALS PO 08/17/21 17:00 08/28/21 12:41 DC 08/28/21 08:50 Calcium/Vitamin D (Oscal D 500mg/ 200uts) 1 tab DAILYWSUP PO 08/27/21 17:00 08/28/21 12:41 DC 08/27/21 17:00 Folic Acid (Folic Acid) 1 mg DAILYWSUP PO 08/27/21 17:00 08/28/21 12:41 DC 08/27/21 17:12 I have reviewed the current psychotropics carefully including drug interactions. Risk benefit ratio favors no change other than as noted in my dictated progress note. Diagnosis: Problems: (1) Dementia of the Alzheimer's type with early onset with behavioral disturbance (2) Anxiety disorder, unspecified (3) Dementia, vascular, with depression (4) Dementia, vascular, with delusions (5) Dementia in Alzheimer's disease with depression (6) Dementia in Alzheimer's disease with delusions (7) Major neurocognitive disorder (8) Impulse control disorder LES MORA MD Aug 28, 2021 20:54
--- NOTE | 2021-08-28 22:08 | DS ---
DATE OF DISCHARGE: 08/28/2021 DISCHARGE SUMMARY/PSYCHIATRIC PROGRESS NOTE This note covers the elements not covered in my initial note, 08/28. REASON FOR ADMISSION: Please refer to the admission history for details. Briefly, the patient is an 86-year-old male, referred to us from [facility] in [place], [place] by his primary care physician on account of worsening confusion, delusions, attempting to elope from the facility and then getting lost. He was slamming doors, getting agitated, verbally aggressive, attempting to physically hit staff. Behaviors have been deemed dangerous, unmanageable, failed outpatient psychiatric intervention resulting in this referral. SIGNIFICANT FINDINGS AND CLINICAL COURSE: Following admission, the patient seen daily individually by myself from a psychiatric standpoint, medical followup, Dr. Araujo/Dr. Leong. The patient remained confused, withdrawn, somewhat depressed and anxious. Adjustments were made in his psychotropics and he seemed to respond to a combination of Zoloft 75 mg a day, Remeron 7.5 mg at bedtime to help with insomnia, Exelon patch gradually increasing to 13.3 mg a day and melatonin 3 mg at bedtime. Mood appeared to improve. He remained confused, but not agitated, aggressive prior to discharge. REVIEW OF SYSTEMS: Prior to discharge, no CV, , pulmonary, eye, ENT system symptoms on review. Reliability poor. MENTAL STATUS EXAMINATION: Oriented to himself. Insight, judgment, recent and remote memory, attention, concentration, fund of knowledge poor consistent with his diagnoses. FINAL DIAGNOSES: Major neurocognitive disorder; Alzheimer, vascular with delusion; depression; behavioral disturbance; anxiety disorder, unspecified; impulse control disorder, unspecified. Rest unchanged from admission. DISCHARGE MEDICATIONS: Please refer to the MRAD. DISCHARGE INSTRUCTIONS: Outpatient psychiatric and medical followup at the [facility]. Time for discharge day management greater than [address]: Andie TID: [id number]
--- NOTE | 2021-08-29 08:41 | PDOC ---
Exam Note: Marvin Note: This note is a late entry for 08/27/2021 covers elements not covered in my initial note. Subjective: The patient was seen individually in the evening of 08/27/2021 with Vicki FRAZIER, discussed and reviewed the chart. The patient slept 6-1/2 hours previous night. Overall, he remains somewhat withdrawn but not agitated or aggressive. He is confused. Review of Systems: No CV, , pulmonary, eye system symptoms on review. Reliability poor. Mental Status Exam: Patient is oriented to himself and situation. I met with him in his room and discussed discharge plans for 08/28. Insight and judgment, recent and remote memory, attention and concentration, fund of knowledge is poor consistent with his diagnosis. Laboratory Data: Reviewed. Impression: Major neurocognitive disorder Alzheimer, vascular, with delusions, depression, behavioral disturbance. Anxiety disorder unspecified. Impulse control disorder. Plan: Continue rest psychotropics unchanged. Assessment: Vital Signs/I&O: Vital Signs Date Time Temp Pulse Resp B/P (MAP) Pulse Ox O2 Delivery O2 Flow Rate FiO2 08/28/21 08:49 60 124/74 08/28/21 06:03 97.4 18 94 08/26/21 05:51 Room Air I & O 08/28/21 08/28/21 08/29/21 15:00 23:00 07:00 Intake Total 830 ml Balance 830 ml Current Medications: Meds: Current Medications Medications (Trade) Dose Ordered Sig/Joyce Route PRN Reason Start Time Stop Time Status Last Admin Dose Admin Acetaminophen (Tylenol) 650 mg PRN Q4HRS PRN PO pain or fever 08/07/21 18:45 08/28/21 12:41 DC 08/11/21 12:18 Albuterol Sulfate (Ventolin) 2.5 mg PRN Q6HRS PRN NEB SHORTNESS OF AIR 08/07/21 18:45 08/07/21 19:47 DC Amlodipine Besylate (Norvasc) 5 mg DAILY PO 08/08/21 09:00 08/28/21 12:41 DC 08/28/21 08:49 Vitamin D (Vitamin D3) 5,000 unit WEEKLY PO 08/14/21 09:00 08/28/21 12:41 DC 08/28/21 08:50 Donepezil HCl (Aricept) 5 mg HS PO 08/07/21 21:00 08/08/21 18:37 DC 08/07/21 20:18 Melatonin (Melatonin) 6 mg QHS PO 08/07/21 21:00 08/08/21 18:37 DC 08/07/21 20:18 Non-Formulary Medication (Budesonide/ Formoterol Fumarate (Symbicort 160-4.5 Mcg Inhaler)) 2 puff BID IH 08/07/21 21:00 08/07/21 19:24 DC Calcium/Vitamin D (Oscal D 500mg/ 200uts) 1 tab DAILY PO 08/08/21 09:00 08/26/21 11:09 DC 08/26/21 08:33 Non-Formulary Medication (Tiotropium [place] (Spiriva)) 1 cap DAILY IH 08/08/21 09:00 08/07/21 19:24 DC Coenzyme Q10 (Coenzyme Q10) 50 mg DAILY PO 08/08/21 09:00 08/28/21 12:41 DC 08/28/21 08:50 Folic Acid (Folic Acid) 1 mg DAILY PO 08/08/21 09:00 08/26/21 11:09 DC 08/26/21 08:33 Acetaminophen (Tylenol) 650 mg PRN Q6HRS PRN PO MILD PAIN / TEMP > 100.3'F 08/07/21 18:45 08/07/21 18:51 DC Multi-Ingredient Ointment (Analgesic [place]) 1 niles PRN QID PRN TP MUSCLE PAIN 08/07/21 18:45 08/28/21 12:41 DC Al Hydroxide/Mg Hydroxide (Mylanta Plus Xs) 15 ml PRN AFTMEALHC PRN PO DYSPEPSIA 08/07/21 18:45 08/28/21 12:41 DC Magnesium Hydroxide (Milk Of Magnesia) 2,400 mg PRN QHS PRN PO CONSTIPATION 08/07/21 18:45 08/28/21 12:41 DC Influenza Virus Vaccine Quadrival (Flulaval Quad 1275-1109 Syringe) 0.5 ml ONCE ONCE VAX IM 08/08/21 09:00 08/08/21 09:01 DC 08/08/21 10:45 Budesonide (Pulmicort) 0.5 mg RTBID NEB 08/07/21 20:00 08/07/21 19:48 DC Albuterol/ Ipratropium (Duoneb) 3 ml RTQID NEB 08/07/21 20:00 08/07/21 19:49 DC Albuterol/ Ipratropium (Combivent Respimat 20-100 Mcg) 1 puff PRN Q6HRS PRN INH SHORTNESS OF BREATH 08/07/21 20:00 08/28/21 12:41 DC Fluticasone Furoate (ARNUITY 100mcg ELLIPTA) 1 puff BID INH 08/07/21 21:00 08/28/21 12:41 DC 08/28/21 08:50 Insulin Human Lispro (HumaLOG) 0-5 UNITS TIDWMEALS SQ 08/08/21 17:00 08/17/21 11:28 DC 08/12/21 12:29 Dextrose (Dextrose 50%-Water Syringe) 12.5 gm PRN Q15MIN PRN IV SEE COMMENTS 08/08/21 17:00 08/28/21 12:41 DC Donepezil HCl (Aricept) 10 mg HS PO 08/08/21 21:00 08/09/21 11:16 DC 08/08/21 20:18 Melatonin (Melatonin) 3 mg QHS PO 08/08/21 21:00 08/28/21 12:41 DC 08/27/21 20:08 Rivastigmine (Exelon) 1 patch DAILY TD 08/09/21 09:00 08/11/21 23:50 DC 08/11/21 08:14 Rivastigmine (Exelon) 1 patch DAILY TD 08/12/21 09:00 08/14/21 23:51 DC 08/14/21 08:27 Rivastigmine (Exelon 13.3mg) 1 patch DAILY TD 08/15/21 09:00 08/28/21 12:41 DC 08/28/21 08:49 Mirtazapine (Remeron) 7.5 mg QHS PO 08/08/21 21:00 08/28/21 12:41 DC 08/27/21 20:08 Sertraline HCl (Zoloft) 25 mg DAILY PO 08/10/21 09:00 08/12/21 21:00 DC 08/12/21 08:59 Sertraline HCl (Zoloft) 50 mg DAILY PO 08/13/21 09:00 08/16/21 13:04 DC 08/16/21 09:00 Albuterol/ Ipratropium (Duoneb) 3 ml PRN QID PRN NEB WHEEZING 08/09/21 14:00 08/10/21 06:39 DC Cephalexin HCl (Keflex) 500 mg TID PO 08/09/21 21:00 08/16/21 21:00 DC 08/16/21 20:47 Lactobacillus Rhamnosus (Culturelle) 1 cap BID PO 08/12/21 21:00 08/28/21 12:41 DC 08/28/21 08:50 Sertraline HCl (Zoloft) 75 mg DAILY PO 08/17/21 09:00 08/28/21 12:41 DC 08/28/21 08:50 Doxycycline Hyclate (Vibra-Tab) 100 mg BID PO 08/17/21 12:30 08/22/21 17:30 DC 08/22/21 08:16 Trimethoprim/ Sulfamethoxazole (Bactrim Ds) 1 tab BID PO 08/17/21 12:00 08/24/21 11:59 DC 08/24/21 08:16 Metformin HCl (Glucophage) 850 mg BIDWMEALS PO 08/17/21 17:00 08/28/21 12:41 DC 08/28/21 08:50 Calcium/Vitamin D (Oscal D 500mg/ 200uts) 1 tab DAILYWSUP PO 08/27/21 17:00 08/28/21 12:41 DC 08/27/21 17:00 Folic Acid (Folic Acid) 1 mg DAILYWSUP PO 08/27/21 17:00 08/28/21 12:41 DC 08/27/21 17:12 I have reviewed the current psychotropics carefully including drug interactions. Risk benefit ratio favors no change other than as noted in my dictated progress note. Diagnosis: Problems: (1) Dementia of the Alzheimer's type with early onset with behavioral disturbance (2) Anxiety disorder, unspecified (3) Dementia, vascular, with depression (4) Dementia, vascular, with delusions (5) Dementia in Alzheimer's disease with depression (6) Dementia in Alzheimer's disease with delusions (7) Major neurocognitive disorder (8) Impulse control disorder LES MORA MD Aug 29, 2021 08:41
== END 2021-08-28 12:30 | DRG 56 ==
LOC: GEROPSY 18:35
PROVIDERS: ADMIT Psychiatry & Neurology Psychiatry; ATTEND Psychiatry & Neurology Psychiatry
DX: G30.9 Alzheimer's disease, unspecified (principal); F01.51 Vascular dementia, unspecified severity, with behavioral disturbance; E43 Unspecified severe protein-calorie malnutrition; F02.81 Dementia in other diseases classified elsewhere, unspecified severity, with behavioral disturbance; Z68.1 Body mass index [BMI] 19.9 or less, adult; F63.9 Impulse disorder, unspecified; E78.5 Hyperlipidemia, unspecified; E11.9 Type 2 diabetes mellitus without complications; F17.200 Nicotine dependence, unspecified, uncomplicated; F10.10 Alcohol abuse, uncomplicated; E86.0 Dehydration; F32.9 Major depressive disorder, single episode, unspecified; F41.9 Anxiety disorder, unspecified; G47.00 Insomnia, unspecified; I10 Essential (primary) hypertension; K21.9 Gastro-esophageal reflux disease without esophagitis; J44.9 Chronic obstructive pulmonary disease, unspecified; Z53.20 Procedure and treatment not carried out because of patient's decision for unspecified reasons; Z20.822 Contact with and (suspected) exposure to COVID-19; Z66 Do not resuscitate; Z79.899 Other long term (current) drug therapy; Z85.118 Personal history of other malignant neoplasm of bronchus and lung; Z85.828 Personal history of other malignant neoplasm of skin; Z86.008 Personal history of in-situ neoplasm of other site; Z86.73 Personal history of transient ischemic attack (TIA), and cerebral infarction without residual deficits
CPT/HCPCS: 36415; 70450; 71046; 73120; 80053; 80061; 81001; 82306; 82607; 82947; 83036; 83540; 83550; 83735; 84436; 84443; 84480; 85007; 85025; 85379; 86592; 87070; 87077; 87086; 87147; 87186; 90471; 90686; 93005; J1815; U0003; 97110; 97116; 97530; 97535